=== PATIENT | female | born 2000 | race Caucasian/White ===

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

== ENCOUNTER 2018-10-20 23:34 | Emergency (ER) | payer OTHER, SELFPAY ==
[2018-10-20 23:36] VITALS: BP 106/69; PULSE 96; RESP 16; TEMP 36.3; O2SAT 96
--- NOTE | 2018-10-20 23:55 | ED.VISSUMM ---
- ER Visit Summary Date of Service: 10/20/18 Chief Complaint: Back pain History of Present Illness: The patient is a 18 F who presents with back pain that began yesterday. Patient states she was reaching for something and felt something pull in her low back. Patient states this improved last night. Patient states that tonight she was doing the same thing and felt pain in her low back. Patient states tonight the pain has been constant. Patient describes the pain as sharp, stabbing, and throbbing. Patient states the pain is worse with standing and with extension. Patient states pain improves with flexion. Patient states the pain radiates to both lower extremities but is worse on the right. Patient denies any bowel or bladder changes. Patient denies any saddle anesthesia. Patient states she took a dose of baclofen tonight which did not help. Physical Examination: Vital signs are stable. Patient is afebrile. Patient is in no acute distress. Musculoskeletal exam reveals tenderness and mild spasm of the right lumbar paraspinal muscles. There is no bony crepitance or step-off. Range of motion was limited in extension of the lumbar spine secondary to pain. Strength is 5/5 bilateral and lower extremities. There are no sensory deficits noted. Emergency Department Course and Treatment: Patient was given injections of Toradol and morphine here. Patient was instructed to use ice to the area. Patient was instructed to follow-up with her primary care physician in 5 to 7 days. Patient and family understood and were agreeable with the plan. All questions were answered. Disposition: Discharge home Impression: Acute lumbosacral strain This note was generated with The [employer] dictation software. It may contain incorrect words, spelling, and punctuation that were not noted in review of the chart prior to signing ED Disposition - Plan for ED Patient: Disposition: Home or Assisted Living Diagnosis: Acute lumbosacral myofascial strain Instructions: Back Sprain/Strain Referrals: Nasreen Perez MD [Primary Care Provider] - 5-7 Days
[2018-10-21] MEDS: Ketorolac 60 MG/2 ML Vial IM (00:18)
[2018-10-21] MEDS: Morphine 2 MG/ML Syringe IM (00:18)
[2018-10-21 00:48] VITALS: BP 102/60; PULSE 78; RESP 18; O2SAT 98
== END 2018-10-21 00:48 | disposition home or self-care (01) ==
LOC: ED 10-21 00:13
PROVIDERS: Emergency Provider Emergency Medicine; Family Provider Family Medicine; PCP Family Medicine
DX: S39.012A Strain of muscle, fascia and tendon of lower back, initial encounter (principal); X58.XXXA Exposure to other specified factors, initial encounter; Y93.89 Activity, other specified
CPT/HCPCS: 96372; 99282

== ENCOUNTER 2020-12-14 19:00 | Emergency (ER) | payer OTHER, SELFPAY ==
[2020-12-14 19:01] VITALS: BP 117/86; PULSE 88; RESP 17; TEMP 36.9; O2SAT 100; BMI 21.1
[2020-12-14 20:25] LABS: Bacteria 0 SEEN /hpf (None Seen); Mucous, Urine 0 SEEN /hpf (<or=2+); Red Blood Cells-Urine 0 SEEN /hpf (0-5); Squamous Epithelial Cells - UA 0 SEEN /hpf (5-10); White Blood Cells 0 SEEN /hpf (0-5)
[2020-12-14 20:27] LABS: Absolute Lymphocyte Count 2.78 X10^3/uL (0.83-4.51); Absolute Neutrophil Count 3.8 X10^3/uL (2.0-7.7); Basophil# 0.03 X10^3/uL; Basophil% 0.4 % (0-1); Eosinophil# 0.01 X10^3/uL; Eosinophils% 0.1 % (0-5); Hematocrit 40.8 % (37-47); Hemoglobin 13.4 g/dL (12.0-15.0); Lymphocyte # 2.78 X10^3/ul (0.83-4.51); Lymphocyte % 39.3 % (19-41); Mean Corp Hgb Conc 32.8 g/dL (32-36); Mean Corpuscular Hgb 27.3 pg (27.0-32.0); Mean Corpuscular Volume 83.1 fL (81-99); Monocyte# 0.43 X10^3/uL; Monocyte% 6.1 % (0-10); NRBC Flagged by Analyzer 0 % (0-5); Neutrophil # 3.82 X10^3/uL (2.7-7.7); Platelet Count 368 K/mm3 (150-450); RBC Distribution Width CV 12.8 % (11.6-14.6); RBC Distribution Width SD 38.6 fl (35.1-43.9); Red Blood Count 4.91 M/mm3 (4.2-5.4); White Blood Count 7.1 K/mm3 (4.4-11.0)
[2020-12-14 20:28] LABS: Color, Urine Yellow (Yellow); Glucose, Dipstick Normal (Normal); Ketone-Dipstick 15 mg/dl (Negative); Leukocyte Esterase-Dipstick Negative /ul (Negative); Nitrite-Dipstick Negative (Negative); Occult Blood-Urine Negative /ul (Negative); Protein-Dipstick Negative (Negative); Urine Bilirubin Dipstick Negative (Negative); Urine Clarity Sl. Cloudy (Clear); Urine Urobilinogen Normal (Normal)
[2020-12-14 20:40] LABS: Anion Gap 8 (5-15); BUN 6 mg/dL (7-18); BUN/Creat Ratio 8.3 RATIO (10-20); Calcium,Total 9.9 mg/dL (8.5-10.1); Chloride 101 mmol/L (98-107); Creatinine, Serum 0.72 mg/dL (0.55-1.02); EST Glomerular Filtration Rate 107 mL/min (>60); Est Glom Filt Rate - Afr Amer 129 mL/min (>60); Estimated Creatinine Clearance 118.48 ml/min; Glucose 83 mg/dL (74-106); Potassium 3.4 mmol/L (3.5-5.1); Sodium Level 137 mmol/L (136-145)
[2020-12-14 20:41] LABS: Internal QC Validated? YES +Cl - CLEAR BKGD; Pregnancy, Serum, hCG Quali. NEGATIVE Negative
--- NOTE | 2020-12-14 20:58 | CT_ITS ---
STUDY: CT ABDOMEN AND PELVIS WITH CONTRAST REASON FOR EXAM: Female, 20 years old. RLQ abd pain RADIATION DOSAGE (If Supplied By Facility): CTDIvol = ( 10.49 ) mGy, DLP = ( 359.14 ) mGycm TECHNIQUE: Transaxial images were obtained from the dome of the diaphragm to the symphysis pubis without oral contrast. IV 100mL Isovue-300 was administered. Sagittal and coronal images were reconstructed. Individualized dose optimization techniques were used for this CT. COMPARISON: None. FINDINGS: The visualized lung bases are unremarkable. The visualized portions of the heart are within normal limits. Liver is upper normal in size. There is tiny hypoattenuated density in the right lobe which is too small to classify most likely cyst. Bile ducts are nondilated. Normal gallbladder and extrahepatic biliary system. Normal spleen. Normal pancreas. Normal bilateral adrenal glands. Normal right kidney. Normal left kidney. Normal visualized stomach. Mild nonspecific ileus with diffuse fecal retention in colon.. Normal appendix is not clearly visualized however there are no secondary signs for acute appendicitis. Normal abdominal aorta. Normal inferior vena cava. Normal retroperitoneum. Normal urinary bladder. There is a small amount of fluid in the cul-de-sac to the right of midline which may be on the basis of recent ovulation. Normal abdominal wall. Normal osseous structures. CT/Abdomen/Pelvis W IV Cont ONLY IMPRESSION: Nonspecific ileus with diffuse fecal retention in colon. No definitive evidence for acute appendicitis. Small amount of fluid in the cul-de-sac to the right of midline which may be on the basis of recent ovulation. Electronically Signed: Usman West MD at 21:39 EDT , Service support ,
--- NOTE | 2020-12-14 20:59 | EDS_ITS ---
HPI HPI - GI History of Present Illness Chief Complaint: Abd Pain Informant: patient Abdominal Pain/Flank Pain Onset: Days Context: Gradual Onset Timing: Continuous Quality: Aching Location: RLQ Current Severity: Mild Maximum Severity: Mild Worsened by: Nothing; Not Worsened By Car ride Nausea/Vomiting/Emesis GI Symptom: Positive for Nausea; Negative for Vomiting Onset: Days Quality: Negative for Nonbilious Severity: Mild Diarrhea/Melena/Hematochezia GI Symptom: Negative for Diarrhea, Melena and Hematochezia Associated Symptoms Associated Symptoms: Negative for Dysuria, Frequency, Hematuria and Urgency Narrative Narrative: 20-year-old female history of prior cervical spine surgery. No prior abdominal surgeries. States for last 4 to 5 days she has had right lower quadrant abdominal pain. Associated nausea no vomiting. No diarrhea or fever. No vaginal bleeding. Nothing particular makes it better or worse. No trauma. Prior similar symptoms: No Recent Illness/Hospitalization: No PFSH PFSH Medical History no medical history no medical history Home Medications NK 12/14/20 [History Last Taken Unknown] Allergy/AdvReac Type Severity Reaction Status Date / Time metoclopramide [From Reglan] AdvReac Other Verified 12/14/20 19:01 Surgical History no surgical history Social History Smoking Status: Never smoker ROS ROS ED ROS Narrative Right lower quadrant abdominal pain. Nausea. Review of Systems ROS Unobtainable: Denies due to encephalopathy Constitutional Constitutional ED: Denies chills or fever(s) ENT ENT ED: Denies ear pain Cardiovascular Cardiovascular: Denies chest pain or palpitations Respiratory/Chest Respiratory/Chest: Denies cough or dyspnea Gastrointestinal Gastrointestinal: Reports abdominal pain and nausea; Denies constipation, diarrhea or vomiting Genitourinary Genitourinary ED: Denies dysuria or hematuria Musculoskeletal Musculoskeletal: Denies arthralgias or myalgias Integumentary Denies rash Neurologic Neurologic: Denies headache(s) or weakness Psychiatric Psychiatric: Denies depression Endocrine Endocrinology: Denies polyuria Hematologic/Lymphatic Hematologic/Lymphatic: Denies easy bruising Allergic/Immunologic Allergic/Immunologic ED: Denies urticaria EXAM Physical Exam Narrative Exam Narrative: 20-year-old female no acute distress. Exam normal except for very mild tenderness right lower quadrant only. Rest of the abdomen is completely benign. No hernia or mass. No rebound, guarding rigidity. No hernia. Const Vital Signs: 12/14/20 19:01 Temperature 98.4 F Temperature Source Temporal Pulse Rate 88 Respiratory Rate 17 Blood Pressure 117/86 H Blood Pressure Mean 96 Pulse Ox 100 Oxygen Delivery Method Room Air Positive well nourished and well developed; Negative for obese, cachectic, contractures or unkempt General Appearance ED: well developed and NAD; Negative for unkempt, cachectic or contractures Nutritional Appearance: Negative for cachectic or obese HEENT Reports moist mucous membranes normocephalic and atraumatic; Negative for trauma or tenderness Eyes PERRL and EOMs intact bilaterally Neck no lymphadenopathy, supple and no JVD Resp normal respiratory effort and clear to auscultation bilaterally Auscultation: Negative for rales, rhonchi, wheezes or diminished lung sounds Cardio regular rate, regular rhythm, S1 normal heart sound, S2 normal heart sound and no murmurs GI non-tender, non-distended and no masses Inspection: Negative for abdominal distention Auscultation: normoactive bowel sounds; Negative for hyperactive bowel sounds or hypoactive bowel sounds Palpation: soft and tender; Negative for guarding, rigid or rebound tenderness present Back/Spine no CVA tenderness General Back: Negative for CVA tenderness Extremity full ROM General Extremety ED: Negative for edema or tenderness General Extremity: Negative for edema Neuro moves all extremities Sensorium / Orientation: alert, oriented to person, oriented to place and oriented to time; Negative for orientation impaired, confused or lethargic Psych mental status grossly normal Appearance: Negative for unkempt Skin Lesions: no lesions Rashes: no rashes MDM MDM MDM Narrative Medical decision making narrative: Young female 4 to 5-day history of right lower quadrant abdominal pain. Rule out appendicitis even though clinically I doubt it is an appendicitis if it should be going on 4 to 5 days. Exam is otherwise benign. This could also be an ovarian cyst. Clinically I do not think it is a UTI. Repeat exam patient is doing well. This may be secondary to amount of stool in the right side of the colon. There is also a small amount of free fluid which could be secondary to prior ruptured small ovarian cyst. Patient exam is benign and she is afebrile. I do not think this is appendicitis. CAT scan showed no signs that she will be discharged home with Tylenol Motrin for pain. Fluids and fiber to help with constipation. Lab Data Attestation: I reviewed the patient's lab results. Lab results narrative: CBC normal white count of 7. Hemoglobin 13. Electrolytes unremarkable potassium 3.4. Gap of 8. Normal BUN and creatinine. Serum test negative. Urinalysis normal no signs of infection. I went over all test results with the patient and significant other. Labs: Laboratory Results - last 24 hr 12/14/20 12/14/20 12/14/20 20:01 20:01 20:01 WBC 7.1 RBC 4.91 Hgb 13.4 Hct 40.8 MCV 83.1 MCH 27.3 MCHC 32.8 RDW Std Deviation 38.6 RDW Coeff of Isabella 12.8 Plt Count 368 MPV 10.0 Immature Gran % (Auto) 0.100 Neut % (Auto) 54.0 Lymph % (Auto) 39.3 [place] % (Auto) 6.1 Eos % (Auto) 0.1 Baso % (Auto) 0.4 Absolute Neuts (auto) 3.8 Absolute Lymphs (auto) 2.78 Nucleated RBC % 0 Sodium 137 Potassium 3.4 L Chloride 101 Carbon Dioxide 28.0 Anion Gap 8 BUN 6 L Creatinine 0.72 Estim Creat Clear Calc 118.48 Est GFR (MDRD) Af Amer 129 Est GFR (MDRD) Non-Af 107 BUN/Creatinine Ratio 8.3 L Glucose 83 Calcium 9.9 Serum , Qual NEGATIVE Urine Color Urine Clarity Urine pH Ur Specific [place] Urine Protein Urine Glucose (UA) Urine Ketones Urine Occult Blood Urine Nitrite Urine Bilirubin Urine Urobilinogen Ur Leukocyte Esterase Urine RBC Urine WBC Ur Squamous Epith Cells Urine Bacteria Urine Mucus 12/14/20 20:05 WBC RBC Hgb Hct MCV MCH MCHC RDW Std Deviation RDW Coeff of Isabella Plt Count MPV Immature Gran % (Auto) Neut % (Auto) Lymph % (Auto) [place] % (Auto) Eos % (Auto) Baso % (Auto) Absolute Neuts (auto) Absolute Lymphs (auto) Nucleated RBC % Sodium Potassium Chloride Carbon Dioxide Anion Gap BUN Creatinine Estim Creat Clear Calc Est GFR (MDRD) Af Amer Est GFR (MDRD) Non-Af BUN/Creatinine Ratio Glucose Calcium Serum , Qual Urine Color Yellow Urine Clarity Sl. Cloudy Urine pH 7.0 Ur Specific [place] 1.010 Urine Protein Negative Urine Glucose (UA) Normal Urine Ketones 15 H Urine Occult Blood Negative Urine Nitrite Negative Urine Bilirubin Negative Urine Urobilinogen Normal Ur Leukocyte Esterase Negative Urine RBC 0 SEEN Urine WBC 0 SEEN Ur Squamous Epith Cells 0 SEEN Urine Bacteria 0 SEEN Urine Mucus 0 SEEN Radiography Diagnostic Testing: Radiology Impression Abdomen/Pelvis CT 12/14/20 20:58 IMPRESSION: Nonspecific ileus with diffuse fecal retention in colon. No definitive evidence for acute appendicitis. Small amount of fluid in the cul-de-sac to the right of midline which may be on the basis of recent ovulation. Electronically Signed: Usman West MD at 21:39 EDT , Service support , Discharge Plan Triage Chief Complaint: Abd Pain ED Provider: Wiliam Gee Dx/Rx/DC Orders Clinical Impression: Abdominal pain Instructions: Abdominal Pain Prescriptions: No Action NK RF: 0 Primary Care Provider: Nasreen Perez Referrals: Nasreen Perez MD [Primary Care Provider] - 3-5 Days if not improving Activity Restrictions/Additional Instructions: Tylenol and Motrin for pain as needed. Plenty of fluids and fruits and vegetables and fiber to help you have bowel movements. Follow-up with your doctor as needed. There is no signs of this being appendix. It is either secondary to large stool in the right side of your colon. Your small right-sided ovarian cyst that ruptured. Will treat Disposition Disposition: Home, Self Care
[2020-12-14] MEDS: Ondansetron 4 MG/2 ML Vial IV (21:30)
== END 2020-12-14 22:04 | disposition home or self-care (01) ==
PROVIDERS: Emergency Provider Emergency Medicine; PCP Family Medicine
DX: R10.31 Right lower quadrant pain (principal); R11.0 Nausea
CPT/HCPCS: 74177; 80048; 81001; 84703; 85025; 96374; 99283; Q9967; A4216; J2405

== ENCOUNTER 2021-01-28 08:34 | Day surgery (SDC) | payer OTHER, SELFPAY ==
--- NOTE | 2021-01-27 12:53 | PCM.HP.BLA ---
History and Physical Date of Admission: 01/28/21 HPI: The patient is a 21 year old female presenting for pre-operative visit. She is scheduled for Hysteroscopy D&C, for AUB and endometrial fluid, endometrial thickening on US on 01/28/21. Procedure discussed along with risks, benefits and complications. Other alternatives discussed for management. Consent form signed? Yes. ? ? PAST MEDICAL HISTORY PAST MEDICAL HISTORY Diagnosis Date ? Asthma ? ? Knee osteochondritis dessicans 09/2009 ? Right knee, left side, Saw Dr. Thacker ? Menarche 09-15-2013 ? First Menstral ? Migraines ? ? ACH ? PMH - PAST MEDICAL HISTORY OF 11/06/08 ? normal color vision ? ? PAST SURGICAL HISTORY PAST SURGICAL HISTORY Procedure Laterality Date ? BACK SURGERY HX ? 08/21/2019 ? UPPER ENDOSCOPIC ULTRASOUND ? CURRENT MEDICATIONS Current Outpatient Medications Medication Sig Dispense Refill ? ondansetron (ZOFRAN) 4 mg tablet Take 1 tablet by mouth every 8 hours as needed for nausea/vomiting. 20 tablet 0 ? clindamycin-benzoyl peroxide 1-5 % glwp ? MELATONIN ORAL Take 2 mg by mouth once daily. ? ? ? MAGNESIUM GLYCINATE ORAL Take 200 mg by mouth once daily. ? medroxyPROGESTERone (PROVERA) 10 mg tablet Take 1 tablet by mouth once daily. 10 tablet 0 ? Drospirenone-Ethinyl Estradiol (LOREE 28) 3-0.02 mg per tablet take 1 tablet by mouth once daily (Patient not taking: Reported on 01/18/2021 ) 84 tablet 3 ? spironolactone (ALDACTONE) 100 mg tablet Take 1 tablet by mouth once daily. (Patient not taking: Reported on 12/22/2020 ) ? ? ? baclofen (LIORESAL) 10 mg tablet Take 10 mg by mouth as needed. (Patient not taking: Reported on 12/22/2020 ) ? ? ? mupirocin (BACTROBAN) 2 % ointment Multi-use Generic Tube- Apply to nostrils twice per day, starting 5 days prior to surgery (Patient not taking: Reported on 09/30/2019 ) 15 g 0 ? No current facility-administered medications for this visit. ? ? ALLERGIES: Gluten, Mold, Adhesive Tape (Rosins), and Reglan [Metoclopramide Hcl] ? PERSONAL HISTORY: SOCIAL HISTORY Social History ? Tobacco Use ? Smoking status: Never Smoker ? Smokeless tobacco: Never Used Vaping Use ? Vaping Use: Never used Substance Use Topics ? Alcohol use: No ? Drug use: No ? FAMILY HISTORY: FAMILY HISTORY FAMILY HISTORY Problem Relation Age of Onset ? other (JRA) Father ? ? Hypertension Paternal Grandmother ? ? Cataract Paternal Grandmother ? ? Hypertension Paternal Grandfather ? ? Prostate Cancer Paternal Grandfather ? ? other (Other) Paternal Grandfather ? ? Cataract Maternal Grandmother ? ? Macular Degen Maternal Aunt ? ? Macular Degen Maternal Uncle ? ? other (bicuspid aortic valve) Brother ? ? Stroke Other ? ? maternal great g-ma ? ? REVIEW OF SYMPTOMS: GENERAL: denies fevers or chills ENDOCRINOLOGY: has not been on steroids Cardiology : denies palpitations or chest pain Respiratory: denies SOB or cough Hematology: denies history of prolonged bleeding or easy bruising or VTE Allergy: Denies history of personal or family history of allergy to anesthesia ? PHYSICAL EXAMINATION: ? VITALS: Blood pressure 112/66, weight 137 lb (62.1 kg), last menstrual period 12/27/2020. ? GENERAL: The patient is well nourished, well hydrated in no acute distress. , The patient is oriented to time, place, and person. NECK: Supple. No lynphadenopathy, normal thyroid, no thyromegaly. LUNGS: Clear to auscultation bilaterally. no wheezes, rhonchi or rales HEART: Regular rate and rhythm, Normal heart sounds and No murmurs or gallops ? IMPRESSION: AUB, endometrial fluid and thickening ? PLAN: The risks/benefits/alternatives and personal involved for the planned hysteroscopy D&C with possible polypectomy were reviewed with the patient. Her questions were answered to her satisfaction and she desires to proceed. Consent was signed. I reviewed with her postop instructions and expectations. ? ? I have reviewed and updated past medical and surgical history, medications and allergies This H&P was completed on 01/18/2021 in my office Assessment & Plan Assessment/Plan (1) Abnormal uterine bleeding (AUB):
[2021-01-28 09:07] VITALS: BP 118/75; PULSE 84; RESP 18; TEMP 36.9; O2SAT 100; BMI 21.4
[2021-01-28] MEDS: Ketorolac 30 MG/ML Syringe IV (09:20)
[2021-01-28] MEDS: Acetaminophen 500 MG Tablet 1000 MG PO (09:20)
[2021-01-28] MEDS: Lactated Ringers 1,000 ML 15 ML IV (09:25)
[2021-01-28 09:36] LABS: Hematocrit 39.7 % (37-47); Hemoglobin 13.1 g/dL (12.0-15.0); Mean Corpuscular Hgb 27.3 pg (27.0-32.0); Mean Corpuscular Volume 82.9 fL (81-99); Mean Platelet Vol. 9.6 fl (6.2-12.0); Platelet Count 358 K/mm3 (150-450); RBC Distribution Width CV 13.1 % (11.6-14.6); RBC Distribution Width SD 39.8 fl (35.1-43.9); Red Blood Count 4.79 M/mm3 (4.2-5.4); White Blood Count 4.8 K/mm3 (4.4-11.0)
--- NOTE | 2021-01-28 10:00 | EMB_PTH ---
PATIENT: GLADYS BARBA LOC: [facility] [place] U#:[id number] AGE/SX: 21/F ROOM: RE01/28/[address]: Dr. Nadine Vega MD : 2000 BED: DIS: 01/28/2021 SPEC #: [id number] RECD: 01/28/21 11:38 STATUS: LUZ TAMEZ #: [id number] PRASHANT: 01/28/21 10:[address]: Nadine Vega DEPT: SURGICAL PATHOLOGY RECD BY: Morena Bueno ENTERED: 01/28/21 11:47 SP TYPE: ENDOM BX/C LORY DR: Dr. Nasreen Perez MD Tissues: Endometrium, NOS Procedures: Surgery Specimen Level IV HEADER OPERATION: Hysteroscopy, D & C Symphion PRE-OP DIAGNOSIS: Abnormal uterine bleeding TISSUE SUBMITTED: Endometrial curettings MICROSCOPIC DIAGNOSIS Endometrium, curettings: Proliferative endometrium with focal glandular and stromal breakdown. Chronic endometritis. Rare fragments of benign endocervix. AM:sung 01/29/2021 MICROSCOPIC DESCRIPTION Slides are reviewed. GROSS DESCRIPTION Received in fixative is one container labeled with the patient's name and designated endometrial curettings. The specimen consists of multiple irregular fragments of dean-pink soft tissue mixed with mucoid tissue that in aggregate measure 3 x 2.5 x 0.3 cm. The specimen is totally submitted in one cassette. / SJ:sung 01/28/21 TC:3 CPT: 51490
[2021-01-28 10:20] LABS: Internal QC Validated? YES +Cl - CLEAR BKGD; Pregnancy, Urine Negative Negative
[2021-01-28] MEDS: Lubricating Jelly 60 GM Tube 30 GM (10:37)
[2021-01-28] MEDS: Lidocaine 1% /Epi 1:100 (20ml) 20 ML Vial (10:37)
--- NOTE | 2021-01-28 10:47 | PCM.OPRPT ---
Problems Associated Problem List Diagnoses (1) Abnormal uterine bleeding (AUB): Report of Operation Date of Procedure: 01/28/21 Pre-Operative Diagnosis: abnormal uterine bleeding Post-Operative Diagnosis: same Surgery/Procedure Performed:: Hysteroscopy D&C Description of Surgical Findings:: normal cervix, vagina, endometrial cavity Surgeon: Nadine Vega platform material handling supervisor: None Type of Anesthesia: MAC/Supplemental/Local Anesthesiologist: Tez Fine Special Medications: none Specimen's removed: Endometrial curettings Drains: none Estimated Blood Loss (mL): 10 Fluids Replaced: 200 Description of Procedure: The patient was taken to the OR where she was prepped and draped in dorsal lithotomy position. The weighted speculum was placed in the vagina and the anterior lip of the cervix was grasped with a single-tooth tenaculum. A paracervical block was administered with 1% lidocaine with 1-100,000 epinephrine solution. The cervix was dilated serially with Hegar dilators. The Symphion hysteroscope was placed into the uterine cavity and the above findings were noted. Bilateral tubal ostia were identified. The resection device was readied and inserted and a visual D&C was done of the uterine cavity. The instruments were removed from the vagina. The specimen was handed off and sent to pathology. All sponge and needle counts were correct. Vaginal sweep was performed by me. The patient was awakened and taken to the recovery room in stable condition. Calculated hysteroscopic fluid deficit is approximately 300 cc of normal saline Findings: Endometrial cavity: Normal, no fibroids or polyps noted, thin, normal-appearing endometrium without focal abnormality Cervix: Normal Vagina: Normal Grafts/Implants Used: none Procedure Start Time: 10:37 Procedure Stop Time: 10:45 Complications none
--- NOTE | 2021-01-28 10:50 | PCM.DC ---
Discharge Instructions Diet Discharge Diet: No restrictions Activity May resume sexual activity in: 2 weeks Lifting Restrictions: none Dressing / Incision Call your doctor if your incision/area has: Sudden Increased Bleeding and Foul Smelling Discharge Call your doctor if you observe: Fever of 101 or Higher and Using more than 1 pad per hour (for 2 hrs in a row) Follow Up Care Please Follow Up With: Nadine Vega MD When: as needed. Call [phone] to make an appointment or with any concerns. Test Results: Test results from this visit will be discussed in further detail at your follow-up appointment, if applicable. Discharge Plan Admission Primary Reason for Your Visit: D&C for abnormal uterine bleeding Attending Provider: Nadine Vega Primary Care Provider: Nasreen Perez Discharge Orders/Prescriptions Prescriptions: Continued magnesium glycinate 100 mg tablet 100 mg tablet 100 mg PO QDAY RF: 0 melatonin 5 mg capsule 5 mg PO QHS RF: 0 ondansetron HCl [Zofran] 4 mg Tablet 4 mg PO Q6H PRN (Reason: Nausea) RF: 0 Discontinued medroxyprogesterone 10 mg Tablet 10 mg PO DAILY RF: 0 Referrals / Follow Up: Nasreen Perez MD [Primary Care Provider] - Disposition Disposition (needs filled in before D/C Order can be placed): Home, Self Care
[2021-01-28 10:55] VITALS: BP 108/60; BP 118/75; PULSE 94; RESP 18; TEMP 36.1; O2SAT 94
[2021-01-28 11:02] VITALS: BP 118/75; BP 97/61; PULSE 74; RESP 18; O2SAT 96
[2021-01-28 11:10] VITALS: BP 111/54; BP 118/75; PULSE 69; RESP 18; O2SAT 99
[2021-01-28 11:15] VITALS: BP 118/75; BP 124/82; PULSE 82; RESP 18; TEMP 36.6; O2SAT 100
[2021-01-28 12:30] VITALS: BP 111/68; BP 118/75; PULSE 73; RESP 16; O2SAT 99
== END 2021-01-28 12:30 | disposition home or self-care (01) ==
LOC: SDC 08:35 → AC 08:36
PROVIDERS: PCP Family Medicine; Referring Provider Obstetrics & Gynecology; Visit Provider Obstetrics & Gynecology
PROC: 0UB98ZZ Excision of Uterus, Via Natural or Artificial Opening Endoscopic (ICD-10-PCS; CPT 58558; principal; 2021-01-28 09:50)
DX: N93.9 Abnormal uterine and vaginal bleeding, unspecified (principal); N71.1 Chronic inflammatory disease of uterus; Z20.822 Contact with and (suspected) exposure to COVID-19
CPT/HCPCS: 58558; 81025; 85027; 87426; 88305; J7120; J2405

== ENCOUNTER 2021-04-15 10:03 | Outpatient (CLI) | payer OTHER, SELFPAY ==
--- NOTE | 2021-04-15 10:13 | ECHOD_ITS ---
Reason For Study: PALPITATIONS Procedure This was a 2D Doppler, Color Flow transthoracic echocardiogram. Exam performed in department. Left Ventricle Normal LV size. Left ventricular systolic function is normal. The estimated ejection fraction is 55 %. Normal diastology for age. No regional wall motion abnormalities noted. Right Ventricle Normal RV size. Normal systolic function. Atria Normal left atrium. Normal right atrium. Mitral Valve Equivocal mitral valve prolapse. Tricuspid Valve Normal tricuspid valve. Mild tricuspid valve insufficiency. Pulmonary artery systolic pressure is 19 mmHg. Aortic Valve Normal aortic valve. Trisinus/trileaflet aortic valve. Pulmonic Valve Normal pulmonic valve. Great Vessels Normal aortic root. The pulmonary artery is normal size. Normal inferior vena cava. Pericardium/Pleural No pericardial effusion. MMode/2D Measurements & Calculations LVIDd: 4.6 cm IVSd: 0.55 cm Ao root diam: 3.0 cm LVIDs: 3.0 cm LVPWd: 0.67 cm RVDd: 2.7 cm FS: 35.6 % LAV(MOD-sp4): 31.3 ml LA A4 area: 14.4 cm2 LA dimension(2D): 2.6 cm RA A4 area: 11.5 cm2 Time Measurements MV dec time: 0.13 sec Doppler Measurements & Calculations MV E max hector: 75.1 cm/sec Lat Peak E' Hector: 17.4 cm/sec Med Peak E' Hector: 12.5 cm/sec MV A max hector: 48.0 cm/sec E/E' lat: 4.3 E/E' med: 6.0 MV E/A: 1.6 Ao V2 max: 117.6 cm/sec LV V1 max: 92.0 cm/sec PA V2 max: 99.5 cm/sec Ao max P.5 mmHg LV V1 max P.4 mmHg TR max hector: 197.4 cm/sec TR max P.6 mmHg ECHO/Echo Complete Interpretation Summary Normal LV size. Left ventricular systolic function is normal. The estimated ejection fraction is 55 %. Normal diastology for age. Equivocal mitral valve prolapse. Trisinus/trileaflet aortic valve. Normal aortic valve. Ordering Physician: Jeanie Knutson Referring Physician: Nasreen Perez Performed By: Karen Elder RDCS, RVT
== END 2021-04-15 23:59 | disposition short-term general hospital (02) ==
PROVIDERS: PCP Family Medicine; Referring Provider Nurse Practitioner Family; Visit Provider Nurse Practitioner Family
DX: R00.2 Palpitations (principal)
CPT/HCPCS: 93306

== ENCOUNTER → 2021-07-16 | Outpatient (CLI) | payer OTHER, SELFPAY ==
--- NOTE | 2021-07-16 11:11 | RAD_ITS ---
EXAM: XR CHEST, 2 VIEWS CLINICAL INDICATION: ACUTE BRONCHITIS TECHNIQUE: Frontal and lateral views of the chest. This report was created using Deep[employer] report generation technology. COMPARISON: 08/16/2016 FINDINGS: LUNGS AND PLEURAL SPACES: Unremarkable. No consolidation or edema. No pneumothorax. No effusion. HEART: Unremarkable. Cardiac silhouette not enlarged. MEDIASTINUM: Central airways and mediastinal contour are unremarkable. BONES/JOINTS: Unremarkable. SOFT TISSUES: Unremarkable. RAD/Chest PA and Lateral IMPRESSION: No radiographic evidence of acute cardiopulmonary disease. Electronically Signed: Rafael Nava MD at 16:59 EDT Reading Location ID and State: [facility] / [place] , Service support ,
== END | disposition home or self-care (01) ==
LOC: MTRAD 11:10
PROVIDERS: PCP Family Medicine; Referring Provider Family Medicine; Visit Provider Family Medicine
DX: J20.9 Acute bronchitis, unspecified (principal)
CPT/HCPCS: 71046

== ENCOUNTER 2021-10-06 11:24 | Outpatient (CLI) | payer OTHER, SELFPAY | END 2021-10-06 23:59 | disposition home or self-care (01) | PROVIDERS: PCP Family Medicine; Referring Provider Internal Medicine Gastroenterology; Visit Provider Internal Medicine Gastroenterology | DX: D3A.00 Benign carcinoid tumor of unspecified site (principal) | CPT/HCPCS: 36415 ==

== ENCOUNTER 2021-12-22 16:30 | Outpatient (RCR) | payer OTHER, SELFPAY ==
--- NOTE | 2021-06-16 19:15 | HP.PTEVAL ---
Patient's Visit Information GLADYS BARBA is a 21 year old F referred to Physical Therapy by RUY AWAD with a diagnosis of GONCALVES, EDS. Date of Evaluation: 06/16/21 Physical Therapist: BETSY Ortega - Visit Plan Frequency: 2x /Week Duration: 2 Months Plan: 2X/ week for 8 weeks for AT for general progressive light strengthening, core stability, LE strengthening, postural exercises, progressive endurance exercises per patient tolerance. +++Going up and down the stairs is a lot of exhertion for the patient and sometimes her sx are delayed so monitor accordingly. - Subjective Pt has weird boughts of illness throughout her life. In Dec she had stomach issues and then HR stuff and then exercise intolerance. Before that she was rock climbing, yoga, etc and then stop and could not do that. 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 Pt wants to do swim therapy here. They are hoping she can exercise in the water and not get dizzy and feel like pass out. Pt takes in what is happening but does not respond and feels extremely fatigued. Tilt table came back borderline. She has a lot of symptoms of GONCALVES. Waiting on genetic testing because EDS and GONCALVES go together. She is seeing rhumatology, functional medicine, neuro optomotrist and neouromuscular Dr. She has a consult with OT in July. They are doing land based therapy now in supine exercises. She works. 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 She feels the episodes when they come on and she feels foggy and HR starts to elevate. - Pain neck pain Pain Intensity (Out of 10): 4 LBP Pain Intensity (Out of 10): 5 Pain Intensity Range: 5 - Objective Gait: Walks with normal gait pattern with no veering. Stairs: up and down recip with no hand rail. CATSIB: 90 (a little dizzy)... Pt tended to lose her balance to the L especially with EC but did occur with EO. (After the stairs and CATSIB she saw black spots)... LE MMT: B hip flex 4/5, B knee ext and knee flex 4/5, B hip abd 4/5. FGA: 20 - Balance/Special Test Scores Functional Gait Assessment Score: 20 % Disability: 33.3400 CATSIB Score (Max score 120 seconds): 90 Lower Extremity Functional Score: 45 - Goals Goal 1:: Be able to complete I exercise program without having symptoms Goal Time Frame: 6-8 Weeks Goal 2:: Increase CATSIB by 5 points to decrease fall risk (score was 90) Goal Time Frame: 6-8 Weeks Goal 3:: Be able to go up and down the stairs without feeling wiped out Goal Time Frame: 6-8 Weeks Goal 4:: Increase FGA by 3 points (score was 20) Goal Time Frame: 6-8 Weeks - Rehabilitation Potential Rehabilitation Potential: Good - Anticipated Interventions Patient/Client Instruction: Educate patient on: Condition, Plan of Care For the Purpose of:: To decrease pain, To improve nutrient delivery to tissue, To increase oxygenation perfusion, To improve muscle performance and motor function, To improve ability to perform ADL's, To increase tolerance to activity/condition/position, To improve performance and independence with ADL's, To decrease level of supervision to perform tasks, To improve ability of physical actions for home/community/work/leisure, To improve gait and locomotor functions, To improve health of tissue, To improve endurance, To improve balance Therapeutic Exercise to Include: Strength training, Endurance training, Balance training, Postural training, Gait and locomotor training, Neuromotor development, In an aquatic setting, Dynamic Lumbar Stabilization, Scapular Strength/Stabilization For the Purpose of:: To decrease pain, To increase ROM, To improve nutrient delivery to tissue, To improve muscle performance and motor function, To improve ability to perform ADL's, To increase tolerance to activity/condition/position, To improve performance and independence with ADL's, To improve health of tissue, To increase flexibility/ROM, To improve endurance, To improve balance Thank you for the opportunity to evaluate your patient. For Medicare and Medicare HMO plans, please review the plan of care and approve it. It will need to be FAXED BACK to us at [phone] for Medicare purposes. For Medicare only, by signing this I certify the plan of care. Please let me know if there are questions or concerns regarding this plan of care. Physician Signature: Date:
--- NOTE | 2021-07-12 12:16 | HP.OTEVAL_ITS ---
Patient's Visit Information GLADYS BARBA is a 21 year old F, referred to Occupational Therapy by RUY AWAD, with a diagnosis of Hypermobility arthralgia. Date of Evaluation: 07/07/21 Occupational Therapist: Mecca Little, OTR/Jerry, CHT - Subjective This 21 year old female was seen for OT eval with dx of Hypermobility ar thralgia. she arrives today due to pain and weakness in UE. 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 pt states even in collage this did not have the issues- pt also underwent neck sx due to herniated disc in her cervical spine over a year ago. states she felt in Mar-2021 she became weaker on her left side and would like to know what she can do to return to a PLOF. pt states she has had issues with a lot of different. August of 2019 spine sx. neck c4-c5. prior to neck sx she did have sharp shooting pain. will see genetic hector. neromusculare. electrophisiology. functional medicie Dr. vazquez. [facility] Cardiology d/c pt to electrophysiology. 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 - ROM Elbow: right +15/155 left +10/150 Forearm: right/Left WNL ROM Comments: pt demo with hyper extension at left elbow this can cause issues with her ulnar nerve- but she denies tingling/numbness just feels odd - Strength Shoulder: right peak force 21.3# left 13.8# Elbow: right peak force 17# left 14.2# Wrist: right ext peak force 5.4# left 5.1# Tool Checker: right 90# left 70# Lateral Pinch: right 12# left 8# Tripod Pinch: right 12# left 12# Tip-to-Tip Pinch: right 4# left 4# - Sensation Sensation Comments: denies - Goals Goal:: pt will demo a increase in Bilateral UE peak force by 5# or greater to increase pts ind. with ADLs and IADLs by d/c. pt will demo increase in left business intelligence engineer strength to 90# or greater to increase pts ind. with ADls and IADLs by d.c. pt will demo a increase in left lateral pinch by 4# to increase pts ind. with ADls and IADls by d.c Goal:: pt will demo understanding of body mechanics to avoid positions of hyper extension of elbows to decrease pain and increase use with ADls and IADls by d/c Goal:: pt will report no pain greater than 1/10 with use of bilateral UE with ADLs and IADls Goal:: Pt will demo understanding of joint protection and ergonomics when performing BADLs and IADLs by d/c. Pt will demo understanding of adaptive Equipment use to decrease stress on joints to allow pt to perform BADSL and IADLS at JACQUE level. - Rehabilitation General Assessment: pt demo with a weakness of left UE and hyper extension of elbow-( questioning if she is putting pressure on her ulnar nerve with this position). pt is limited with work, ADls and IADLs at this time due to symptoms of weakness and hypermobility. pt would benefit from skilled OT services. 1-2x week for 4 weeks to return pt to [facility]. Rehabilitation Potential: Good - Anticipated Interventions A/AAROM/PROM, Strengthening, Orthoses, Joint Protection/Energy Conservation, Ergonomic Education, Education re assistive Equipment, Education re Diagnosis, Home Program - Visit Plan Frequency: 1-2x /Week Duration: 4 Weeks TEXT: Thank you for the opportunity to evaluate your patient. For Medicare and Medicare HMO plans, please review the plan of care and approve it. It will need to be FAXED BACK to us at [phone] for Medicare purposes. Please let me know if there are questions or concerns regarding this plan of care. Physician Signature: Da te:
--- NOTE | 2021-07-14 16:57 | HP.PTREVAL ---
RUY AWAD, It has been my pleasure to treat GLADYS BARBA over the last 8 visits for RIMMA GONCALVES. Please see the progress note below for an update on the physical therapy plan of care! Subjective: Pt has only had a couple bad days since consistent with swim. She has more energy after work and can make it until bedtime and has not had as many HR issues and has not been as dizzy. She is overall feel much better. She sees the Dr in August. Objective/Function: CATSAIB 105. FGA 24. Stairs: up and down recip with one rail with some SOB but not like she used to have and the feeling off she had last time Plan Plan: 2X/ week for 4 weeks for AT for 60 min for general progressive light strengthening, core stability, LE strengthening, postural exercises, progressive endurance exercises per patient tolerance. +++Going up and down the stairs is a lot of exhertion for the patient and sometimes her sx are delayed so monitor accordingly. Balance/Gait/Functional tests - Balance/Special Test Scores Functional Gait Assessment Score: 24 % Disability: 20.0000 CATSIB Score (Max score 120 seconds): 105 Lower Extremity Functional Score: 57 Goals Goal 1:: Be able to complete I exercise program without having symptoms Goal Time Frame: 6-8 Weeks Goal Progress: Progressing Goal 2:: Increase CATSIB by 5 points to decrease fall risk (score was 90) Goal Time Frame: 6-8 Weeks Goal 3:: Be able to go up and down the stairs without feeling wiped out Goal Time Frame: 6-8 Weeks Goal Progress: Progressing Goal 4:: Increase FGA by 3 points (score was 20) Goal Time Frame: 6-8 Weeks Anticipated Interventions Patient/Client Instruction: Educate patient on: Condition, Plan of Care For the Purpose of:: To decrease pain, To improve nutrient delivery to tissue, To increase oxygenation perfusion, To improve muscle performance and motor function, To improve ability to perform ADL's, To increase tolerance to activity/condition/position, To improve performance and independence with ADL's, To decrease level of supervision to perform tasks, To improve ability of physical actions for home/community/work/leisure, To improve gait and locomotor functions, To improve health of tissue, To improve endurance, To improve balance Therapeutic Exercise to Include: Strength training, Endurance training, Balance training, Postural training, Gait and locomotor training, Neuromotor development, In an aquatic setting, Dynamic Lumbar Stabilization, Scapular Strength/Stabilization For the Purpose of:: To decrease pain, To increase ROM, To improve nutrient delivery to tissue, To improve muscle performance and motor function, To improve ability to perform ADL's, To increase tolerance to activity/condition/position, To improve performance and independence with ADL's, To improve health of tissue, To increase flexibility/ROM, To improve endurance, To improve balance Please do not hesitate to contact me at [phone] by phone or if you have questions or concerns regarding this new plan of care! Sincerely, Pat Mann, MPT
--- NOTE | 2021-08-24 15:52 | HP.OTDCSUM_ITS ---
It has been my pleasure to treat GLADYS BARBA under orders from RUY AWAD, for the diagnosis of Hypermobility arthralgia for a total of 10 visit(s). Please see the following information for a summary of their discharge status. % Improvement: 70 Objective/Function: pt demo with full ROM of bilateral UE- still demo with hyper ext of bilateral elbow pt has been ed. on limiting this posture -. right lateral pinch 12# left 10#. right tripod pinch 14# left 10#. right 75# left 60# Patient Goals: Regain Strength, Decrease Pain, Improve Fine Motor Skills, Use Hand/Wrist/Arm Normally Again Goal:: pt will demo a increase in Bilateral UE peak force by 5# or greater to increase pts ind. with ADLs and IADLs by d/c. pt will demo increase in left pocket cutter strength to 90# or greater to increase pts ind. with ADls and IADLs by d.c. pt will demo a increase in left lateral pinch by 4# to increase pts ind. with ADls and IADls by d.c Goal:: pt will demo understanding of body mechanics to avoid positions of hyper extension of elbows to decrease pain and increase use with ADls and IADls by d/c Goal:: pt will report no pain greater than 1/10 with use of bilateral UE with ADLs and IADls Goal:: Pt will demo understanding of joint protection and ergonomics when performing BADLs and IADLs by d/c. Pt will demo understanding of adaptive Equipment use to decrease stress on joints to allow pt to perform BADSL and IADLS at JACQUE level. Plan: plan for hand strengthening, to prevent hyperextension of PIP joints for cutting food, rock climbing Discharge Comments: pt was seen for 10- OT visits meeting OT goals- therapy ed. pt on joint protection- ad. eq. and isometric exercise- pt demo understanding to cont.with her HEP and agree to D/C If there are questions or concerns regarding this patient's occupational therapy, please fell free to call me at [phone]. Thank you for the referral of this patient. Sincerely, Mecca Little, OTR/L, CHT
--- NOTE | 2021-10-18 09:33 | HP.PTREVAL_ITS ---
RUY AWAD, It has been my pleasure to treat GLADYS BARBA over the last 25 visits for GONCALVESRIMMA AFJARDO. Please see the progress note below for an update on the physical therapy plan of care! Subjective: Pt feels that AT is helping her a lot. She thinks that she can do all the regular exercises on her own but she can not do the cardio on her own and she needs an hour cause she gets dizzy and sees spots and needs to rest between the cardio. She still can not do much on land other than walking but her daily life is getting much easier. Objective/Function: CATSIB 112/120. FGA 25. Ambulation with horizontal head turns increased pt dizziness. Plan Plan: *f/u with supervising PT next. Would recommend continued I program for strength and continued AT for cardiac rehab. 2X/ week for 4 weeks for AT for 60 min for general progressive light strengthening, core stability, LE strengthe ari, postural exercises, progressive endurance exercises per patient tolerance. +++Going up and down the stairs is a lot of exhertion for the patient and sometimes her sx are delayed so monitor accordingly. Balance/Gait/Functional tests - Balance/Special Test Scores Functional Gait Assessment Score: 25 % Disability: 16.6700 CATSIB Score (Max score 120 seconds): 112 Lower Extremity Functional Score: 59 Goals Goal 1:: Be able to complete I exercise program without having symptoms Goal Time Frame: 6-8 Weeks Goal Progress: Progressing Goal 2:: Increase CATSIB by 5 points to decrease fall risk (score was 112 at re- eval) Goal Time Frame: 6-8 Weeks Goal Progress: met first goal now increa Goal 3:: Be able to go up and down the stairs without feeling wiped out Goal Time Frame: 6-8 Weeks Goal Progress: Goal Met Goal 4:: Increase FGA by 3 points (score was 20 at eval and [id number] 25) Goal Time Frame: 6-8 Weeks Goal Progress: Goal Met Goal 5:: Be able to complete 5 min of cardio sets in the water with no symptoms (no dizzy and no spots). Goal Time Frame: 8-12 Weeks Anticipated Interventions Patient/Client Instruction: Educate patient on: Condition, Plan of Care For the Purpose of:: To decrease pain, To improve nutrient delivery to tissue, To increase oxygenation perfusion, To improve muscle performance and motor function, To improve ability to perform ADL's, To increase tolerance to activity/condition/position, To improve performance and independence with ADL's, To decrease level of supervision to perform tasks, To improve ability of physical actions for home/community/work/leisure, To improve gait and locomotor functions, To improve health of tissue, To improve endurance, To improve balance Therapeutic Exercise to Include: Strength training, Endurance training, Balance training, Postural training, Gait and locomotor training, Neuromotor development, In an aquatic setting, Dynamic Lumbar Stabilization, Scapular Strength/Stabilization For the Purpose of:: To decrease pain, To increase ROM, To improve nutrient delivery to tissue, To improve muscle performance and motor function, To improve ability to perform ADL's, To increase tolerance to activity/condition/position, To improve performance and independence with ADL's, To improve health of tissue, To increase flexibility/ROM, To improve endurance, To improve balance Please do not hesitate to contact me at [phone] by phone or if you have questions or concerns regarding this new plan of care! Sincerely, Pat Mann, MPT
== END 2021-12-22 19:00 | disposition home or self-care (01) ==
LOC: PT 16:30
PROVIDERS: PCP Family Medicine
DX: M25.50 Pain in unspecified joint (principal)
CPT/HCPCS: 97110; 97113; 97162; 97166; 97530

== ENCOUNTER 2022-01-03 09:07 | Day surgery (SDC) | payer OTHER, SELFPAY ==
--- NOTE | 2022-01-03 | GASB_PTH ---
PATIENT: GLADYS BARBA LOC: EN U#:[id number] AGE/SX: 21/F ROOM: RE01/03/[address]: Dr. Alvarado Alfonso DO : 2000 BED: DIS: 01/03/2022 SPEC #: [id number] RECD: 01/03/22 13:33 STATUS: LUZ REQ #: [id number] PRASHANT: 01/03/22 00:[address]: Alvarado Alfonso DEPT: SURGICAL PATHOLOGY RECD BY: Willis Reis ENTERED: 01/04/22 09:04 SP TYPE: Gastric Bx OTHR DR: Dr. Nasreen Perez MD Tissues: A - Duodenum, NOS B - Pylorus C - Ileum, NOS D - COLON BIOPSY Procedures: Special Stain Group II Surgery Specimen Level IV Alcian Blue/PAS (control) HEADER OPERATION: Colonoscopy, E[place] [place] biopsy PRE-OP DIAGNOSIS: Abdominal pain TISSUE SUBMITTED: A ? Duodenum biopsy, B ? Pylorus biopsy, C ? Terminal ileum biopsy, D ? Random colonic biopsy MICROSCOPIC DIAGNOSIS A. Duodenum, biopsy: No pathologic change. B. Pylorus, biopsy: Chronic gastritis. Focal intestinal metaplasia. No evidence of dysplasia. See comment. C. Terminal ileum, biopsy: No pathologic change. D. Colon, random biopsy: Mild melanosis coli. AM:sung 01/05/2022 COMMENT B. The results of immunohistochemistry for Helicobacter pylori will be reported separately ([id number]). Immunohistochemistry ([id number]) for P53 and Ki-67 will be performed and results will be reported separately. Alcian blue/PAS stain with matched control supports the above diagnosis. MICROSCOPIC DESCRIPTION Slides are reviewed. GROSS DESCRIPTION A - Received in fixative is one container labeled with the patient's name and designated duodenum biopsy. The specimen consists of two irregular fragments of light dean soft tissue that in aggregate measure 0.6 x 0.5 x 0.1 cm. The specimen is totally submitted in one cassette. B - Received in fixative is one container labeled with the patient's name and designated pylorus biopsy. The specimen consists of two irregular fragments of light dean soft tissue that in aggregate measure 0.7 x 0.2 x 0.1 cm. The specimen is totally submitted in one cassette. C - Received in fixative is one container labeled with the patient's name and designated terminal ileum biopsy. The specimen consists of multiple irregular fragments of light dean soft tissue that in aggregate measure 0.6 x 0.3 x 0.1 cm. The specimen is totally submitted in one cassette. D - Received in fixative is one container labeled with the patient's name and designated random colon biopsy. The specimen consists of multiple irregular fragments of light dean soft tissue that in aggregate measure 1 x 0.8 x 0.1 cm. The specimen is totally submitted in one cassette. / AM:sung 01/04/2022 TC:3 CPT: 07606 x4, 69886
[2022-01-03 09:30] VITALS: BP 118/69; PULSE 81; RESP 18; TEMP 36.8; O2SAT 96; BMI 22.8
[2022-01-03] MEDS: Lactated Ringers 1,000 ML 15 ML IV (09:30)
[2022-01-03 10:01] LABS: Internal QC Validated? YES +Cl - CLEAR BKGD; Pregnancy, Serum, hCG Quali. NEGATIVE Negative
--- NOTE | 2022-01-03 10:15 | IMM_PTH ---
PATIENT: GLADYS BARBA LOC: EN U#:[id number] AGE/SX: 21/F ROOM: RE01/03/[address]: Dr. Alvarado Alfonso DO : 2000 BED: DIS: 01/03/2022 SPEC #: [id number] RECD: 01/04/22 09:56 STATUS: LUZ REQ #: [id number] PRASHANT: 01/03/22 10:[address]: Alvarado Alfonso DEPT: IMMUNOHISTOCHEMISTRY RECD BY: Sharon Hairston ENTERED: 01/04/22 09:57 SP TYPE: IMMUNO OTHR DR: Dr. Nasreen Perez MD Tissues: B - Pyloric antrum Procedures: H Pylori (initial) KI-67 (add) P53 (add) PHYSICIAN & INSTITUTION [place] [id number] SPECIMEN INFORMATION: Tissue Source: B ? Pylorus biopsy Clinical Info: Abdominal pain Specimen Number: [id number] CPT code: 09831, 51642 x2 METHODOLOGY: Deparaffinized sections of prefer/formalin-fixed tissue or PAP/DQ stained slides are incubated with monoclonal/polyclonal antibodies/oligonucleotide probes. Localization is made via biotin free immunoperoxidase method. Appropriate controls are performed and reacted as expected. Results on target cell population are indicated in the following table: RESULTS: ANTIBODY / CLONE RESULT Block B H Pylori (polyclonal) negative P53 (DO-7) negative Ki-67 (30-9) negative These tests were developed and their performance characteristics determined by [facility]. They may not have been cleared or approved by the U.S. Food and Drug Administration. The FDA has determined that such clearance or approval is not necessary. The above immunohistochemical/dualISH markers are ordered and reviewed by the Pathologist. INTERPRETATION: B. Pylorus, biopsy: Negative for Helicobacter pylori organisms. No evidence of dysplasia. AM:sung 01/06/2022
[2022-01-03 11:00] VITALS: BP 108/72; BP 118/69; PULSE 89; RESP 16; TEMP 36.6; O2SAT 98
--- NOTE | 2022-01-03 11:00 | OP.EGD_ITS ---
Patient Name: Francine Sarah Procedure Date: 01/03/2022 10:29 AM Date of : 2000 Age: 21 Procedure: Upper GI endoscopy Indications: Lower abdominal pain Providers: Alvarado Alfonso DO Medicines: Monitored Anesthesia Care Patient Profile: This is a 21 year old female. Refer to note in patient chart for documentation of history and physical. Patient has symptoms of chronic abdominal cramping, chronic abdominal distention, chronic right lower quadrant abdominal pain and chronic left upper quadrant abdominal pain. Complications: No immediate complications. Procedure: Pre-Anesthesia Assessment: - Prior to the procedure, a History and Physical was performed, and patient medications and allergies were reviewed. The patient is competent. The risks and benefits of the procedure and the sedation options and risks were discussed with the patient. All questions were answered and informed consent was obtained. Patient identification and proposed procedure were verified by the physician in the pre-procedure area. Mental Status Examination: alert and oriented. Airway Examination: normal oropharyngeal airway and neck mobility. Respiratory Examination: clear to auscultation. CV Examination: normal. Prophylactic Antibiotics: The patient does not require prophylactic antibiotics. Prior Anticoagulants: The patient has taken no previous anticoagulant or antiplatelet agents. ASA Grade Assessment: II - A patient with mild systemic disease. After reviewing the risks and benefits, the patient was deemed in satisfactory condition to undergo the procedure. The anesthesia plan was to use monitored anesthesia care (MAC). Immediately prior to administration of medications, the patient was re-assessed for adequacy to receive sedatives. The heart rate, respiratory rate, oxygen saturations, blood pressure, adequacy of pulmonary ventilation, and response to care were monitored throughout the procedure. The physical status of the patient was re-assessed after the procedure. After obtaining informed consent, the endoscope was passed under direct vision. Throughout the procedure, the patient's blood pressure, pulse, and oxygen saturations were monitored continuously. The pediatric colonoscope was introduced through the mouth, and advanced to the second part of duodenum. The upper GI endoscopy was accomplished without difficulty. The patient tolerated the procedure well. Scope In: 10:35:47 AM Scope Out: 10:40:23 AM Total Procedure Duration Time 0 hours 4 minutes 36 seconds Findings: The examined esophagus was normal. The entire examined stomach was normal. Mildly erythematous mucosa without active bleeding and with no stigmata of bleeding was found in the first portion of the duodenum. Biopsies were taken with a cold forceps for histology. Verification of patient identification for the specimen was done. Estimated blood loss was minimal. Patchy mildly erythematous mucosa without bleeding was found at the pylorus. Impression: - Normal esophagus. - Normal stomach. - Erythematous duodenopathy. Biopsied. Recommendation: - Discharge patient to home. - Resume previous diet. - Continue present medications. - Continue present medications. Procedure Code(s): --- Professional --- 20658, Esophagogastroduodenoscopy, flexible, transoral; with biopsy, single or multiple CPT copyright 2017 [employer]. All rights reserved. The codes documented in this report are preliminary and upon ladle operator review may be revised to meet current compliance requirements. Alvarado Alfonso DO 01/03/2022 11:00:07 AM This report has been signed electronically. Number of Addenda: 0 Note Initiated On: 01/03/2022 10:29 AM
--- NOTE | 2022-01-03 11:01 | OP.CCLET_ITS ---
01/03/2022 Nasreen Perez [address] [place] [address] Re : Upper GI endoscopy procedure for Francine Sarah Dear Dr. Perez This procedure was performed on Monday, January 03, 2022. My impressions and recommendations are as follows: Impressions : - Normal esophagus. - Normal stomach. - Erythematous duodenopathy. Biopsied. Recommendations : - Discharge patient to home. - Resume previous diet. - Continue present medications. - Continue present medications. My findings are described in the full procedure note, which is enclosed. If I can be of further assistance, please feel free to contact me at . Sincerely, Alvarado Alfonso, 01/03/2022 11:00:07 AM This report has been signed electronically.
[2022-01-03 11:05] VITALS: BP 118/69; BP 98/63; PULSE 83; RESP 16; O2SAT 99
--- NOTE | 2022-01-03 11:06 | OP.COLON_ITS ---
Patient Name: Francine Sarah Procedure Date: 01/03/2022 10:40 AM Date of : 2000 Age: 21 Procedure: Colonoscopy Indications: Abdominal pain in the left lower quadrant, Abdominal pain in the left upper quadrant, Abdominal pain in the right lower quadrant, Clinically significant diarrhea of unexplained origin Providers: Alvarado Alfonso DO Medicines: Monitored Anesthesia Care Patient Profile: This is a 21 year old female. Refer to note in patient chart for documentation of history and physical. Patient has symptoms of chronic abdominal cramping, chronic abdominal distention, chronic right lower quadrant abdominal pain and chronic left upper quadrant abdominal pain. Last Colonoscopy: 5 years ago. Complications: No immediate complications. Procedure: Pre-Anesthesia Assessment: - Prior to the procedure, a History and Physical was performed, and patient medications and allergies were reviewed. The patient is competent. The risks and benefits of the procedure and the sedation options and risks were discussed with the patient. All questions were answered and informed consent was obtained. Patient identification and proposed procedure were verified by the physician in the pre-procedure area. Mental Status Examination: alert and oriented. Airway Examination: normal oropharyngeal airway and neck mobility. Respiratory Examination: clear to auscultation. CV Examination: normal. Prophylactic Antibiotics: The patient does not require prophylactic antibiotics. Prior Anticoagulants: The patient has taken no previous anticoagulant or antiplatelet agents. ASA Grade Assessment: II - A patient with mild systemic disease. After reviewing the risks and benefits, the patient was deemed in satisfactory condition to undergo the procedure. The anesthesia plan was to use monitored anesthesia care (MAC). Immediately prior to administration of medications, the patient was re-assessed for adequacy to receive sedatives. The heart rate, respiratory rate, oxygen saturations, blood pressure, adequacy of pulmonary ventilation, and response to care were monitored throughout the procedure. The physical status of the patient was re-assessed after the procedure. After I obtained informed consent, the scope was passed under direct vision. Throughout the procedure, the patient's blood pressure, pulse, and oxygen saturations were monitored continuously. The colonoscope was introduced through the anus and advanced to the terminal ileum. The colonoscopy was performed without difficulty. The patient tolerated the procedure well. The quality of the bowel preparation was good. Scope In: 10:42:29 AM Scope Withdrawal Time 0 hours 7 minutes 53 seconds Scope Out: 10:54:15 AM Total Procedure Duration Time 0 hours 11 minutes 46 seconds Findings: The perianal and digital rectal examinations were normal. The colon (entire examined portion) appeared normal. Biopsies for histology were taken with a cold forceps from the entire colon for evaluation of microscopic colitis. Verification of patient identification for the specimen was done by the physician. Estimated blood loss was minimal. The terminal ileum appeared normal. Biopsies were taken with a cold forceps for histology. Verification of patient identification for the specimen was done. Estimated blood loss was minimal. Impression: - The entire examined colon is normal. Biopsied. - The examined portion of the ileum was normal. Biopsied. Recommendation: - Discharge patient to home. - Resume previous diet. - Continue present medications. - Await pathology results. - No repeat colonoscopy due to age. Procedure Code(s): --- Professional --- 52565, Colonoscopy, flexible; with biopsy, single or multiple CPT copyright 2017 [employer]. All rights reserved. The codes documented in this report are preliminary and upon certified coder review may be revised to meet current compliance requirements. Alvarado Alfonso DO 01/03/2022 11:05:47 AM This report has been signed electronically. Number of Addenda: 0 Note Initiated On: 01/03/2022 10:40 AM
--- NOTE | 2022-01-03 11:07 | OP.CCLET_ITS ---
01/03/2022 Nasreen Perez [address] [place] [address] Re : Colonoscopy procedure for Francine Sarah Dear Dr. Perez This procedure was performed on Monday, January 03, 2022. My impressions and recommendations are as follows: Impressions : - The entire examined colon is normal. Biopsied. - The examined portion of the ileum was normal. Biopsied. Recommendations : - Discharge patient to home. - Resume previous diet. - Continue present medications. - Await pathology results. - No repeat colonoscopy due to age. My findings are described in the full procedure note, which is enclosed. If I can be of further assistance, please feel free to contact me at . Sincerely, Alvarado Alfonso, 01/03/2022 11:05:47 AM This report has been signed electronically.
[2022-01-03 11:10] VITALS: BP 108/65; BP 118/69; PULSE 76; RESP 16; O2SAT 99
[2022-01-03 11:15] VITALS: BP 115/78; BP 118/69; PULSE 74; RESP 16; TEMP 36.7; O2SAT 100
[2022-01-03 11:36] VITALS: BP 118/69
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
== END 2022-01-03 12:08 | disposition home or self-care (01) ==
LOC: EN 09:09 → AC 09:09
PROVIDERS: Anesthesiology; PCP Family Medicine; Referring Provider Family Medicine; Visit Provider Internal Medicine Gastroenterology
PROC: 0DJD8ZZ Inspection of Lower Intestinal Tract, Via Natural or Artificial Opening Endoscopic (ICD-10-PCS; CPT 45378; principal; 2022-01-03 10:10)
DX: K63.89 Other specified diseases of intestine (principal); K29.50 Unspecified chronic gastritis without bleeding; K31.89 Other diseases of stomach and duodenum
CPT/HCPCS: 45380; 43239; 84703; 88305; 88313; 88341; 88342; J7120; J2405

== ENCOUNTER 2022-01-31 15:30 | Outpatient (RCR) | payer OTHER, SELFPAY ==
--- NOTE | 2022-01-31 15:58 | HP.PTDCSUM ---
It has been my pleasure to treat GLADYS BARBA referred by RUY AWAD, with the diagnosis of for a total of 37 visit(s). Discharge Date: 01/31/22 Please see the following information for a summary of their discharge status. Subjective: Pt feels good to try to progress the running and TM. She got iron infusions and she felt that did a huge difference. She can not absorb iron because she has pre cancerous issues on the part where she absorbs iron. She found a lot of studies with low iron and pots. She walk/ran a 5K and only paid 2 days for it. She wants to continue with walking and get out of the water for awhile. % Improvement: 90 Objective/Function: Opted to reduce routine d/t exacerbated symptoms after last AT visit. All of appt spent at ~50% WBing, however, resting between sets with only ~10% WBing. HR taken about every 3-6 sets of x1 min bouts of tasks. Ed. on building endurance as able. Highest HR reported at ~122 BPM, which is within healthy ranges. In general, making progress with less HR elevations into symptoms. No c/o's symptoms with today's tasks other than being SOB. Goal 1:: I HEP Goal Progress: Goal Met Goal 2:: I transition to land Goal Progress: Goal Met Goal 3:: Pt can exercise cardio on land more than 5 min prior to getting sx. Goal Progress: Goal Met Goal 4:: Be able to go up and down stairs recip with no rails.. Goal Progress: Goal Met Plan: DC PT to HEP Discharge Comments: DC PT to I gym routine If there are questions or concerns regarding this patient's physical therapy, please feel free to call me at [phone]. Thank you for the referral of this patient. Sincerely, Pat Mann, MPT Balance/Gait/Functional tests - Balance/Special Test Scores Lower Extremity Functional Score: 76
== END 2022-01-31 19:00 | disposition home or self-care (01) ==
LOC: PT 15:30
PROVIDERS: PCP Family Medicine
DX: M25.50 Pain in unspecified joint (principal)
CPT/HCPCS: 97113; 97530

== ENCOUNTER 2022-02-02 11:48 | Outpatient (CLI) | payer OTHER, SELFPAY ==
[2022-02-07 17:07] LABS: Beef <0.10 kU/L (Class 0); Corn <0.10 kU/L (Class 0); Egg, Whole <0.10 kU/L (Class 0); Milk (Cow) <0.10 kU/L (Class 0); Peanut <0.10 kU/L (Class 0); Pork <0.10 kU/L (Class 0); Soybean <0.10 kU/L (Class 0); Wheat <0.10 kU/L (Class 0)
[2022-02-08 15:08] LABS: Chocolate <0.10 kU/L (Class 0)
== END 2022-02-02 23:59 | disposition home or self-care (01) ==
LOC: LAB 11:50
PROVIDERS: PCP Family Medicine; Visit Provider Internal Medicine Gastroenterology
DX: K91.1 Postgastric surgery syndromes (principal)
CPT/HCPCS: 36415; 86003; 86005

== ENCOUNTER → 2023-07-22 | Outpatient (CLI) | payer OTHER, SELFPAY ==
[2023-07-22 11:25] LABS: Cholesterol 183 mg/dL (200); High Density Lipoprotein 60 mg/dL; Triglycerides 55 mg/dL; Very Low Density Lipoprotein 11 mg/dL (5-40)
== END | disposition home or self-care (01) ==
PROVIDERS: PCP Internal Medicine; Referring Provider Internal Medicine; Visit Provider Internal Medicine
DX: Z13.220 Encounter for screening for lipoid disorders (principal)
CPT/HCPCS: 36415; 80061

== ENCOUNTER 2024-03-04 09:00 | Outpatient (RCR) | payer OTHER, SELFPAY ==
--- NOTE | 2024-01-29 15:55 | HP.PTEVAL ---
Patient's Visit Information Visit Information Visit Information: GLADYS BARBA is a 24 year old F referred to Physical Therapy by Dr. Sarah Ponce DO with a diagnosis of BPV. Date of Evaluation: 01/29/24 Physical Therapist: Jim Mcdaniels, BELLET, OCS, CSCS Visit Plan Frequency: 1-2x /Week Duration: 4-6 Weeks Plan: 1-2x/week for 4-6 weeks as needed for: IE treated with L ted adn HEP of VOR 30 sec seated H progressing to 60 seconds as able adn 6x/day , also acrtivity modifcaiton to minimize symptoms with head movement, visual environment and focus. Treat with monitor positional L for further treatment or BD, progression of VOR(4/10 30 sec H today) and monitor balance Subjective Subjective: Had pneumonia a month ago. Got ear pressure and dizzyness. Put on antibiotic which helps but dizzyness persists. Not infected in ears. Doctor thinks it is positional. I have POTS also. In the last week gets spinning if she turns too fast or changes head position. Bending can cause it, has not had it in bed. Sleeping is not an issue. 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 Basic ADLs all I but has to stop if gets dizzy. Gets dizzy 10 x /day. Anything superphysical is avoiding, Hesitant to go on walks due to temperature changes. Balance is not an issue. Objective Objective: Walks into PT I, chair transfer I. steps reciprocal without rail balance is good but dizzyness with head turns L>R Good cervical and UE AROM without pain. Sensation UE WNL to gross light touch. B HD are - but asymmetrical L sided dizzyness. - roll test. Treated with L ted today and not immediately improved HD. Oculomotor: no nystagmus with head shake or gaze. - skew eye deviation - ocular tilt - head thrust(but dizzy R) Pursuit is normal Saccades create light dizzyness. VOR H 30 sec gives 4/10 dizzyness for 45 seconds and dizzyness within 3 seconds and is worst thing today. Balance/Special Test Scores Functional Gait Assessment Score: 27 % Disability: 10.0000 Dizziness Score: 26 Goals Goal 1:: Move head side to side without dizzyness Goal Time Frame: 4-6 Weeks Goal 2:: 3030 FGA Goal Time Frame: 4-6 Weeks Goal 3:: Pt feel dizzyness 99% improved and I management. Goal Time Frame: 4-6 Weeks Goal 4:: DHI score 4 or better Goal Time Frame: 4-6 Weeks Rehabilitation Potential Physical Therapy Diagnosis: dizzyness with head movements. Rehabilitation Potential: Good Anticipated Interventions Patient/Client Instruction: Educate patient on: Condition and Plan of Care For the Purpose of:: To increase tolerance to activity/condition/position, To improve gait and locomotor functions and To improve safety with gait Comment: adaptation adn positional ex For the Purpose of:: To increase tolerance to activity/condition/position Text: Thank you for the opportunity to evaluate your patient. For Medicare and Medicare HMO plans, please review the plan of care and approve it. It will need to be FAXED BACK to us at [phone] for Medicare purposes. For Medicare only, by signing this I certify the plan of care. Please let me know if there are questions or concerns regarding this plan of care. Physician Signature: Date:
--- NOTE | 2024-03-04 09:13 | HP.PTDCSUM ---
Discharge Summary D/C summary: It has been my pleasure to treat GLADYS BARBA referred by Dr. Sarah Ponce DO, with the diagnosis of BPV for a total of 5 visit(s). Discharge Date: 03/04/24 Please see the following information for a summary of their discharge status. Subjective Subjective: No real dizzyness in the last 2 weeks, maybe one time at school. Activities ar epretty normal including school parties. Walking without difficulty. Balance feels normal. eye doctor visit went well Overall Improvement % Improvement: 100 Objective Objective/Function: Walking VOR, vor x 2 and head movements, bend and recover, 360 turns all without LOB or dizzyness today Goals Goal 1:: Move head side to side without dizzyness Goal Progress: Goal Met Goal 2:: FGA Goal Progress: Goal Met Goal 3:: Pt feel dizzyness 99% improved and I management. Goal Progress: Goal Met Goal 4:: DHI score 4 or better Goal Progress: 6, muvh improved. Plan Plan: d/c D/C Information d/c sentence: If there are questions or concerns regarding this patient's physical therapy, please feel free to call me at [phone]. Thank you for the referral of this patient. Sincerely, Jim Mcdaniels, DPT, OCS, CSCS Balance/Gait/Functional tests Balance/Special Test Scores Functional Gait Assessment Score: 30 % Disability: 0 Dizziness Score: 6 Improvement % Improvement: 100
== END 2024-03-04 19:00 | disposition home or self-care (01) ==
LOC: PT 09:00
PROVIDERS: PCP Internal Medicine; Referring Provider Internal Medicine; Visit Provider Internal Medicine
DX: H81.10 Benign paroxysmal vertigo, unspecified ear (principal)
CPT/HCPCS: 97530

== ENCOUNTER → 2024-04-29 | Outpatient (CLI) | payer OTHER, SELFPAY ==
[2024-05-03 17:08] LABS: Albumin 3.9 g/dL (2.9-4.4); Alpha-1-Globulins 0.3 g/dL (0.0-0.4); Alpha-2-Globulins 0.9 g/dL (0.4-1.0); Anti-Parietal Cell AB, QN 41.4 Units (0.0-20.0); Gamma Globulin 1.4 g/dL (0.4-1.8); Gastrin, Serum 17 pg/mL (0-115); Immunoglobulin A 184 mg/dL (87-352); Immunoglobulin E 34 IU/mL (6-495); Immunoglobulin G 1438 mg/dL (586-1602); Immunoglobulin M 168 mg/dL (26-217); PROEL- TOTAL PROTEIN 7.5 g/dL (6.0-8.5)
[2024-05-04 17:07] LABS: Alternaria alternata <0.10 kU/L (Class 0); Beef <0.10 kU/L (Class 0); Bermuda Grass <0.10 kU/L (Class 0); Bluegrass, Kentucky <0.10 kU/L (Class 0); Cat Hair/Dander, Standard <0.10 kU/L (Class 0); Chocolate <0.10 kU/L (Class 0); Codfish 0.11 kU/L (Class 0/I); Corn <0.10 kU/L (Class 0); D farinae Mite <0.10 kU/L (Class 0); D pteronyssinus <0.10 kU/L (Class 0); Dog Epithelia <0.10 kU/L (Class 0); Egg, Whole <0.10 kU/L (Class 0); Elm, American White <0.10 kU/L (Class 0); Milk (Cow) <0.10 kU/L (Class 0); Mouse Urine <0.10 kU/L (Class 0); Mussels <0.10 kU/L (Class 0); Oak, White <0.10 kU/L (Class 0); Peanut <0.10 kU/L (Class 0); Plantain, English <0.10 kU/L (Class 0); Pork <0.10 kU/L (Class 0); Ragweed, Short/Common <0.10 kU/L (Class 0); Salmon <0.10 kU/L (Class 0); Shrimp 0.16 kU/L (Class 0/I); Soybean <0.10 kU/L (Class 0); Tuna <0.10 kU/L (Class 0); Wheat <0.10 kU/L (Class 0)
== END | disposition home or self-care (01) ==
PROVIDERS: PCP Internal Medicine; Referring Provider Internal Medicine Gastroenterology; Visit Provider Internal Medicine Gastroenterology
DX: K31.A0 Gastric intestinal metaplasia, unspecified (principal); K91.1 Postgastric surgery syndromes
CPT/HCPCS: 36415; 82784; 82785; 82941; 83516; 84165; 86003; 86005; 86334; 86340

== ENCOUNTER → 2024-05-24 | Outpatient (CLI) | payer OTHER, SELFPAY ==
[2024-05-24 16:06] LABS: Absolute Lymphocyte Count 2.12 X10^3/uL (0.83-4.51); Absolute Neutrophil Count 3.3 X10^3/uL (2.0-7.7); Basophil# 0.04 X10^3/uL; Basophil% 0.7 % (0-1); Eosinophil# 0.11 X10^3/uL; Eosinophils% 1.8 % (0-5); Hematocrit 38.9 % (37-47); Hemoglobin 13.2 g/dL (12.0-15.0); Lymphocyte # 2.12 X10^3/ul (0.83-4.51); Lymphocyte % 35.5 % (19-41); Mean Corp Hgb Conc 33.9 g/dL (32-36); Mean Corpuscular Hgb 28.8 pg (27.0-32.0); Mean Corpuscular Volume 84.7 fL (81-99); Mean Platelet Vol. 9.4 fl (6.2-12.0); Monocyte# 0.41 X10^3/uL; Monocyte% 6.9 % (0-10); NRBC Flagged by Analyzer 0 % (0-5); Neutrophil # 3.28 X10^3/uL (2.7-7.7); Neutrophil % 54.8 % (47-70); Platelet Count 357 K/mm3 (150-450); RBC Distribution Width CV 13.5 % (11.6-14.6); RBC Distribution Width SD 41.6 fl (35.1-43.9); RET-HE 34.3 pg (30-35); Red Blood Count 4.59 M/mm3 (4.2-5.4); Reticulocyte Count 1.15 % (0.5-1.5)
[2024-05-24 16:23] LABS: QC Malaria Lot#/Exp Date RECORD LOT#/EXP DATE
[2024-05-24 17:16] LABS: Erythrocyte Sedimentation Rate 1 mm/hr (0-30)
[2024-05-24 18:57] LABS: ALB/GLOB Ratio 1.6 RATIO (0.9-2.4); AST(SGOT) 19 U/L (<=31); Alanine Aminotransfer ALT/SGPT 18 U/L (<=34); Albumin, Serum 4.5 g/dL (3.5-5.0); Alkaline Phosphatase 62 U/L (35-104); Anion Gap 12 (5-15); BUN 6 mg/dL (4-19); BUN/Creat Ratio 9.6 RATIO (10-20); Calcium,Total 9.3 mg/dL (7.6-11.0); Carbon Dioxide 24.3 mmol/L (21.0-32.0); Chloride 102 mmol/L (98-108); Creatinine, Serum 0.61 mg/dL (0.70-1.20); EST Glomerular Filtration Rate 127 (>60); Globulin 2.8 g/dL (2.2-4.2); Glucose 78 mg/dL (70-99); Potassium 3.6 mmol/L (3.3-5.1); Protein, Total 7.3 g/dL (5.9-8.4); Sodium Level 138 mmol/L (133-145); Total Bilirubin 0.23 mg/dL (0.00-1.30)
[2024-05-24 20:30] LABS: CRP < 3.00 mg/L (0.0-3.0); LDH 151 U/L (84-246)
[2024-05-28 16:09] LABS: Albumin 3.9 g/dL (2.9-4.4); Alpha-1-Globulins 0.2 g/dL (0.0-0.4); Alpha-2-Globulins 0.7 g/dL (0.4-1.0); Gamma Globulin 1.2 g/dL (0.4-1.8); HEPATITIS B SURFACE AG Negative (Negative); Hep C Antibodies Non Reactive (Non Reactive); Hepatitis A IgM Antibody Negative (Negative); Hepatitis B Core AB IgM Negative (Negative); Immunoglobulin A 155 mg/dL (87-352); Immunoglobulin G 1281 mg/dL (586-1602); Immunoglobulin M 149 mg/dL (26-217); PROEL- TOTAL PROTEIN 6.9 g/dL (6.0-8.5)
[2024-05-29 12:08] LABS: H. PYLORI STOOL AG Negative (Negative)
[2024-05-29 12:54] LABS: Malaria QC Review REV
[2024-05-29 12:57] LABS: Malaria Blood Parasite Interp Screen **POSITIVE** (Negative)
== END | disposition home or self-care (01) ==
PROVIDERS: PCP Internal Medicine; Referring Provider Internal Medicine Gastroenterology; Visit Provider Internal Medicine Gastroenterology
DX: K58.9 Irritable bowel syndrome, unspecified (principal); R10.9 Unspecified abdominal pain
CPT/HCPCS: 36415; 80053; 80074; 82784; 83615; 84165; 85025; 85045; 85652; 86140; 86334; 87177; 87207; 87209; 87329; 87338; 87506

== ENCOUNTER 2024-06-05 15:35 | Outpatient (CLI) | payer OTHER, SELFPAY ==
[2024-06-05 16:40] LABS: Absolute Lymphocyte Count 1.54 X10^3/uL (0.83-4.51); Absolute Neutrophil Count 3.5 X10^3/uL (2.0-7.7); Basophil# 0.04 X10^3/uL; Basophil% 0.7 % (0-1); Eosinophil# 0.11 X10^3/uL; Eosinophils% 1.9 % (0-5); Hemoglobin 13.8 g/dL (12.0-15.0); Lymphocyte # 1.54 X10^3/ul (0.83-4.51); Lymphocyte % 26.7 % (19-41); Mean Corp Hgb Conc 33.7 g/dL (32-36); Mean Corpuscular Hgb 28.2 pg (27.0-32.0); Mean Corpuscular Volume 83.7 fL (81-99); Mean Platelet Vol. 9.4 fl (6.2-12.0); Monocyte# 0.48 X10^3/uL; Monocyte% 8.3 % (0-10); NRBC Flagged by Analyzer 0 % (0-5); Neutrophil # 3.54 X10^3/uL (2.7-7.7); Neutrophil % 61.4 % (47-70); Platelet Count 347 K/mm3 (150-450); RBC Distribution Width CV 13.2 % (11.6-14.6); White Blood Count 5.8 K/mm3 (4.4-11.0)
[2024-06-06 14:13] LABS: QC Malaria Lot#/Exp Date RECORD LOT#/EXP DATE
== END 2024-06-05 23:59 | disposition home or self-care (01) ==
LOC: LAB 15:36
PROVIDERS: PCP Internal Medicine; Referring Provider Internal Medicine Infectious Disease; Visit Provider Internal Medicine Infectious Disease
DX: B54 Unspecified malaria (principal)
CPT/HCPCS: 36415; 85025; 87207

== ENCOUNTER → 2024-06-25 | Outpatient (CLI) | payer OTHER, SELFPAY | END | disposition home or self-care (01) | LOC: LAB 08:54 | PROVIDERS: PCP Internal Medicine; Referring Provider Internal Medicine Infectious Disease; Visit Provider Internal Medicine Infectious Disease | DX: B54 Unspecified malaria (principal) | CPT/HCPCS: 36415 ==

== ENCOUNTER 2024-07-05 15:30 | Outpatient (RCR) | payer OTHER, SELFPAY ==
--- NOTE | 2024-10-16 11:11 | HP.PTEVAL_ITS ---
Patient's Visit Information Visit Information Visit Information: GLADYS BARBA is a 24 year old F referred to Physical Therapy by NORA LUNDBERG with a diagnosis of Cubital tunnel release with elbow stiffness. Date of Evaluation: 06/20/24 Physical Therapist: Fuad Fish DPT Visit Plan Frequency: 1x/Week Duration: 4 Weeks Plan: passive L elbow ROM, progress to end range self stretching. May add in joint mobs of elbow if needed. Subjective Subjective: Pt. is here today for her initial evaluation with diagnosis of post op cubital tunnel release with subsequent elbow stiffness. Pt. was in a splint after surgery and is now having some difficulty with increased elbow flexion. Pt. reports having increased pain limiting her with increasing her ROM. Pt. has not una using her L arm for much due to the stiffness. She is able to complete daily activities though. Pt. reports no pain at rest. No N/T, but does have pain with attempting to for end ranges of elbow motion. Pt. is sleeping well. She is hopeful to imrpove her ROM to allow for increased ability to complete all activities. Pain L elbow: Pain Intensity (Out of 10): 1 Pain Intensity Range: 0 and 2 Objective Objective: POSTURE: Pt. has L elbow in slight flex posture in all positions. The rest of posture is normal. PALPATION: pt. has slight tenderness at medial elbow with palpation. NEURO: normal. ROM: L elbow: 0-10-98deg. Pt. has tightness and pain limited end ranges of motion. MMT: shoulder and wrist 5/5. Did not test elbow, but able to move against gravity well. Balance/Special Test Scores Quick DASH Score: 25.0000 Goals Goal 1:: LTG: Pt. to be I with HEP. Goal Time Frame: 2-4 Weeks Goal 2:: STG: Pt. to have full L elbow extension. Goal Time Frame: 2 Weeks Goal 3:: STG: Pt. to have increased L elbow flexion to full without increase in L elbow pain. Goal Time Frame: 2-4 Weeks Goal 4:: LTG: Pt. to complete all activities at home without increase in L elbow pain. Rehabilitation Potential Physical Therapy Diagnosis: Pt. has signs and symptoms consistent with Cubital tunnel release with elbow stiffness. Pt. has marked hypombility and would benefit from PT to address the above limitations. Rehabilitation Potential: Excellent Anticipated Interventions Patient/Client Instruction: Educate patient on: Condition, Plan of Care, Risk Factors and Benefits of Fitness Program For the Purpose of:: To facilitate caregiver knowledge, To improve self management, To prevent re-injury and To improve ability to perform tasks related to life management Therapeutic Exercise to Include: Flexibilty training, Passive ROM and Active ROM For the Purpose of:: To decrease pain and To increase ROM Manual Therapy Techniques to Include: Mobilization and Passive ROM For the Purpose of:: To decrease pain and To increase ROM Text: Thank you for the opportunity to evaluate your patient. For Medicare and Medicare HMO plans, please review the plan of care and approve it. It will need to be FAXED BACK to us at [phone] for Medicare purposes. For Medicare only, by signing this I certify the plan of care. Please let me know if there are questions or concerns regarding this plan of care. Physician Signature: Da te:
--- NOTE | 2024-10-16 11:17 | HP.PT.NRP ---
Patient Information Patient Information: GLADYS BARBA was seen in my office for initial evaluation on 06/20/24. The following Plan of Care was established for this patient: POC Established Initial Frequency: 1x/Week Initial Duration: 4 Weeks Anticipated Interventions Patient/Client Instruction: Educate patient on: Condition, Plan of Care, Risk Factors and Benefits of Fitness Program For the Purpose of:: To facilitate caregiver knowledge, To improve self management, To prevent re-injury and To improve ability to perform tasks related to life management Therapeutic Exercise to Include: Flexibilty training, Passive ROM and Active ROM For the Purpose of:: To decrease pain and To increase ROM Manual Therapy Techniques to Include: Mobilization and Passive ROM For the Purpose of:: To decrease pain and To increase ROM Last Seen Last Seen: This patient was last seen in our office 07/05/24. Pertinent comments regarding their Physical therapy will appear below: Pt. has seen in Pt for her L elbow hypomobility. Pt. was doing much better at her last visit. She was going to continue HEP on her own and call back if needed. Pt. has not been seen in several months and will be DC from PT at this point in time. At this point I will be discontinuing this patient from physical therapy. I would be happy to see this patient again in the future if found appropriate by the physician. Thank you! Fuad Fish, BELLET Balance/Gait/Functional tests Balance/Special Test Scores Quick DASH Score: 25.0000
== END 2024-07-05 19:00 | disposition home or self-care (01) ==
LOC: PT 15:30
PROVIDERS: PCP Internal Medicine
DX: Z98.890 Other specified postprocedural states (principal)
CPT/HCPCS: 97140; 97161

== ENCOUNTER 2024-11-16 20:47 | Emergency (ER) | payer OTHER, SELFPAY ==
[2024-11-16 20:48] VITALS: BP 116/75; PULSE 93; RESP 16; TEMP 36; O2SAT 99; BMI 23.4
--- OUTSIDE RECORDS SUMMARY | 2024-11-16 21:56 | XMS RPT_ITS | CCD ---
Author Organization [facility] Care Team Providers Care Ampoule Sealer Name Role Phone Javan CIRCUIT COURT CLERK, Elaine N Unavailable Unavailab le Javan CIRCUIT COURT CLERK, Elaine N Unavailable Unavailab le Javan CIRCUIT COURT CLERK, Elaine N Unavailable Unavailab le Javan CIRCUIT COURT CLERK, Elaine N Unavailable Unavailab le GILBERTO MARQUES Unavailable Unavailable REFERRED, SELF Unavailable Unavailable DUY, VONDA A Unavailable Unavailable GILBERTO MARQUES Unavailable Unavailable REFERRED, SELF Unavailable Unavailable DUY, VONDA A Unavailable Unavailable ROD LIEBERMAN Unavailable Unavailable REFERRED, SELF Unavailable Unavailable DUY, VONDA A Unavailable Unavailable WYNESKI, SAV Unavailable Unavailable DUY, VONDA A Unavailable Unavailable DUY, VONDA A Unavailable Unavailable WYNESKI, SAV Unavailable Unavailable WYNESKI, SAV Unavailable Unavailable DUY, VONDA A Unavailable Unavailable DUY, VONDA A Unavailable Unavailable RICKEY SAMPSON Unavailable Unavailable WYNESKI, SAV Unavailable Unavailable DUY, VONDA A Unavailable Unavailable JONATHAN ESQUEDA Unavailable Unavailable WYNESKI, SAV Unavailable Unavailable WYNESKI, SAV Unavailable Unavailable DUY, VONDA A Unavailable Unavailable WYNESKI, SAV Unavailable Unavailable WYNESKI, SAV Unavailable Unavailable DUY, VONDA A Unavailable Unavailable REFERRED, SELF Unavailable Unavailable DUY, VONDA A Unavailable Unavailable DUY, VONDA A Unavailable Unavailable Cogar CIRCUIT COURT CLERK, Catalina N Unavailable Dr. Nasreen Perez S Primary Care Provider [phone] Dr. Himanshu Urban Attending Provider Dr. Nasreen Perez S Primary Care Provider Dr. Nasreen Perez S Referring Provider Friend, Dr. Childers Attending Provider ROYCE PAGAN, DR BARRAZA Primary Care Physician [phone] JANICE POOL Referring Unavailable NASREEN PEREZ Primary Care Unavailable MICHAEL, SARAH TURPIN Primary Care Unavailab le KWIECIEN, RAGHU Admitting Unavailable KWIECIEN, RAGHU Attending Unavailable MICHAEL, SARAH TURPIN Primary Care Unavailab le Michael DO, Dr. Smith Primary Care Provider Michael DO, Dr. Smith Attending Provider [phone] Michael DO, Dr. Smith Referring Provider Friend DO, Dr. Childers Attending Provider Friend DO, Dr. Childers Referring Provider Meche PAGAN, Dr. Buchanan Attending Provider Dr. Dewayne Mcgregor MD Referring Provider [phone] AGUSTIN LUNDBERG Attending Provider AGUSTIN LUNDBERG Referring Provider RAGHU DONG Attending Unavailable MICHAEL, SARAH TURPIN Primary Care Unavailab le KWIECIENRAGHU Attending Unavailable MICHAELSARAH Primary Care Unavailab le KWIECIENRAGHU Attending Unavailable MICHAEL, SARAH TURPIN Primary Care Unavailab le MICHAEL, SARAH TURPIN Primary Care Unavailab le CHEUVRONTANNIE Attending Unavailabl e SELF Referring Unavailable KWIECIENRAGHU Attending Unavailable SELF Referring Unavailable MICHAEL, SARAH TURPIN Primary Care Unavailab le AGUSTIN LUNDBERG Attending Unavailable SELF Referring Unavailable MICHAEL, SARAH TURPIN Primary Care Unavailab le MICHAEL, SARAH TURPIN Primary Care Unavailab le HAKOARMANI Pablo Referring Unavailable MICHAELSARAH Primary Care Unavailab le SEMPLEBUCK Referring Unavailable MICHAEL, SARAH TURPIN Primary Care Unavailab le SEMPLEBUCK Attending Unavailable MICHAEL, ASRAH TURPIN Primary Care Unavailab le HAKOARMANI Pablo E Attending Unavailable MICHAEL, SARAH TURPIN Primary [facility] Unavailab ARMANI Norwood Attending Unavailable MICHAEL, SARAH TURPIN Primary Care Unavailab ARMANI [place] Referring Unavailable MICHAEL, SARAH TURPIN Primary Care Unavailab ARMANI [place] Referring Unavailable MICHAEL, SARAH TURPIN Primary Care Unavailab le KAVON, YENI Attending Unavailable MICHAEL, SARAH TURPIN Primary Care Unavailab ARMANI [place] Referring Unavailable MICHAEL, SARAH TURPIN Primary Care Unavailab le SELF Referring Unavailable AGUSTIN LUNDBERG Attending Unavailable MICHAEL, SARAH TURPIN Primary Care Unavailab le CHEUVRONTANNIE Referring Unavailabl e ANNIE LEMA Attending Unavailabl e MICHAEL, SARAH TURPIN Primary [facility] Unavailab ARMANI [place]wood Referring Unavailable ARMANI TRIMBLE Attending Unavailable MICHAEL, SARAH TURPIN Primary Care Unavailab ARMANI [place] Referring Unavailable MICHAEL, SARAH TURPIN Primary Care Unavailab RAGHU Bee Attending Unavailable MICHAEL, SARAH TURPIN Primary Care Unavailab ARMANI [place]wood Referring Unavailable MICHAEL, SARAH TURPIN Primary Care Unavailab ARMANI [place]wood Referring Unavailable MICHAEL, SARAH TURPIN Primary Care Unavailab ARMANI [place] Referring Unavailable ARMANI TRIMBLE Attending Unavailable MICHAEL, SARAH TURPIN Primary Care Unavailab ARMANI [place]wood Referring Unavailable MICHAEL, SARAH TURPIN Primary [facility] Unavailab le JAMIA LAND Referring Unavailable MICHAEL, SARAH TURPIN Primary Care Unavailab le LOYDA, BUCK Referring Unavailable MICHAEL, SARAH TURPIN Primary Care Unavailab le MICHAEL, SARAH TURPIN Primary Care Unavailab LEORA Hanna Referring Unavailable MICHAEL, SARAH TURPIN Primary Care Unavailab le ANDRAPALLIYAL, TOÑITO Attending Unavailabl e SARAH RODRIGUEZ Primary [facility] Unavailab RAGHU Bee Referring Unavailable MICHAEL, SARAH TURPIN Primary Care Unavailab ARMANI [place]wood Referring Unavailable Michael , Dr. Smith Primary Care Provider [phone] Dr. Sarah Rodriguez DO Referring Provider AGUSTIN LUNDBERG Attending Provider [phone] AGUSTIN LUNDBERG Referring Provider Michael GARCIA, Dr. Smith Primary Care Provider Meche PAGAN, Dr. Buchanan Attending Provider Dr. Dewayne Mcgregor MD Referring Provider Dr. Sarah Rodriguez DO Referring Provider Friend DO, Dr. Childers Attending Provider Michael, Sarah Referring Unavailable Friend, Alvarado Attending Unavailable Michael, Sarah Primary Care Unavailable Michael, Sarah Referring Unavailable Michael, Sarah Primary Care Unavailable Friend, Alvarado Attending Unavailable Michael, Sarah Primary Care Unavailable Dewayne Mcgregor Attending Unavailable Dewayne Mcgregor Referring Unavailable Michael, Sarah Primary Care Unavailable Friend, Alvarado Attending Unavailable Friend, Alvarado Referring Unavailable Michael, Sarah Primary Care Unavailable Friend, Alvarado Attending Unavailable Friend, Alvarado Referring Unavailable Friend, Alvarado Attending Unavailable Michael, Sarah Primary Care Unavailable Michael, Sarah Referring Unavailable Michael, Sarah Primary Care Unavailable Michael, Sarah Attending Unavailable Michael, Sarah Primary Care Unavailable Dewayne Mcgregor Attending Unavailable Dewayne Mcgregor Referring Unavailable JOHANA MURPHY Attending Unavailable JOHANA MURPHY Referring Unavailable Michael, Sarah Primary Care Unavailable Allergies Allergy Classification Reported Allergen(s) Allergy Type Date of Onset Reaction(s) Facility (1 source) Adhesive Tape; Translations: [TAPE ALLERGY] Propensity to adverse reactions (disorder) 4 [facility] Repository (12 sources) metoclopramide; Translations: [METOCLOPRAMIDE] Drug Allergy 4 [facility], Other [facility] Repository Comment on above: I HAVE A PANIC DESIREE CK (10 sources) Adhesive agent; Translations: [adhesive] Allergy to substance 1 [facility] (15 sources) Metoclopramide; Translations: [METOCLOPRAMIDE HCL] Drug Allergy 5 Other [facility] Repository (14 sources) Wheat gluten extract; Translations: [GLUTEN] Drug Allergy 8 [facility] Repository (2 sources) DOXYCYLCLINE Allergy to substance 2 [facility] Work Phone: (5 sources) Adhesive Tape; Translations: [ADHESIVE TAPE (ROSINS)] Propensity to adverse reactions (disorder) 6 [facility] Repository (11 sources) Doxycycline; Translations: [DOXYCYCLINE] Drug Allergy 1 Other [facility] Repository Comment on above: Full body yeast infe ction (5 sources) Mold Extract; Translations: [MOLD] Drug Allergy 9 [facility] Repository (2 sources) Cod liver oil; Translations: [COD LIVER OIL] Propensity to adverse reactions to drug (disorder) 5 [facility] Repository (2 sources) Shrimp product; Translations: [SHRIMP] Propensity to adverse reactions to drug (disorder) 5 [facility] Repository (1 source) Gluten Drug allergy (disorder) 5 [facility] Repository Medications Current Medications Medication Drug Class(es) Dates Sig (Normalized) Sig (Original) baclofen 10 mg oral tablet (1 source) gamma-Aminobutyric Acid-ergic Agonist Start: 04-09-2019 take 1 tablet by mouth three times daily for muscle spasms baclofen 10 mg oral tablet take 1 tablet by mouth three times a day if needed for muscle spasm Start Date: 04/09/19 Status: Ordered ibuprofen 400 mg oral tablet (1 source) Nonsteroidal Anti-inflammatory Drug Start: 04-09-2019 take 1 dose by mouth every six hours Motrin Dose : 400 mg =, Oral, q6hr Start Date: 04/09/19 Status: Ordered LORazepam 1 mg oral tablet (1 source) Benzodiazepine Start: 10-21-2021 End: 10-24-2021 Ativan 1 mg oral tablet Dose : 1 mg = 1 tab(s), Oral, TID, PRN as needed for anxiety, X 3 day(s), # 9 tab(s), 0 Refill(s), 10/24/21 1:22:00 EDT, Unresponsive, 59.6 Start Date: 10/21/21 Stop Date: 10/24/21 Status: Ordered magnesium glycinate 100 mg oral tablet (9 sources) Start: 04-24-2017 take 1 tablet by mouth once daily Magnesium Glycinate 100 mg tablet Active 100 mg PO daily April 24, 2017 1:00am spironolactone 100 mg oral tablet (1 source) Aldosterone Antagonist Start: 04-09-2019 take 1 tablet by mouth once daily in the evening spironolactone 100 mg oral tablet take 1 tablet by mouth every evening Start Date: 04/09/19 Status: Ordered Completed/Discontinued Medications Medication Drug Class(es) Dates Sig (Normalized) Sig (Original) Drospirenone-Ethin yl Estradiol (13 sources) Progestin, Estrogen Start: 12-30-2021 End: 04-29-2024 take 3 tablets by mouth once daily Drospirenone-Ethiny l Estradiol (Vestura (28)) 3-0.02 mg tablet Discontinued 1 {tbl} PO DAILY December 30, 2021 12:00am April 29, 2024 4:46pm Start: 12-30-2021 Drospirenone-E thinyl Estradiol (Vestura (28)) 3-0.02 mg tablet Active 1 TABLET PO DAILY December 30, 2021 12:00am Start: 04-09-2019 take 1 tablet by ariel th once daily drospirenone-ethinyl estradiol 3 mg-0.02 mg oral tablet take 1 tablet by mouth daily Start Date: 04/09/19 Status: Ordered Start: 08-15-2016 DROSPIRENONE-E THINYL ESTRADIOL TABS as directed DROSPIRENONE-ETHINYL ESTRADIOL TABS [id number] Elaine Edouard LPN magnesium (5 sources) Start: 08-15-2016 MAGNESIUM CAPS as directed MAGNESIUM OXIDE CAPS [id number] Elaine Edouard LPN medroxyPROGESTERone acetate 10 mg oral tablet (9 sources) Progestin Start: 01-22-2021 End: 01-28-2021 take 1 tablet by mouth once daily Medroxyprogesterone 10 mg Tablet Discontinued 10 mg PO DAILY January 22, 2021 1:00am January 28, 2021 11:51am melatonin 5 mg oral capsule (14 sources) Start: 04-24-2017 End: 04-29-2024 take 1 capsule by mouth at bedtime Melatonin 5 mg capsule Discontinued 5 mg PO AT BEDTIME 0 April 24, 2017 1:00am April 29, 2024 4:46pm Start: 08-15-2016 MELATONIN TABS as directed MELATONIN TABS [id number] Elaine Edouard LPN Mitocore (7 sources) Start: 12-30-2021 End: 04-29-2024 Mitocore Discontinued 1 {tbl } SL/PO DAILY December 30, 2021 12:00am April 29, 2024 4:46pm Start: 12-30-2021 take 1 tablet by mouth once da maryann Mitocore Active 1 TABLET SL/PO DAILY December 30, 2021 12:00am ondansetron 4 mg oral tablet (20 sources) Serotonin-3 Receptor Antagonist Start: 01-22-2021 End: 08-28-2023 take 1 tablet by mouth every six hours as needed for nausea Ondansetron Hcl 4 mg tablet Discontinued 4 mg PO EVERY 6 HOURS as needed for Nausea 60 3 October 22, 2021 4:58pm August 28, 2023 9:43am predniSONE 20 mg oral tablet (9 sources) Start: 05-06-2017 End: 05-13-2017 take 1 tablet by mouth once daily at mealtime Prednisone 20 mg tablet Discontinued 20 mg PO .COMPLEX 10 7 0 May 06, 2017 1:00am May 12, 2017 1:00am May 13, 2017 1:07am 20 mg PO 2 pills daily x 3 days, then 1 pill daily x 4 days; administer with food or milk PROBIOTIC PRODUCT (4 sources) Start: 08-15-2016 PROBIOTIC CAPS as directed PROBIOTIC PRODUCT [id number] Elaine Edouard LPN PROBIOTIC PRODUCT (1 source) Start: 08-15-2016 PROBIOTIC CAPS as directed PROBIOTIC PRODUCT [id number] Elaine Edouard LPN Problems Active Problems Problem Classification Problem Date Documented Da te Episodic/Chronic Anxiety disorders (1 source) Anxiety disorder, unspecified; Translations: [Anxiety] Onset: 1 Chronic Asthma (2 sources) Mild intermittent asthma, uncomplicated; Translations: [Intermittent asthma without complication, unspecified asthma severity] Onset: 2 Chronic Coma; stupor; and brain damage (1 source) Coma; Translations: [Unspecified coma] Onset: 2 Episodic Conditions associated with dizziness or vertigo (5 sources) Dizziness; Translations: [Dizziness and giddiness] Onset: 7 08-15-2016 Episodic Deficiency and other anemia (1 source) Anemia, unspecified; Translations: [Anemia, unspecified type] Onset: 5 Episodic Esophageal disorders (2 sources) Gastroesophageal reflux disease; Translations: [Gastro-esophageal reflux disease without esophagitis] 08-27-2024 Chronic Esophageal disorders (1 source) Esophageal disorders; Translations: [Gastroesophageal reflux disease with esophagitis without hemorrhage] Onset: 3 Gastritis and duodenitis (3 sources) Chronic atrophic gastritis without bleeding; Translations: [Atrophic gastritis] Onset: 5 08-27-2024 Chronic Immunizations and screening for infectious disease (5 sources) Patient encounter status; Translations: [Encounter for screening for COVID-19] 01-18-2022 Episodic Intracranial injury (1 source) Concussion without loss of consciousness, initial encounter; Translations: [Concussion without loss of consciousness, initial encounter] Onset: 4 Episodic Joint disorders and dislocations; trauma-related (1 source) Chondromalacia patellae, right knee; Translations: [Chondromalacia of right patella] Onset: 2 Chronic Nausea and vomiting (1 source) Nausea; Translations: [Nausea] Onset: 4 Episodic Nutritional deficiencies (1 source) Vitamin D deficiency, unspecified; Translations: [Vitamin D deficiency] Onset: 5 Chronic Other and unspecified benign neoplasm (3 sources) Carcinoid tumor; Translations: [Benign carcinoid tumor of unspecified site] Episodic Other and unspecified benign neoplasm (5 sources) Benign carcinoid tumor of unspecified site; Translations: [Carcinoid tumor] 10-05-2021 Episodic Other bone disease and musculoskeletal deformities (1 source) Osteochondritis dissecans of unspecified site; Translations: [OCD (osteochondritis dissecans)] Onset: 3 Chronic Other disorders of stomach and duodenum (10 sources) Intestinal metaplasia of gastric mucosa; Translations: [Intestinal metaplasia of stomach] 01-19-2022 Episodic Other gastrointestinal disorders (1 source) Irritable bowel syndrome without diarrhea; Translations: [Irritable bowel syndrome, unspecified] Onset: 5 Chronic Other injuries and conditions due to external causes (1 source) Unspecified injury of head, initial encounter; Translations: [Injury of head, initial encounter] Onset: 4 Episodic Other nervous system disorders (3 sources) Lesion of ulnar nerve, left upper limb; Translations: [Cubital tunnel syndrome, left] Onset: 4 Chronic Other nervous system disorders (1 source) Lesion of ulnar nerve, bilateral upper limbs; Translations: [Cubital tunnel syndrome of both upper extremities] Onset: 4 Chronic Residual codes; unclassified (3 sources) Obstructive sleep apnea (adult) (pediatric); Translations: [MIKAL on CPAP] Onset: 4 Chronic Residual codes; unclassified (2 sources) Other specified postprocedural states; Translations: [Post-operative state] Onset: 5 Episodic Sprains and strains (18 sources) Lower back injury; Translations: [Strain of muscle, fascia and tendon of lower back, initial encounter] 10-21-2018 Episodic Unclassified (1 source) POTS (postural orthostatic tachycardia syndrome); Translations: [POTS (postural orthostatic tachycardia syndrome)] Onset: 2 Unclassified (1 source) Acute cough; Translations: [Acute cough] Onset: 4 Unclassified (1 source) Gastric intestinal metaplasia, unspecified; Translations: [Gastric intestinal metaplasia, unspecified] Onset: 5 Past or Other Problems Problem Classification Problem Date Documented Da te Episodic/Chronic Abdominal pain (20 sources) Abdominal pain; Translations: [Unspecified abdominal pain] Onset: 04-29-2024 Episodic Cardiac dysrhythmias (5 sources) Palpitations; Translations: [Palpitations] Onset: 08-15-2016 08-15-2016 Episodic Complications of surgical procedures or medical care (11 sources) Postgastric surgery syndrome; Translations: [Postgastric surgery syndromes] Onset: 04-29-2024 01-19-2022 Episodic Deficiency and other anemia (1 source) Iron deficiency anemia, unspecified; Translations: [Iron deficiency anemia, unspecified iron deficiency anemia type] Onset: 11-20-2023 Episodic Epilepsy; convulsions (1 source) Unspecified convulsions; Translations: [Seizure-like activity (HCC)] Onset: 01-23-2022 Episodic Neoplasms of unspecified nature or uncertain behavior (1 source) Other mast cell neoplasms of uncertain behavior; Translations: [Mast cell disease] Onset: 10-19-2021 Episodic Nonspecific chest pain (5 sources) Chest pain; Translations: [Chest pain, unspecified] Onset: 08-15-2016 08-15-2016 Episodic Nutritional deficiencies (1 source) Iron deficiency; Translations: [Iron deficiency] Onset: 11-22-2021 Episodic Other connective tissue disease (1 source) Pain in left hand; Translations: [Pain in left hand] Onset: 01-10-2024 Episodic Other infections; including parasitic (1 source) Unspecified malaria; Translations: [Unspecified malaria] Onset: 06-27-2024 Episodic Other nervous system disorders (1 source) Anesthesia of skin; Translations: [Numbness of left hand] Onset: 01-10-2024 Episodic Other nervous system disorders (1 source) Unspecified disturbances of skin sensation; Translations: [Disturbance of skin sensation] Onset: 05-24-2021 Episodic Residual codes; unclassified (1 source) Other specified health status; Translations: [Strict vegetarian diet] Onset: 11-22-2021 Episodic Residual codes; unclassified (1 source) Pain, unspecified; Translations: [Pain] Onset: 12-19-2023 Episodic Spondylosis; intervertebral disc disorders; other back problems (1 source) Spinal stenosis, cervical region; Translations: [Neural foraminal stenosis of cervical spine] Onset: 10-07-2019 Episodic Results Test Name Value Interpretation Reference Range Facility Inital Evaluation (1) - PTon 10-16-2024 Inital Evaluation (1) - PT [facility] Physical Therapy [facility] [place] [address] / REHABILITATION SERVICES INITIAL EVALUATION MR#: [id number] Acct: [id number] Name: GLADYS SARAH Rep #: [id number] : 2000 24 From: Fuad Fish DPT Referring DrEdmund: AGUSTIN LUNDBERG Status: REG R CR Insurance: [facility] SELF PAY INSURANCE Patient's Visit Information Visit Information Visit Information: GLADYS SARAH is a 24 year old F referred to Physical Therapy by AGUSTIN LUNDBERG with a diagnosis of Cubital tunnel release with elbow stiffness. Date of Evaluation: 06/20/24 Physical Therapist: Fuad Fish DPT Visit Plan Frequency: 1x/Week Duration: 4 Weeks Plan: passive L elbow ROM, progress to end range self stretching. May add in joint mobs of elbow if needed. Subjective Subjective: Pt. is here today for her initial evaluation with diagnosis of post op cubital tunnel release with subsequent elbow stiffness. Pt. was in a splint after surgery and is now having some difficulty with increased elbow flexion. Pt. reports having increased pain limiting her with increasing her ROM. Pt. has not una using her L arm for much due to the stiffness. She is able to complete daily activities though. Pt. reports no pain at rest. No N/T, but does have pain with attempting to for end ranges of elbow motion. Pt. is sleeping well. She is hopeful to imrpove her ROM to allow for increased ability to complete all activities. Pain L elbow: Pain Intensity (Out of 10): 1 Pain Intensity Range: 0 and 2 Objective Objective: POSTURE: Pt. has L elbow in slight flex posture in all positions. The rest of posture is normal. PALPATION: pt. has slight tenderness at medial elbow with palpation. NEURO: normal. ROM: L elbow: 0-10-98deg. Pt. has tightness and pain limited end ranges of motion. MMT: shoulder and wrist 5/5. Did not test elbow, but able to move against gravity well. Balance/Special Test Scores Quick DASH Score: 25.0000 Goals Goal 1:: LTG: Pt. to be I with HEP. Goal Time Frame: 2-4 Weeks Goal 2:: STG: Pt. to have full L elbow extension. Goal Time Frame: 2 Weeks Goal 3:: STG: Pt. to have increased L elbow flexion to full without increase in L elbow pain. Goal Time Frame: 2-4 Weeks Goal 4:: LTG: Pt. to complete all activities at home without increase in L elbow pain. Rehabilitation Potential Physical Therapy Diagnosis: Pt. has signs and symptoms consistent with Cubital tunnel release with elbow stiffness. Pt. has marked hypombility and would benefit from PT to address the above limitations. Rehabilitation Potential: Excellent Anticipated Interventions Patient/Client Instruction: Educate patient on: Condition, Plan of Care, Risk Factors and Benefits of Fitness Program For the Purpose of:: To facilitate caregiver knowledge, To improve self management, To prevent re- injury and To improve ability to perform tasks related to life management Therapeutic Exercise to Include: Flexibilty training, Passive ROM and Active ROM For the Purpose of:: To decrease pain and To increase ROM Manual Therapy Techniques to Include: Mobilization and Passive ROM For the Purpose of:: To decrease pain and To increase ROM Text: Thank you for the opportunity to evaluate your patient. For Medicare and Medicare HMO plans, please review the plan of care and approve it. It will need to be FAXED BACK to us at [phone] for Medicare purposes. For Medicare only, by signing this I certify the plan of care. Please let me know if there are questions or concerns regarding this plan of care. Physician Signature: Date: 10/16/24 1112 CC: AGUSTIN LUNDBERG; Dr. Sarah Rodriguez DO CLS Signed Normal [facility] Gastroenterology Visit Repor ton 08-27-2024 Gastroenterology Visit Report [facility]enter[facility] [address] [place] [address] OFFICE VISIT Date of Service: 08/27/24 MR#: [id number] Acct: [id number] Name: KEARAGLADYS BERNAL Rep #: [id number] : 2000 Provider: Alvarado Alfonso DO Age/Sex: 24/F [place] [facility] [place] [facility] Status: Signed Intake Vital Signs 01/18/22 14:55 Height 5 ft 8 in Intake Visit Reasons: 4 M FU Allergies adhesive Allergy (Verified 04/29/24 15:46) Rash doxycycline Allergy (Verified 04/29/24 15:46) Other gluten Adverse Reaction (Verified 04/29/24 15:46) Other metoclopramide (From Reglan) Adverse Reaction (Verified 04/29/24 15:46) Other metoclopramide HCl (From Reglan) Adverse Reaction (Verified 04/29/24 15:46) [facility] History (Updated 08/27/24 @ 18:[address] Childers Friend, DO) Robyn-Danlos disease Mast cell disease POTS (postural orthostatic tachycardia syndrome) Carcinoid tumor Abnormal uterine bleeding (AUB) Injury of back Injury of head and neck Dietary restriction Non-smoker History of echocardiogram Asthma Surgical History Hx of dilation and curettage History of back surgery Hx of colonoscopy History of esophagogastroduodenoscopy (EGD) Hx of excision of lamina of cervical vertebra for decompression of spinal cord Social History Smoking Status: Never smoker alcohol intake: never HPI HPI Details: GLADYS SARAH, is a 24 F who presents to the office today for follow up. established with this clinic 7.09.01. Since she has been having multiple gastroenterology issues. RLQ that is always present without aggravating or alleviating factors; BM does not affect. BM are irregular and will have no BM for four days with urgent sometimes watery but mostly loose diarrhea with infrequent blood 5-6 days. Postprandially she will have LUQ pain and generalized abdominal spasming. Periodically she will also have increased belching, hiccupping and regurgitation sensation occurring several times a week. She has begun eating small frequent meals r/t early satiety and emesis. She has had similar issues in high school. During this episode she eliminated gluten and this was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 [facility] Comment on above: Order Comment: Speci men Type: BLOOD SPECIMEN [facility] Address: [address] [place] [address] Performed By: #### 5 0190-8, 9, 2283-8, 2275-4 #### [facility] CLIA [id number] [address] [place] [address] [place] Erythrocyte distribution width (RBC) [Ratio] 13.3 % Normal 11.5-15.0 [facility] Comment on above: Order Comment: Speci men Type: BLOOD SPECIMEN [facility] Address: [address] [place] [address] Performed By: #### 5 0190-8, 2131-9, 4-8, 6-4 #### [facility] CLIA [id number] [address] [place] [address] [place] Hematocrit (Bld) [Volume fraction] 41.2 % Normal 36.0-46.0 [facility] Comment on above: Order Comment: Speci men Type: BLOOD SPECIMEN [facility] Address: [address] [place] [address] Performed By: #### 5 0190-8, 9, 4-8, 6-4 #### [facility] CLIA [id number] [address] [place] [address] [place] Hemoglobin (Bld) [Mass/Vol] 13.9 g/dL Normal 11.5-15.5 [facility] Comment on above: Order Comment: Speci men Type: BLOOD SPECIMEN [facility] Address: [address] [place] [address] Performed By: #### 5 0190-8, 2131-9, 4-8, 6-4 #### [facility] CLIA [id number] [address] [place] [address] [place] Immature granulocytes (Bld) [#/Vol] 10*3/uL Normal <0.10 [facility] Comment on above: Order Comment: Speci men Type: BLOOD SPECIMEN [facility] Address: [address] [place] [address] Performed By: #### 5 0190-8, 2131-9, 4-8, 2276-4 #### [facility] CLIA [id number] [address] [place], [place] [address] [place] Immature granulocytes/100 WBC (Bld) 0.3 % Normal [facility] Comment on above: Order Comment: Speci men Type: BLOOD SPECIMEN [facility] Address: [address] [place] [address] Performed By: #### 5 0190-8, 2131-9, 4-8, 6-4 #### [facility] CLIA [id number] [address] [place] [address] [place] Lymphocytes (Bld) [#/Vol] 2.42 10*3/uL Normal 1.00-4.00 [facility] Comment on above: Order Comment: Speci men Type: BLOOD SPECIMEN [facility] Address: [address] [place] [address] Performed By: #### 5 0190-8, 2131-9, 2283-8, 6-4 #### [facility] CLIA [id number] [address] [place] [address] [place] Lymphocytes/100 WBC (Bld) 32.1 % Normal [facility] Comment on above: Order Comment: Speci men Type: BLOOD SPECIMEN Order[facility] Address: [address] [place] [address] Performed By: #### 5 0190-8, 2131-9, 4-8, 6-4 #### [facility] CLIA [id number] [address] [place] [address] [place] MCH (RBC) [Entitic mass] 28.6 pg Normal 26.0-34.0 [facility] Comment on above: Order Comment: Speci men Type: BLOOD SPECIMEN [facility] Address: [address] [place] [address] Performed By: #### 5 0190-8, 2131-9, 4-8, 2276-4 #### [facility] CLIA [id number] [address] [place] [address] [place] MCHC (RBC) [Mass/Vol] 33.7 g/dL Normal 30.5-36.0 [facility] Comment on above: Order Comment: Speci men Type: BLOOD SPECIMEN [facility] Address: [address] [place] [address] Performed By: #### 5 0190-8, 9, 8, 2275-4 #### [facility] CLIA [id number] [address] [place] [address] [place] MCV (RBC) [Entitic vol] 84.8 fL Normal 80.0-100.0 [facility] Comment on above: Order Comment: Speci men Type: BLOOD SPECIMEN [facility] Address: [address] [place] [address] Performed By: #### 5 0190-8, 9, 2283-10, 2275-4 #### [facility] CLIA [id number] [address] [place] [address] [place] Monocytes (Bld) [#/Vol] 0.43 10*3/uL Normal <0.87 [facility] Comment on above: Order Comment: Speci men Type: BLOOD SPECIMEN [facility] Address: [address] [place] [address] Performed By: #### 5 0190-8, 9, 2283-10, 2275-4 #### [facility] CLIA [id number] [address] [place] [address] [place] Monocytes/100 WBC (Bld) 5.7 % Normal [facility] Comment on above: Order Comment: Speci men Type: BLOOD SPECIMEN [facility] Address: [address] [place] [address] Performed By: #### 5 0190-8, 9, 8, 2275-4 #### [facility] CLIA [id number] [address] [place] [address] [place] Neutrophils (Bld) [#/Vol] 4.51 10*3/uL Normal 1.45-7.50 [facility] Comment on above: Order Comment: Speci men Type: BLOOD SPECIMEN [facility] Address: [address] [place] [address] Performed By: #### 5 0190-8, 2131-9, 2283-8, 2275-4 #### [facility] CLIA [id number] [address] [place] [address] [place] Neutrophils/100 WBC (Bld) 59.8 % Normal [facility] Comment on above: Order Comment: Speci men Type: BLOOD SPECIMEN [facility] Address: [address] [place] [address] Performed By: #### 5 0190-8, 9, 8, 2275-4 #### [facility] CLIA [id number] [address] [place] [address] [place] Nucleated RBC (Bld) [#/Vol] 10*3/uL Normal <0.01 [facility] Comment on above: Order Comment: Speci men Type: BLOOD SPECIMEN [facility] Address: [address] [place] [address] Performed By: #### 5 0190-8, 9, 8, 2275-4 #### [facility] CLIA [id number] [address] [place] [address] [place] Nucleated RBC/100 WBC (Bld) [Ratio] 0.0 /100 WBC Normal [facility] Comment on above: Order Comment: Speci men Type: BLOOD SPECIMEN [facility] Address: [address] [place] [address] Performed By: #### 5 0190-8, 2131-9, 2283-8, 2275-4 #### [facility] CLIA [id number] [address] [place] [address] [place] Platelet mean volume (Bld) [Entitic vol] 9.4 fL Normal 9.0-12.7 [facility] Comment on above: Order Comment: Speci men Type: BLOOD SPECIMEN [facility] Address: [address] [place] [address] Performed By: #### 5 0190-8, 9, 8, 2275-4 #### [facility] CLIA [id number] [address] [place] [address] [place] Platelets (Bld) [#/Vol] 363 10*3/uL Normal 150-400 [facility] Comment on above: Order Comment: Speci men Type: BLOOD SPECIMEN [facility] Address: [address] [place] [address] Performed By: #### 5 0190-8, 9, 8, 2275-4 #### [facility] CLIA [id number] [address] [place] [address] [place] RBC (Bld) [#/Vol] 4.86 10*6/uL Normal 3.90-5.20 [facility] Comment on above: Order Comment: Speci men Type: BLOOD SPECIMEN [facility] Address: [address] [place] [address] Performed By: #### 5 0190-8, 9, 8, 2275-4 #### [facility] CLIA [id number] [address] [place] [address] [place] WBC (Bld) [#/Vol] 7.54 10*3/uL Normal 3.70-11.00 [facility] Comment on above: Order Comment: Speci men Type: BLOOD SPECIMEN [facility] Address: [address] [place] [address] Performed By: #### 5 0190-8, 2131-9, 2284-8, 2276-4 #### [facility] CLIA [id number] [address] [place] [address] [place] CNOVon 06-13-2024 CNOV Office Visit (HANDMN ) GLADYS SARAH ([id number]) 2000 F Date Time Provider Department 06/13/24 4:45 PM AGUSTIN LUNDBERG HANDMN During your visit today, we recorded the following information about you: Agustin Lundberg PA-C 07/24/2024 11:36 AM Signed Gladys Sarah underwent L cubital tunnel release on 05/31/24. The patient returns today for follow-up. The patient reports no major issues since surgery. She reports she is having a little pain near the triceps. The numbness/tingling in the L hand had improved. On exam of the L hand, the incision was healed without evidence of infection. (+) L thumb opposition. Able to make a full composite L fist. (-) claw deformity of L RF and SF. (-) atrophy of first dorsal interosseous muscle. ASSESSMENT: Post-operative state (primary encounter diagnosis) PLAN No lifting > 5 lbs using the operated hand for 2 more weeks. After that, there will be no restrictions, and the patient may use the operated hand as tolerated. She was given a referral to PT/OT to start working on gentle ROM. Order placed for a NMUS to evlauate the contralateral side. Follow up in 4 weeks for left elbow ROM re-evaluation. The patient is seen and examined by Agustin Lundberg PA-C and the following reflects his/her service. Scribed by Jairo Luis RN I agree with the Chief Complaint, ROS, and Past Histories independently gathered by the clinical operations support specialist and the remaining scribed note accurately describes my personal service to the patient. Agustin Lundberg PA-C This note was generated with voice recognition software and may contain errors, including spelling, grammar, syntax and misrecognition of what was dictated, that are not fully corrected. Referring Provider: SELF [200] Allergies As of Date: 06/13/2024 Noted Allergy Reaction GLUTEN 10/11/2017 8 - GI Upset MOLD 04/04/2018 14 - Other: See Comments ADHESIVE TAPE (ROSINS) 2016 2 - Rash DOXYCYCLINE 02/02/2021 5 - Intolerance Comments: Yeast infection all over her body REGLAN (METOCLOPRAMIDE HCL) 03/19/2014 14 - Other: See Comments Comments: panic attack Date Reviewed: 06/13/2024 Reviewed by: Jacinta Smith Cast Tech - Fully Assessed Primary Visit Diagnosis:Post-operative state [Z98.890] Other Visit Diagnosis:Right arm numbness [R20.0] Order(s):CONSULT TO ADMISSIONS ADVISOR [630383] Order #: [id number]: 1 FUTURE NEUROMUSCULAR ULTRASOUND/NEUROLOGY [0292718] Order #: [id number] CONSULT TO PHYSICAL THERAPY [9032] Order #: [id number]: 1 FUTURE Prescriptions as of 07/24/2024 - pantoprazole DR (PROTONIX) 20 mg tablet Take 1 tablet by mouth once daily. - CPAP/BIPAP/OTHER Type .CPAPSettings into a note to see current settings/supplies/DME information. - OTC PRODUCT once daily. sulfurzym - OTC NUTRITIONAL SUPPLEMENT once daily. mitocore - triamcinolone acetonide (NASACORT) 55 mcg nasal inhaler Use 2 Sprays in the nose once daily. - ondansetron (ZOFRAN) 4 mg tablet Take 1 tablet by mouth every 8 hours as needed for nausea/vomiting. - MAGNESIUM GLYCINATE ORAL Take 200 mg by mouth once daily. 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*01/26/2011 Asthma [J45.909] 03/17/2011 Concussion [S06.0XAA] 11/08/2012 03/19/2013 Postural dizziness with near syncope [R42, R55] 11/28/2012 Cervical strain [S16.1XXA] 11/29/2012 Primary amenorrhea [N91.0] 02/15/2013 10/21/2019 Bulging discs [DWN9037] 05/28/2013 Low back pain [M54.50] 05/30/2013 Chronic daily headache [R51.9] 04/30/2014 08/18/2015 Migraine with aura [G43.109] 04/30/2014 08/18/2015 Exertional headache [G44.84] 07/10/2014 10/21/2019 Dizziness and giddiness [R42] 07/22/2015 10/21/2019 POTS (postural orthostatic tachycardia syndrome*07/22/2015 Migraine with aura and without status migrainos*08/18/2015 Cervicalgia [M54.2] 08/18/2015 Convergence insufficiency [H51.11] 08/18/2015 Post-concussion syndrome [F07.81] 08/18/2015 10/21/2019 Neck pain [M54.2] 09/26/2016 10/21/2019 Whiplash injury to neck [S13.4XXA] 09/26/2016 10/21/2019 Neural foraminal stenosis of cervical spine [M4*10/07/2019 H/O cervical spine surgery [Z98.890] 10/07/2019 Right lower quadrant abdominal pain [R10.31] 02/15/2021 Stress [F43.9] 02/15/2021 Anxiety [F41.9] 02/15/2021 Chronic fatigue [R53.82] 02/15/2021 Arthralgia [M25.50] 02/15/2021 Rash [R21] 02/15/2021 Heavy metal exposure [Z77.018] 02/15/2021 Chemical sensitivity [Z91.09] 02/15/2021 Tachycardia [R00.0] 05/10/2021 Orthostatic intolerance [I95.1] 05/24/2021 Disturbance of skin sensation [R20.9] 05/24/2021 Chronic intermittent post-traumatic headache [G*05/24/2021 Pain in both lower extremities [M79.604, M79.60*06/07/2021 07/05/2021 Food intolerance [K90.49] 10/19/2021 Se (more content not included)... Normal [facility] Ferritin SerPl-mCncon 2024 Ferritin [Mass/Vol] 142.0 ng/mL Normal 14.7-205.1 [facility] Comment on above: Order Comment: Speci men Type: BLOOD SPECIMENOrdering Facility: [facility] Address: [address] [place] [address] Performed By: #### 5 0190-8, 2275-4, 2131-11 ####[facility] [id number] [place] [id number] [place] Iron and Iron binding capaci ty panelon 06-13-2024 Iron [Mass/Vol] 48 ug/dL Normal 41-186 [facility] Comment on above: Order Comment: Speci men Type: BLOOD SPECIMENOrdering Facility: [facility] Address: [address] [place] [address] Performed By: #### 5 0190-8, 2275-, 2131-11 ####[facility] [id number] [place] [id number] [place] Iron binding capacity [Mass/Vol] 254 ug/dL Normal 232-386 [facility] Comment on above: Order Comment: Speci men Type: BLOOD SPECIMENOrdering Facility: [facility] Address: [address] [place] [address] Performed By: #### 5 0190-8, 2275-, 2131-11 ####[facility] [id number] [place] [id number] [place] Iron/TIBC [Molar ratio] 18.9 % Normal 15.0-57.0 [facility] Comment on above: Order Comment: Speci men Type: BLOOD SPECIMENOrdering Facility: [facility] Address: [address] [place] [address] Performed By: #### 5 0190-8, 4, 2131-11 ####[facility] [id number] [address] [facility] Vit B12 SerPl-mCncon 025 Cobalamin (Vitamin B12) [Mass/Vol] 657 pg/mL Normal 232-1245 [facility] Comment on above: Order Comment: Speci men Type: BLOOD SPECIMENOrdering Facility: [facility] Address: [address] [place] [address] Performed By: #### 5 0190-8, 2275-06, 2131-11 ####[facility] [id number] [address] Absolute lymphocyte countOrd ered By: Dewayne Mcgregor on 06-05-2024 Lymphocytes Auto (Unsp spec) [#/Vol] 1.54 10*3/uL 0.83-4.51 [facility] Absolute neutrophil countOrd ered By: Dewayne Mcgregor on 06-05-2024 Neutrophils (Bld) [#/Vol] 3.5 10*3/uL 2.0-7.7 [facility] Automated lymphocyte count a s percentage of total leukocytesOrdered By: Dewayne Mcgregor on 06-05-2024 Lymphocytes/100 WBC Auto (Unsp spec) 26.7 % 19-41 [facility] Basophil percentageOrdered B y: Dewayne Mcgregor on 06-05-2024 Basophils/100 WBC (Bld) 0.7 % 0-1 [facility] Blood microscopic examinatio n by malaria smear (nominal result)Ordered By: Dewayne Mcgregor on 06-05-2024 Microscopic observation Malaria smear Nom (Bld) Negative Negative [facility] Comment on above: No Malarial organism s identified.Note: One negative result does not rule out the possibilityof parasitic infestation. If protozoal, filarial, ortrypanosomal infection is strongly suspected, test shouldbe performed at least three times with samples obtained atdifferent times in the fever cycle. CBC W/Diff, Automatedon 05-12 Absolute Lymph 1.54 X10 3/uL Normal 0.83-4.51 [facility] Comment on above: Performed By: #### L 101.0450, L100.0100 ####[facility] [address] [place], [address] Absolute Neut 3.5 X10 3/uL Normal 2.0-7.7 [facility] Comment on above: Performed By: #### L 101.0450, L100.0100 ####[facility] [address] [place], [address] Basophils/100 WBC (Bld) 0.7 % Normal 0-1 [facility] Comment on above: Performed By: #### L 101.0450, L100.0100 ####[facility] [address] [place], [address] Eosinophils/100 WBC (Bld) 1.9 % Normal 0-5 [facility] Comment on above: Performed By: #### L 101.0450, L100.0100 ####[facility] [address] [place], [address] Erythrocyte distribution width (RBC) [Ratio] 13.2 % Normal 11.6-14.6 [facility] Comment on above: Performed By: #### L 101.0450, L100.0100 ####[facility] [address] [place], [address] Hematocrit (Bld) [Volume fraction] 41.0 % Normal 37-47 [facility] Comment on above: Performed By: #### L 101.0450, L100.0100 ####[facility] [address] [place], [address] Hemoglobin (Bld) [Mass/Vol] 13.8 g/dL Normal 12.0-15.0 [facility] Comment on above: Performed By: #### L 101.0450, L100.0100 ####[facility] [address] [place], [address] IG% 1.000 High 0.0-0.9 [facility] Comment on above: Result Comment: IG% - Immature Granulocytes (promyelocytes, myelocytes and metamyelocytes) > 1% indicates that a LEFT SHIFT is Present. Performed By: #### L 101.0450, L100.0100 ####[facility] [address] [place], [address] Lymphocytes/100 WBC (Bld) 26.7 % Normal 19-41 [facility] Comment on above: Performed By: #### L 101.0450, L100.0100 ####[facility] [address] [place], [address] MCH (RBC) [Entitic mass] 28.2 pg Normal 27.0-32.0 [facility] Comment on above: Performed By: #### L 101.0450, L100.0100 ####[facility] [address] [place], [address] MCHC (RBC) [Mass/Vol] 33.7 g/dL Normal 32-36 [facility] Comment on above: Performed By: #### L 101.0450, L100.0100 ####[facility] [address] [place], [address] MCV (RBC) [Entitic vol] 83.7 fL Normal 81-99 [facility] Comment on above: Performed By: #### L 101.0450, L100.0100 ####[facility] [address] [place], [address] Monocytes/100 WBC (Bld) 8.3 % Normal 0-10 [facility] Comment on above: Performed By: #### L 101.0450, L100.0100 ####[facility] [address] [place], [address] Neutrophils/100 WBC (Bld) 61.4 % Normal 47-70 [facility] Comment on above: Performed By: #### L 101.0450, L100.0100 ####[facility] [address] [place], [address] Nucleated RBC (Bld) [#/Vol] 0 10*3/uL Normal 0-5 [facility] Comment on above: Performed By: #### L 101.0450, L100.0100 ####[facility] [address] [place], [address] Platelet mean volume (Bld) [Entitic vol] 9.4 fL Normal 6.2-12.0 [facility] Comment on above: Performed By: #### L 101.0450, L100.0100 ####[facility] [address] [place], [address] Platelets (Bld) [#/Vol] 347 10*3/uL Normal 150-450 [facility] Comment on above: Performed By: #### L 101.0450, L100.0100 ####[facility] [address] [place], [address] RBC (Bld) [#/Vol] 4.90 10*6/uL Normal 4.2-5.4 [facility] Comment on above: Performed By: #### L 101.0450, L100.0100 ####[facility] [address] [place], [address] RDW SD 40.0 fl Normal 35.1-43.9 [facility] Comment on above: Performed By: #### L 101.0450, L100.0100 ####[facility] [address] [place], [address] WBC (Bld) [#/Vol] 5.8 10*3/uL Normal 4.4-11.0 [facility] Comment on above: Performed By: #### L 101.0450, L100.0100 ####[facility] [address] [place], [address] CNOVon 06-05-2024 CNOV Office Visit (PLAFVW ) GLADYS SARAH ([id number]) 2000 F Date Time Provider Department 06/05/24 1:30 PM AGUSTIN LUNDEBRG PLAFVW During your visit today, we recorded the following information about you: Agustin Lundberg PA-C 06/05/2024 2:37 PM Signed Jessicamarino Esther Sarah underwent L cubital tunnel release on 05/31/24. The patient returns today for follow-up. The patient reports no major issues since surgery. She had concern for infection as she was told her new medication for malaria infection would affect her bactrim effectiveness. The numbness/tingling in the L hand had improved. On exam of the L hand, the incision was healed without evidence of infection. (+) L thumb opposition. Able to make a full composite L fist. (-) claw deformity of L RF and SF. (-) atrophy of first dorsal interosseous muscle. ASSESSMENT: Post-operative state (primary encounter diagnosis) PLAN: Soft dressing replaced. No infections noted. No lifting > 5 lbs using the operated hand for 2 more weeks. After that, there will be no restrictions, and the patient may use the operated hand as tolerated. Return to clinic in 1 week fro previously scheduled suture removal assessment. 15 Minutes total visit spent face to face with patient. Greater than 50% of the time was spent for counseling and coordination of care, discussing treatment options and recommendations. Agustin Lundberg PA-C June 05, 2024 2:04 PM This note was generated with voice recognition software and may contain errors, including spelling, grammar, syntax and misrecognition of what was dictated, that are not fully corrected. Referring Provider: SELF [[id number]] Allergies As of Date: 06/05/2024 Noted Allergy Reaction GLUTEN 10/11/2017 8 - GI Upset MOLD 04/04/2018 14 - Other: See Comments ADHESIVE TAPE (ROSINS) 2016 2 - Rash DOXYCYCLINE 02/02/2021 5 - Intolerance Comments: Yeast infection all over her body REGLAN (METOCLOPRAMIDE HCL) 03/19/2014 14 - Other: See Comments Comments: panic attack Date Reviewed: 06/05/2024 Reviewed by: Johana Borrego MA - Fully Assessed Reason for Visit: Post Op [174] Primary Visit Diagnosis:Post-operative state [Z98.890] Prescriptions as of 06/05/2024 - oxyCODONE-acetaminophen (PERCOCET) 5-325 mg tablet Take 1 tablet by mouth every 4 hours as needed for pain for up to 7 days. - sulfamethoxazole-trimethopr im (BACTRIM DS) 800-160 mg per tablet Take 1 tablet by mouth two times a day for 7 days. - pantoprazole DR (PROTONIX) 20 mg tablet Take 1 tablet by mouth once daily. - CPAP/BIPAP/OTHER Type .CPAPSettings into a note to see current settings/supplies/DME information. - OTC PRODUCT once daily. sulfurzym - OTC NUTRITIONAL SUPPLEMENT once daily. mitocore - triamcinolone acetonide (NASACORT) 55 mcg nasal inhaler Use 2 Sprays in the nose once daily. - ondansetron (ZOFRAN) 4 mg tablet Take 1 tablet by mouth every 8 hours as needed for nausea/vomiting. - MAGNESIUM GLYCINATE ORAL Take 200 mg by mouth once daily. 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*01/26/2011 Asthma [J45.909] 03/17/2011 Concussion [S06.0XAA] 11/08/2012 03/19/2013 Postural dizziness with near syncope [R42, R55] 11/28/2012 Cervical strain [S16.1XXA] 11/29/2012 Primary amenorrhea [N91.0] 02/15/2013 10/21/2019 Bulging discs [AXA5904] 05/28/2013 Low back pain [M54.50] 05/30/2013 Chronic daily headache [R51.9] 04/30/2014 08/18/2015 Migraine with aura [G43.109] 04/30/2014 08/18/2015 Exertional headache [G44.84] 07/10/2014 10/21/2019 Dizziness and giddiness [R42] 07/22/2015 10/21/2019 POTS (postural orthostatic tachycardia syndrome*07/22/2015 Migraine with aura and without status migrainos*08/18/2015 Cervicalgia [M54.2] 08/18/2015 Convergence insufficiency [H51.11] 08/18/2015 Post-concussion syndrome [F07.81] 08/18/2015 10/21/2019 Neck pain [M54.2] 09/26/2016 10/21/2019 Whiplash injury to neck [S13.4XXA] 09/26/2016 10/21/2019 Neural foraminal stenosis of cervical spine [M4*10/07/2019 H/O cervical spine surgery [Z98.890] 10/07/2019 Right lower quadrant abdominal pain [R10.31] 02/15/2021 Stress [F43.9] 02/15/2021 Anxiety [F41.9] 02/15/2021 Chronic fatigue [R53.82] 02/15/2021 Arthralgia [M25.50] 02/15/2021 Rash [R21] 02/15/2021 Heavy metal exposure [Z77.018] 02/15/2021 Chemical sensitivity [Z91.09] 02/15/2021 Tachycardia [R00.0] 05/10/2021 Orthostatic intolerance [I95.1] 05/24/2021 Disturbance of skin sensation [R20.9] 05/24/2021 Chronic intermittent post-traumatic headache [G*05/24/2021 Pain in both lower extremities [M79.604, M79.60*06/07/2021 07/05/2021 Food intolerance [K90.49] 10/19/2021 Seasonal allergies [J30.2] 10/19/2021 Mast cell disease [D47.09] 10/19/2021 Elevated serum tryptas (more content not included)... Normal [facility] Eosinophil percentageOrdered By: Dewayne Mcgregor on 06-05-2024 Eosinophils/100 WBC (Bld) 1.9 % 0-5 [facility] Erythrocyte distribution wid th ratioOrdered By: Dewayne Mcgregor on 06-05-2024 Erythrocyte distribution width (RBC) [Ratio] 13.2 % 11.6-14.6 [facility] Erythrocyte distribution wid th standard deviationOrdered By: Dewayne Mcgregor on 06-05-2024 Erythrocyte distribution width (RBC) [Entitic vol] 40.0 fL 35.1-43.9 [facility] Erythrocyte distribution width (RBC) [Ratio] 40.0 fl 35.1-43.9 [facility] Hematocrit Auto (Bld) [Volum e fraction]Ordered By: Dewayne Mcgregor on 06-05-2024 Hematocrit (Bld) [Volume fraction] 41.0 % 37-47 [facility] Hemoglobin measurementOrdere d By: Dewayne Mcgregor on 06-05-2024 Hemoglobin (Bld) [Mass/Vol] 13.8 g/dL 12.0-15.0 [facility] Immature granulocytes/100 WB C Auto (Bld)Ordered By: Dewayne Mcgregor on 06-05-2024 Immature granulocytes/100 WBC (Bld) 1.000 % High 0.0-0.9 [facility] Comment on above: IG% - Immature Granu locytes (promyelocytes, myelocytes and metamyelocytes) > 1% indicates that a LEFT SHIFT is Present. Lymphocytes Auto (Unsp spec) [#/Vol]Ordered By: Dewayne Mcgregor on 06-05-2024 Lymphocytes (Bld) [#/Vol] 1.54 10*3/uL 0.83-4.51 [facility] Lymphocytes/100 WBC Auto (Un sp spec)Ordered By: Dewayne Mcgregor on 06-05-2024 Lymphocytes/100 WBC (Bld) 26.7 % 19-41 [facility] MCV (mean corpuscular volume ) determinationOrdered By: Dewayne Mcgregor on 06-05-2024 MCV (RBC) [Entitic vol] 83.7 fL 81-99 [facility] Mean corpuscular hemoglobin (MCH) determinationOrdered By: Dewayne Mcgregor on 06-05-2024 MCH (RBC) [Entitic mass] 28.2 pg 27.0-32.0 [facility] Mean corpuscular hemoglobin concentration (MCHC) determinationOrdered By: Dewayne Mcgregor on 06-05-2024 MCHC (RBC) [Mass/Vol] 33.7 g/dL 32-36 [facility] Mean platelet volume determi nationOrdered By: Dewayne Mcgregor on 06-05-2024 Platelet mean volume (Bld) [Entitic vol] 9.4 fL 6.2-12.0 [facility] Microscopic observation [place] oralia smear Nom (Bld)Ordered By: Dewayne Mcgregor on 06-05-2024 Malaria Smear Interpretation Negative Negative [facility] Comment on above: No Malarial organism s identified.Note: One negative result does not rule out the possibilityof parasitic infestation. If protozoal, filarial, ortrypanosomal infection is strongly suspected, test shouldbe performed at least three times with samples obtained atdifferent times in the fever cycle. Monocyte percentageOrdered B y: Dewayne Mcgregor on 06-05-2024 Monocytes/100 WBC (Bld) 8.3 % 0-10 [facility] Neutrophil percentageOrdered By: Dewayne Mcgregor on 06-05-2024 Neutrophils/100 WBC (Bld) 61.4 % 47-70 [facility] Nucleated red blood cell per centageOrdered By: Dewayne Mcgregor on 06-05-2024 Nucleated RBC/100 WBC (Bld) [Ratio] 0 % 0-5 [facility] Platelet countOrdered By: Radha Mcgregor on 06-05-2024 Platelets (Bld) [#/Vol] 347 10*3/uL 150-450 [facility] RBC Auto (Bld) [#/Vol]Ordere d By: Dewayne Mcgregor on 06-05-2024 RBC (Bld) [#/Vol] 4.90 10*6/uL 4.2-5.4 [facility] White blood cell (WBC) count Ordered By: Dewayne Mcgregor on 06-05-2024 WBC (Bld) [#/Vol] 5.8 10*3/uL 4.4-11.0 [facility] ANES POSTPROC EVALon 025 ANES POSTPROC EVAL HNO ID: [id number] Author: ANAY BACK MD Service: Anesthesiology Author Type: Anesthesiologist Type: Anesthesia Postprocedure Evaluation Filed: 05/31/2024 13:08 Note Text: POST ANESTHESIA EVALUATION NOTE : 2000 Procedure Summary Date: 05/31/24 Room / Location: [place] [address] / OR Anesthesia Start: 915 Anesthesia Stop: 1049 Procedures: NEUROPLASTY ULNAR NERVE AT ELBOW (Left: Hand) LENGTHENING FLEXOR OR EXTENSOR TENDON, FOREARM AND/OR WRIST, SINGLE (Left: Wrist) TRANSPOSITION NERVE ULNAR (Left: Wrist) Diagnosis: Cubital tunnel syndrome, left (Cubital tunnel syndrome, left [G56.22]) Surgeons: Raghu Dong MD Responsible Provider: Anay Back MD Anesthesia Type: MAC ASA Status: 3 Anesthesia Type: MAC Last Vitals Vitals Value Taken Time BP 109/64 05/31/24 1215 Temp 36.8 ?C (98.2 ?F) 05/31/24 1215 HR SpO2 93 05/31/24 1119 Resp 16 05/31/24 1215 SpO2 100 % 05/31/24 1215 Vitals shown include unfiled device data. Post Anesthesia Patient Status Patient Evaluation: PACU. PACU/ICU Patient Condition: stable. Anticipated Disposition: phase 2 then home. Neurological Status: aware and responsive. Pulmonary Status: breathing comfortably on room air Airway Control: returned to baseline unsupported. Cardiovascular Status: stable. Pain Management: clinically adequate - multimodal analgesia pain management approach Postoperative Hydration: acceptable. Intraoperative Events: no significant anesthesia events Post Operative Nausea/Vomiting Status: no significant post operative nausea or vomiting Recommendation: continue current plan of care. Anesthesia Observations No Documentation SIGNATURE: Anay Back MD PATIENT NAME: Gladys Sarah DATE: May 31, 2024 TIME: 1:08 PM CSN: [id number] [facility] ANES PRE-OPon 05-31-2024 ANES PRE-OP HNO ID: [id number] Author: ANAY BACK MD Service: Anesthesiology Author Type: Anesthesiologist Type: Anesthesia Preprocedure Evaluation Filed: 05/31/2024 09:46 Note Text: ANESTHESIOLOGY DAY OF SURGERY NOTE : 2000 Procedure Information Anesthesia Start Date/Time: 05/31/24 0916 Procedures: NEUROPLASTY ULNAR NERVE AT ELBOW (Left: Hand) LENGTHENING FLEXOR OR EXTENSOR TENDON, FOREARM AND/OR WRIST, SINGLE (Left: Wrist) TRANSPOSITION NERVE ULNAR (Left: Wrist) Location: OR / [facility] Surgeons: Raghu Dong MD Estimated body mass index is 22.92 kg/m? as calculated from the following: Height as of 05/14/24: 167.6 cm (5' 6). Weight as of 05/14/24: 64.4 kg (142 lb). Most recent hematocrit and potassium results: Hematocrit 37.7 05/03/2024 Potassium 3.6 05/03/2024 Relevant Problems ANESTHESIA (+) MIKAL (obstructive sleep apnea) CARDIO (+) Flushing (+) Migraine with aura and without status migrainosus, not intractable GI (+) Gastroesophageal reflux disease with esophagitis without hemorrhage NEURO-PSYCH (+) Chronic intermittent post-traumatic headache (+) Migraine with aura and without status migrainosus, not intractable PULMONARY (+) Asthma (+) Intermittent asthma without complication (+) MIKAL (obstructive sleep apnea) Other (+) Mast cell disease I - PHYSICAL EVALUATION AIRWAY Patient intubated: No. Tracheostomy tube not present Mallampati: I. TM distance: >3 FB. Neck ROM: full. Mouth opening: adequate. Short neck: no. Thick neck: no DENTAL Normal dental observations. Dental findings: teeth intact. Additional exam findings: yes. CARDIOVASCULAR Normal cardiovascular observations. Rhythm: regular Rate: normal PULMONARY Normal pulmonary observations. Breath sounds clear to auscultation. II - ANESTHESIA PLAN ASA Score: 3 Anesthetic Plan: MAC and regional The patient is not a current smoker. NPO Status: adequate Anesthetic plan additional comments: Supraclav. block. Beta Jj Monitoring Plan Monitoring plan: Standard ASA. Post Procedure Analgesic Plan Postoperative analgesic plan: multimodal analgesia and peripheral nerve block. Informed Consent Anesthetic risks, benefits, alternatives, personnel and consent discussed: yes. Patient / Responsible Alliance Party agrees to proceed: yes Patient / Surrogate agrees to blood products: Yes Significant changes in the patient condition since the History and Physical, not otherwise documented in primary service progress note: no. Potential Anesthesia issues that may suggest increased risk of complications or contraindication to planned procedure: none. Vitals Value Taken Time BP 112/75 05/31/24 0909 Pulse 93 05/31/24 0909 Resp 16 05/31/24 09 Temp 36.9 ?C (98.4 ?F) 05/31/24 0744 SpO2 98 % 05/31/24 0909 Facility-Administered Medications as of 05/31/2024 Medication Dose Route Frequency lidocaine (PF) 10 mg/mL (1 %) 1-2 mg injection (XYLOCAINE) 0.1-0.2 mL INTRADERMAL PRN lactated ringers iv infusion 5-30 mL/hr INTRAVENOUS CONTINUOUS NaCl 0.9% iv flush bag 20 mL INTRAVENOUS PRN [COMPLETED] ceFAZolin iv piggyback 2 g in D5W (iso-osmotic) 100 mL (ANCEF) 2 g INTRAVENOUS Pre-Op Once [COMPLETED] ondansetron 4 mg tab(s) (ZOFRAN) 4 mg ORAL NOW Or [COMPLETED] ondansetron (PF) 4 mg injection (ZOFRAN) 4 mg INTRAVENOUS NOW scopolamine (delivers 1 mg over 3 days) 1 Patch (TRANSDERM-SCOP) 1 Patch TRANSDERMAL Pre-Op Once And scopolamine - VERIFY patch OTHER q 8 H And [START ON 06/01/2024] scopolamine - REMOVE PATCH OTHER ONCE [COMPLETED] acetaminophen 1,000 mg tab(s) (TYLENOL) 1,000 mg ORAL Pre-Op Once NaCl 0.9% irrigation bottle X (OR/PROCEDURE) PRN Outpatient Medications as of 05/31/2024 Medication Sig CPAP/BIPAP/OTHER Type .CPAPSettings into a note to see current settings/supplies/DME information. triamcinolone acetonide (NASACORT) 55 mcg nasal inhaler Use 2 Sprays in the nose once daily. ondansetron (ZOFRAN) 4 mg tablet Take 1 tablet by mouth every 8 hours as needed for nausea/vomiting. MAGNESIUM GLYCINATE ORAL Take 200 mg by mouth once daily. oxyCODONE-acetaminophen (PERCOCET) 5-325 mg tablet Take 1 tablet by mouth every 4 hours as needed for pain for up to 7 days. sulfamethoxazole-trimethopr im (BACTRIM DS) 800-160 mg per tablet Take 1 tablet by mouth two times a day for 7 days. OTC PRODUCT once daily. sulfurzym OTC NUTRITIONAL SUPPLEMENT once daily. mitocore I have interviewed and examined the patient. I have reviewed the medical record and/or the pre-anesthesia evaluation, pertinent labs, and test results. This contains updated information obtained within 48 hours of Surgery/Procedure. SIGNATURE: Anay Back MD PATIENT NAME: Gladys Sarah DATE: May 31, 2024 TIME: 9:45 AM CSN: [id number] [facility] BRIEF OP NOTon 05-31-2024 BRIEF OP NOT HNO ID: [id number] Author: RAGHU DONG MD Service: Plastic Surgery Author Type: Physician Type: Brief Op Note Filed: 05/31/2024 10:51 Note Text: BRIEF OPERATIVE / PROCEDURE NOTE LOG ID: [id number] SURGERY/PROCEDURE DATE: 05/31/2024 INCISION/PROCEDURE START TIME: 9:36 AM INCISION CLOSE/PROCEDURE END TIME: 10:35 AM SURGEON(S)/PROCEDURALIST(S) AND LENS CUTTER(S): Surgeons and Role: * Raghu Dong MD - Primary Physician Mining Consultant: Agustin Lundberg PA-C SURGERY/PROCEDURE(S): left cubital tunnel release. ANESTHESIA: Block Regional - Extremity Upper FINDINGS: as expected ESTIMATED BLOOD LOSS: 10 mls SPECIMENS: None COMPLICATIONS: None CLOSURE TECHNIQUE: Primary PRE-OP/PRE-PROCEDURE DIAGNOSIS: Cubital tunnel syndrome on the left POST-OP/POST-PROCEDURE DIAGNOSIS: Same as Preop SIGNATURE: Raghu Dong MD PATIENT NAME: Gladys Sarah DATE: May 31, 2024 TIME: 10:50 AM [facility] HCG Preg Ur Qlon 05-31-2024 HCG ( test) Ql (U) Negative Normal Negative [facility] Comment on above: Order Comment: Speci men Type: URINE SPECIMEN Ordering Facility: [facility] Address: [address] [place] [address] Result Comment: This test is intended to aid in the early detection of . Very dilute urine samples, as indicated by a low specific gravity, may not contain sales representative cash registers levels of hCG. This test detects intact hCG only. This test does not reliably detect hCG degradation products, including free-beta subunit and beta-core fragment. Therefore, this test may show reduced reactivity in urine after 8 weeks gestation. A number of conditions other than , including trophoblastic disease and certain non-trophoblastic neoplasms cause elevated levels of hCG. As with any assay employing mouse antibodies, the possibility exists for interference by human anti-mouse antibodies (HAMA) in the specimen. The test provides a presumptive diagnosis for . Performed By: #### 2 106-3 #### [facility] [id number] [address] [place] [address] OF [facility] OPERATIVE NOon 05-31-2024 OPERATIVE NO HNO ID: [id number] Author: RAGHU DONG MD Service: Plastic Surgery Author Type: Physician Type: Operative Report Filed: 06/03/2024 22:25 Note Text: OPERATIVE/PROCEDURE REPORT LOG ID: [id number] SURGERY/PROCEDURE DATE: 05/31/2024 INCISION/PROCEDURE START TIME: 9:36 AM INCISION CLOSE/PROCEDURE END TIME: 10:35 AM SURGEON(S)/PROCEDURALIST(S) AND LENS CUTTER(S): Surgeons and Role: * Raghu Dong MD - Primary Physician Mining Consultant: Agustin Lundberg PA-C SURGERY/PROCEDURE(S): 1) Left cubital tunnel release ANESTHESIA: Block Regional - Extremity Upper INDICATIONS: This is a 24 year old female who presents with symptomatic left cubital tunnel who failed prior conservative treatment and is indicated for the procedure. RISKS, BENEFITS, ALTERNATIVES: The patient was counseled extensively regarding the options for treatment including operative and non-operative forms of treatment and after thorough counseling has elected to proceed with surgical treatment. The patient was counseled that with surgical treatment there is the possibility that their condition might not improve or may even worsen. Specific surgical risks discussed include bleeding, the need for possible blood product transfusion, infection, post-operative pain, damage to nerves and blood vessels, wound dehiscence and wound healing problems, incomplete relief of pain, post-operative instability (dislocation), the need for physical therapy, inability to return to desired level of function, post-operative limp, generalized dissatisfaction with the surgical procedure, complex regional pain syndrome, as well as medical complications such as DVT, PE, cardiopulmonary complications, and complications related to anesthesia. If hardware needs to be placed, additional risks include implant failure and nonunion/malunion. The patient expressed understanding of all the issues described above and has elected to proceed with the aforementioned procedure. INTRAOPERATIVE FINDINGS: Swollen ulnar nerve. Very distal triceps myotendinous junction with muscle compressing the nerve. SURGERY/PROCEDURE DETAILS: A time-out was performed to confirm patient identify and procedure. After adequate anesthesia was achieved, the entire extremity on the side of the operation were prepped and draped in the standard sterile fashion. A sterile tourniquet was then applied to the upper arm. An Esmarch was used to exsanguinated the hand and forearm, and the tourniquet was inflated to 250 mm Hg. We then turned our attention to the cubital tunnel region. We palpated and marked out the medial epicondyle and the olecranon, and marked the expected course of the ulnar nerve around the elbow. We made a longitudinal incision over the course of the ulnar nerve at the elbow. Incision was made using a scalpel, followed by blunt dissection under loupe magnification. One branch of the medial antebrachial cutaneous nerve (MABC) was identified and retracted out of the way. The cubital tunnel was entered, and the ulnar nerve was visualized. From this location, we dissected proximally into the upper arm for 8 cm, ensuring that all fascial constriction around the ulnar nerve in the distal upper arm region were released. We noted a very distal myotendinous junction of the triceps muscle with some portion of the muscle within the cubital tunnel. After this, we turned our attention to the proximal forearm region. The superficial fascia over the flexor pronator mass was divided longitudinally under direct vision. After that, the muscle fibers were split longitudinally to expose the ulnar nerve as it dived deeper into the forearm, and the deep fascial layer covering the ulnar nerve was divided under direct vision. After this, we then ranged the elbow several times from full extension into full flexion, and the ulnar nerve did not show evidence of subluxation. We therefore did not perform an anterior transposition. The tourniquet released. Hemostasis was achieved using bipolar cautery.The incision was closed in a layered fashion using 3-0 and 4-0 Monocryl. A soft dressing was applied to keep the elbow in extension for the next 2 weeks. All counts were correct at the conclusion of the case. The patient tolerated the procedure well without any immediate complication. The patient was transported to recovery room in good condition. TOURNIQUET TIME: About 40 min POSTOPERATIVE PLAN: 1) Follow up in 2 weeks. PRE-OP/PRE-PROCEDURE DIAGNOSIS: 1) Left cubital tunnel syndrome POST-OP/POST-PROCEDURE DIAGNOSIS: Same as Preop COUNTS: Instrument, sponge, and needle counts were correct at the end of the procedure ESTIMATED BLOOD LOSS: 0 ml SPECIMENS: * No specimens in log * IMPLANTABLE DEVICES: * No implants in log * DRAINS: None COMPLICATIONS: None PARTICIPATION IN SURGERY/PROCEDURE: I/primary surgeon/proceduralist performed the procedure with assista (more content not included)... [facility] [id number] 05-30-2024 M7400.3302 ___ TESTING PERFORMED AT [facility]. ORIGINAL REPORT ON FILE IN LAB CONTAINS ADDITIONAL TEST SITE INFORMATION. ___ Giardia Lamblia EIA NEGATIVE [facility] Comment on above: Performed By: #### M 600.5000, M7400.3302, M100.637, L101.0450, L3100.1950 #### [facility] [address] [place], [address] Ova and Parasites 8686on OP OVA AND PARASITES EX AM, ROUTINE These results were obtained using wet preparation(s) and trichrome stained smear. This test does not include testing for Crytosporidium parvum, Cyclospora, or Microsporidia. One negative specimen does not rule out the possibility of a parasitic infection. ___ TESTING PERFORMED AT [facility]. ORIGINAL REPORT ON FILE IN LAB CONTAINS ADDITIONAL TEST SITE INFORMATION. ___ Ova/Parasite Exam NO OVA, CYSTS, OR PARASITES FOUND. Normal [facility] Comment on above: Performed By: #### M 600.5000, M7400.3302, M100.637, L101.0450, L3100.1950 #### [facility] [address] [place], [place], [id number] H. PYLORI STOOL AGon 025 H PYLORI STL AG Negative Normal Negative [facility] Comment on above: Result Comment: Perf ormed at: [address] [id number] Poultry Farmer: Seth Dubon PhD, Phone: [phone] Performed By: #### M 600.5000, M7400.3302, M100.637, L101.0450, L3100.1950 #### [facility] [address] [place], [place], [id number] Malaria,Blood Parasiteson Interpretation Positive Abnormal Negative [facility] Comment on above: Performed By: #### M 600.5000, M7400.3302, M100.637, L101.0450, L3100.1950 #### [facility] [address] [place], [place], [id number] Hepatitis Panel Acuteon 05-11 COMMENT Comment Normal . [facility] Comment on above: Result Comment: Not infected with HCV unless early or acute infection is suspected (which may be delayed in an immunocompromised individual), or other evidence exists to indicate HCV infection. Performed at: [address] [id number] Poultry Farmer: Seth Dubon PhD, Phone: [phone] Performed By: #### L 500.4050, L3000.0375, L3100.3425, L101.9900, L501.6710, L504.2610, L100.9950, L100.0100 ####[facility] [address] [place], [place], [id number] HEP B CORE,IgM Negative Normal Negative [facility] Comment on above: Performed By: #### L 500.4050, L3000.0375, L3100.3425, L101.9900, L501.6710, L504.2610, L100.9950, L100.0100 ####[facility] [address] [place], [place], [id number] HEP B SURF AG Negative Normal Negative [facility] Comment on above: Performed By: #### L 500.4050, L3000.0375, L3100.3425, L101.9900, L501.6710, L504.2610, L100.9950, L100.0100 ####[facility] [address] [place], [place], [id number] HEP C VIRUS AB Non-Reactive Normal Non Reactive [facility] Comment on above: Performed By: #### L 500.4050, L3000.0375, L3100.3425, L101.9900, L501.6710, L504.2610, L100.9950, L100.0100 ####[facility] [address] [place], [address] HEPATITIS A-IgM Negative Normal Negative [facility] Comment on above: Result Comment: A ne gative anti-HAV IgM result suggests no recent or current HAV infection. Performed By: #### L 500.4050, L3000.0375, L3100.3425, L101.9900, L501.6710, L504.2610, L100.9950, L100.0100 ####[facility] [address] [place], [address] NEISHA + Protein Elect, Serumon 05-28-2024 Albumin [Mass/Vol] 3.9 g/dL Normal 2.9-4.4 [facility] Comment on above: Order Comment: N Performed By: #### L 500.4050, L3000.0375, L3100.3425, L101.9900, L501.6710, L504.2610, L100.9950, L100.0100 ####[facility] [address] [place], [address] Albumin/Globulin [Mass ratio] 1.4 {ratio} Normal 0.7-1.7 [facility] Comment on above: Order Comment: N Performed By: #### L 500.4050, L3000.0375, L3100.3425, L101.9900, L501.6710, L504.2610, L100.9950, L100.0100 ####[facility] [address] [place], [address] RMXOB-1-HRFN 0.2 g/dL Normal 0.0-0.4 [facility] Comment on above: Order Comment: N Performed By: #### L 500.4050, L3000.0375, L3100.3425, L101.9900, L501.6710, L504.2610, L100.9950, L100.0100 ####[facility] [address] [place], [address] UKYNW-3-SKLU 0.7 g/dL Normal 0.4-1.0 [facility] Comment on above: Order Comment: N Performed By: #### L 500.4050, L3000.0375, L3100.3425, L101.9900, L501.6710, L504.2610, L100.9950, L100.0100 ####[facility] [address] [place], [address] BETA GLOBULIN 0.9 g/dL Normal 0.7-1.3 [facility] Comment on above: Order Comment: N Performed By: #### L 500.4050, L3000.0375, L3100.3425, L101.9900, L501.6710, L504.2610, L100.9950, L100.0100 ####[facility] [address] [place], [address] GAMMA GLOBULIN 1.2 g/dL Normal 0.4-1.8 [facility] Comment on above: Order Comment: N Performed By: #### L 500.4050, L3000.0375, L3100.3425, L101.9900, L501.6710, L504.2610, L100.9950, L100.0100 ####[facility] [address] [place], [place], [phone] Globulin (S) [Mass/Vol] 3.0 g/dL Normal 2.2-3.9 [facility] Comment on above: Order Comment: N Performed By: #### L 500.4050, L3000.0375, L3100.3425, L101.9900, L501.6710, L504.2610, L100.9950, L100.0100 ####[facility] [address] [place], [address] NEISHA RESULT,S Comment Normal . [facility] Comment on above: Order Comment: N Result Comment: No m onoclonality detected. Performed By: #### L 500.4050, L3000.0375, L3100.3425, L101.9900, L501.6710, L504.2610, L100.9950, L100.0100 ####[facility] [address] [place], [address] IMMUNOGLOB A QN 155 mg/dL Normal 87-352 [facility] Comment on above: Order Comment: N Performed By: #### L 500.4050, L3000.0375, L3100.3425, L101.9900, L501.6710, L504.2610, L100.9950, L100.0100 ####[facility] [address] [place], [address] IMMUNOGLOB G QN 1281 mg/dL Normal 586-1602 [facility] Comment on above: Order Comment: N Performed By: #### L 500.4050, L3000.0375, L3100.3425, L101.9900, L501.6710, L504.2610, L100.9950, L100.0100 ####[facility] [address] [place], [address] IMMUNOGLOB M QN 149 mg/dL Normal 26-217 [facility] Comment on above: Order Comment: N Performed By: #### L 500.4050, L3000.0375, L3100.3425, L101.9900, L501.6710, L504.2610, L100.9950, L100.0100 ####[facility] [address] [place], [address] M-Panchito Not Observed Normal Not Observed [facility] Comment on above: Order Comment: N Performed By: #### L 500.4050, L3000.0375, L3100.3425, L101.9900, L501.6710, L504.2610, L100.9950, L100.0100 ####[facility] [address] [place], [address] NOTE: Comment Normal . [facility] Comment on above: Order Comment: N Result Comment: Prot ein electrophoresis scan will follow via computer, mail, or fish agent delivery. Performed By: #### L 500.4050, L3000.0375, L3100.3425, L101.9900, L501.6710, L504.2610, L100.9950, L100.0100 ####[facility] [address] [place], [address] Protein [Mass/Vol] 6.9 g/dL Normal 6.0-8.5 [facility] Comment on above: Order Comment: N Performed By: #### L 500.4050, L3000.0375, L3100.3425, L101.9900, L501.6710, L504.2610, L100.9950, L100.0100 ####[facility] [address] [place], [address] ENTERIC PATHOGEN PANEL STOOL on 05-25-2024 EP PANEL Normal Reference Ran ge = Not Detected Nucleic acid amplification test method Not detected for Campylobacter group, Salmonella species, Shigella species, Vibrio Group, Yersinia enterocolitica, EHEC (Shiga Toxin 1, Shiga Toxin 2), Norovirus Gl/Gll, and Rotavirus A. Other common stool pathogens are not detected on this panel include: Aeromonas/Plesiomonas or parasites. Order testing for these organisms separately if suspected. This is an amplified DNA test which makes it both specific and sensitive. CAMPYLOBACTER Not Detected Norovirus Not Detected Rotavirus Not Detected Salmonella Not Detected Shiga Toxin Not Detected Shigella sp. Not Detected VIBRIO Not Detected Yersinia Not Detected Normal [facility] Comment on above: Performed By: #### M 600.5000, M7400.3302, M100.637, L101.0450, L3100.1950 #### [facility] [address] [place], [address] Absolute lymphocyte countOrd ered By: Alvarado Alfonso on 05-24-2024 Lymphocytes Auto (Unsp spec) [#/Vol] 2.12 10*3/uL 0.83-4.51 [facility] Absolute neutrophil countOrd ered By: Alvarado Alfonso on 05-24-2024 Neutrophils (Bld) [#/Vol] 3.3 10*3/uL 2.0-7.7 [facility] Addendum DocumentOrdered By: Alvarado Alfonso on 05-24-2024 Serum Immunofixation Comments Comment . [facility] Comment on above: Protein electrophore sis scan will follow via computer,mail, or fish agent delivery. Albumin Elph [Mass/Vol]Order ed By: Alvarado Alfonso on 05-24-2024 Albumin [Mass/Vol] 3.9 g/dL 2.9-4.4 [facility] Alpha 1 globulin Elph [Mass/ Vol]Ordered By: Alvarado Alfonso on 05-24-2024 Enpen-4-Djmqvlqxo (NEISHA) 0.2 g/dL 0.0-0.4 [facility] Yznrd-8-Sscrbksxk (NEISHA) 0.7 g/dL 0.4-1.0 [facility] Anion gap in Serum or Plasma Ordered By: Alvarado Alfonso on 05-24-2024 Anion gap [Moles/Vol] 12 mmol/L 5-15 [facility] Automated lymphocyte count a s percentage of total leukocytesOrdered By: Alvarado Alfonso on 05-24-2024 Lymphocytes/100 WBC Auto (Unsp spec) 35.5 % 19-41 [facility] BUN/creatinine ratioOrdered By: Alvarado Alfonso on 05-24-2024 Urea nitrogen/Creatinine [Mass ratio] 9.6 mg/mg Low 10-20 [facility] Basophil percentageOrdered B y: Alvarado Alfonso on 05-24-2024 Basophils/100 WBC (Bld) 0.7 % 0-1 [facility] Beta globulin Elph [Mass/Vol ]Ordered By: Alvarado Alfonso on 05-24-2024 Beta-Globulins (NEISHA) 0.9 g/dL 0.7-1.3 [facility] Bilirubin, totalOrdered By: Alvarado Alfonso on 05-24-2024 Bilirubin [Mass/Vol] 0.23 mg/dL 0.00-1.30 [facility] Blood microscopic examinatio n by malaria smear (nominal result)Ordered By: Alvarado Alfonso on 05-24-2024 Microscopic observation Malaria smear Nom (Bld) Positive High Negative [facility] CBC W/Diff, Automatedon 05-11 Absolute Lymph 2.12 X10 3/uL Normal 0.83-4.51 [facility] Comment on above: Performed By: #### L 500.4050, L3000.0375, L3100.3425, L101.9900, L501.6710, L504.2610, L100.9950, L100.0100 ####[facility] [address] [place], [address] Absolute Neut 3.3 X10 3/uL Normal 2.0-7.7 [facility] Comment on above: Performed By: #### L 500.4050, L3000.0375, L3100.3425, L101.9900, L501.6710, L504.2610, L100.9950, L100.0100 ####[facility] [address] [place], [address] Basophils/100 WBC (Bld) 0.7 % Normal 0-1 [facility] Comment on above: Performed By: #### L 500.4050, L3000.0375, L3100.3425, L101.9900, L501.6710, L504.2610, L100.9950, L100.0100 ####[facility] [address] [place], [address] Eosinophils/100 WBC (Bld) 1.8 % Normal 0-5 [facility] Comment on above: Performed By: #### L 500.4050, L3000.0375, L3100.3425, L101.9900, L501.6710, L504.2610, L100.9950, L100.0100 ####[facility] [address] [place], [address] Erythrocyte distribution width (RBC) [Ratio] 13.5 % Normal 11.6-14.6 [facility] Comment on above: Performed By: #### L 500.4050, L3000.0375, L3100.3425, L101.9900, L501.6710, L504.2610, L100.9950, L100.0100 ####[facility] [address] [place], [address] Hematocrit (Bld) [Volume fraction] 38.9 % Normal 37-47 [facility] Comment on above: Performed By: #### L 500.4050, L3000.0375, L3100.3425, L101.9900, L501.6710, L504.2610, L100.9950, L100.0100 ####[facility] [address] [place], [address] Hemoglobin (Bld) [Mass/Vol] 13.2 g/dL Normal 12.0-15.0 [facility] Comment on above: Performed By: #### L 500.4050, L3000.0375, L3100.3425, L101.9900, L501.6710, L504.2610, L100.9950, L100.0100 ####[facility] [address] [place], [address] IG% 0.300 Normal 0.0-0.9 [facility] Comment on above: Result Comment: IG% - Immature Granulocytes (promyelocytes, myelocytes and metamyelocytes) > 1% indicates that a LEFT SHIFT is Present. Performed By: #### L 500.4050, L3000.0375, L3100.3425, L101.9900, L501.6710, L504.2610, L100.9950, L100.0100 ####[facility] [address] [place], [address] Lymphocytes/100 WBC (Bld) 35.5 % Normal 19-41 [facility] Comment on above: Performed By: #### L 500.4050, L3000.0375, L3100.3425, L101.9900, L501.6710, L504.2610, L100.9950, L100.0100 ####[facility] [address] [place], [address] MCH (RBC) [Entitic mass] 28.8 pg Normal 27.0-32.0 [facility] Comment on above: Performed By: #### L 500.4050, L3000.0375, L3100.3425, L101.9900, L501.6710, L504.2610, L100.9950, L100.0100 ####[facility] [address] [place], [address] MCHC (RBC) [Mass/Vol] 33.9 g/dL Normal 32-36 [facility] Comment on above: Performed By: #### L 500.4050, L3000.0375, L3100.3425, L101.9900, L501.6710, L504.2610, L100.9950, L100.0100 ####[facility] [address] [place], [address] MCV (RBC) [Entitic vol] 84.7 fL Normal 81-99 [facility] Comment on above: Performed By: #### L 500.4050, L3000.0375, L3100.3425, L101.9900, L501.6710, L504.2610, L100.9950, L100.0100 ####[facility] [address] [place], [address] Monocytes/100 WBC (Bld) 6.9 % Normal 0-10 [facility] Comment on above: Performed By: #### L 500.4050, L3000.0375, L3100.3425, L101.9900, L501.6710, L504.2610, L100.9950, L100.0100 ####[facility] [address] [place], [address] Neutrophils/100 WBC (Bld) 54.8 % Normal 47-70 [facility] Comment on above: Performed By: #### L 500.4050, L3000.0375, L3100.3425, L101.9900, L501.6710, L504.2610, L100.9950, L100.0100 ####[facility] [address] [place], [address] Nucleated RBC (Bld) [#/Vol] 0 10*3/uL Normal 0-5 [facility] Comment on above: Performed By: #### L 500.4050, L3000.0375, L3100.3425, L101.9900, L501.6710, L504.2610, L100.9950, L100.0100 ####[facility] [address] [place], [address] Platelet mean volume (Bld) [Entitic vol] 9.4 fL Normal 6.2-12.0 [facility] Comment on above: Performed By: #### L 500.4050, L3000.0375, L3100.3425, L101.9900, L501.6710, L504.2610, L100.9950, L100.0100 ####[facility] [address] [place], [address] Platelets (Bld) [#/Vol] 357 10*3/uL Normal 150-450 [facility] Comment on above: Performed By: #### L 500.4050, L3000.0375, L3100.3425, L101.9900, L501.6710, L504.2610, L100.9950, L100.0100 ####[facility] [address] [place], [address] RBC (Bld) [#/Vol] 4.59 10*6/uL Normal 4.2-5.4 [facility] Comment on above: Performed By: #### L 500.4050, L3000.0375, L3100.3425, L101.9900, L501.6710, L504.2610, L100.9950, L100.0100 ####[facility] [address] [place], [address] RDW SD 41.6 fl Normal 35.1-43.9 [facility] Comment on above: Performed By: #### L 500.4050, L3000.0375, L3100.3425, L101.9900, L501.6710, L504.2610, L100.9950, L100.0100 ####[facility] [address] [place], [address] WBC (Bld) [#/Vol] 6.0 10*3/uL Normal 4.4-11.0 [facility] Comment on above: Performed By: #### L 500.4050, L3000.0375, L3100.3425, L101.9900, L501.6710, L504.2610, L100.9950, L100.0100 ####[facility] [address] [place], [address] CRPon 05-24-2024 C-REACTIVE PROT < 3.00 Normal 0.0-3.0 [facility] Comment on above: Performed By: #### L 500.4050, L3000.0375, L3100.3425, L101.9900, L501.6710, L504.2610, L100.9950, L100.0100 ####[facility] [address] [place], [address] CRP [Mass/Vol]Ordered By: Ra perico Alfonso on 05-24-2024 C-Reactive Protein Extended Range < 3.00 mg/L 0.0-3.0 [facility] Carbon dioxide, total [Moles /volume] in Central venous bloodOrdered By: Alvarado Alfonso on 05-24-2024 CO2 [Moles/Vol] 24.3 mmol/L 21.0-32.0 [facility] Chloride assayOrdered By: Ra perico Alfonso on 05-24-2024 Chloride [Moles/Vol] 102 mmol/L 98-108 [facility] Comprehensive Metabolic Prof ilon 05-24-2024 Albumin [Mass/Vol] 4.5 g/dL Normal 3.5-5.0 [facility] Comment on above: Performed By: #### L 500.4050, L3000.0375, L3100.3425, L101.9900, L501.6710, L504.2610, L100.9950, L100.0100 ####[facility] [address] [place], [place], [phone](877) Albumin/Globulin [Mass ratio] 1.6 {ratio} Normal 0.9-2.4 [facility] Comment on above: Performed By: #### L 500.4050, L3000.0375, L3100.3425, L101.9900, L501.6710, L504.2610, L100.9950, L100.0100 ####[facility] [address] [place], [place], [id number] ALK PHOS 62 U/L Normal 35-104 [facility] Comment on above: Performed By: #### L 500.4050, L3000.0375, L3100.3425, L101.9900, L501.6710, L504.2610, L100.9950, L100.0100 ####[facility] [address] [place], [place], [id number] ALT [Catalytic activity/Vol] 18 U/L Normal <=34 [facility] Comment on above: Performed By: #### L 500.4050, L3000.0375, L3100.3425, L101.9900, L501.6710, L504.2610, L100.9950, L100.0100 ####[facility] [address] [place], [place], [phone]) AST [Catalytic activity/Vol] 19 U/L Normal <=31 [facility] Comment on above: Performed By: #### L 500.4050, L3000.0375, L3100.3425, L101.9900, L501.6710, L504.2610, L100.9950, L100.0100 ####[facility] [address] [place], [address] Bilirubin [Mass/Vol] 0.23 mg/dL Normal 0.00-1.30 [facility] Comment on above: Performed By: #### L 500.4050, L3000.0375, L3100.3425, L101.9900, L501.6710, L504.2610, L100.9950, L100.0100 ####[facility] [address] [place], [address] BUN/CRE 9.6 RATIO Low 10-20 [facility] Comment on above: Performed By: #### L 500.4050, L3000.0375, L3100.3425, L101.9900, L501.6710, L504.2610, L100.9950, L100.0100 ####[facility] [address] [place], [address] Calcium [Mass/Vol] 9.3 mg/dL Normal 7.6-11.0 [facility] Comment on above: Performed By: #### L 500.4050, L3000.0375, L3100.3425, L101.9900, L501.6710, L504.2610, L100.9950, L100.0100 ####[facility] [address] [place], [address] Chloride [Moles/Vol] 102 mmol/L Normal 98-108 [facility] Comment on above: Performed By: #### L 500.4050, L3000.0375, L3100.3425, L101.9900, L501.6710, L504.2610, L100.9950, L100.0100 ####[facility] [address] [place], [address] CO2 [Moles/Vol] 24.3 mmol/L Normal 21.0-32.0 [facility] Comment on above: Performed By: #### L 500.4050, L3000.0375, L3100.3425, L101.9900, L501.6710, L504.2610, L100.9950, L100.0100 ####[facility] [address] [place], [place], [phone](495) Creatinine [Mass/Vol] 0.61 mg/dL Low 0.70-1.20 [facility] Comment on above: Performed By: #### L 500.4050, L3000.0375, L3100.3425, L101.9900, L501.6710, L504.2610, L100.9950, L100.0100 ####[facility] [address] [place], [place], [phone](412) GAP 12 Normal 5-15 [facility] Comment on above: Performed By: #### L 500.4050, L3000.0375, L3100.3425, L101.9900, L501.6710, L504.2610, L100.9950, L100.0100 ####[facility] [address] [place], [place], [phone](263) GFR/1.73 sq M.predicted among non-blacks MDRD (S/P/Bld) [Vol rate/Area] 127 mL/min/{1.73_m2} Normal >60 [facility] Comment on above: Result Comment: mL/m in/1.73m2 CKD-EPI Creatinine Equation (2020) Performed By: #### L 500.4050, L3000.0375, L3100.3425, L101.9900, L501.6710, L504.2610, L100.9950, L100.0100 ####[facility] [address] [place], [place], [phone] Globulin (S) [Mass/Vol] 2.8 g/dL Normal 2.2-4.2 [facility] Comment on above: Performed By: #### L 500.4050, L3000.0375, L3100.3425, L101.9900, L501.6710, L504.2610, L100.9950, L100.0100 ####[facility] [address] [place], [address] Glucose [Mass/Vol] 78 mg/dL Normal 70-99 [facility] Comment on above: Performed By: #### L 500.4050, L3000.0375, L3100.3425, L101.9900, L501.6710, L504.2610, L100.9950, L100.0100 ####[facility] [address] [place], [address] Potassium [Moles/Vol] 3.6 mmol/L Normal 3.3-5.1 [facility] Comment on above: Performed By: #### L 500.4050, L3000.0375, L3100.3425, L101.9900, L501.6710, L504.2610, L100.9950, L100.0100 ####[facility] [address] [place], [address] Sodium [Moles/Vol] 138 mmol/L Normal 133-145 [facility] Comment on above: Performed By: #### L 500.4050, L3000.0375, L3100.3425, L101.9900, L501.6710, L504.2610, L100.9950, L100.0100 ####[facility] [address] [place], [address] T PROT 7.3 g/dL Normal 5.9-8.4 [facility] Comment on above: Performed By: #### L 500.4050, L3000.0375, L3100.3425, L101.9900, L501.6710, L504.2610, L100.9950, L100.0100 ####[facility] [address] [place], [place], [id number] Urea nitrogen [Mass/Vol] 6 mg/dL Normal 4-19 [facility] Comment on above: Performed By: #### L 500.4050, L3000.0375, L3100.3425, L101.9900, L501.6710, L504.2610, L100.9950, L100.0100 ####[facility] [address] [place], [place], [id number] Eosinophil percentageOrdered By: Alvarado Alfonso on 05-24-2024 Eosinophils/100 WBC (Bld) 1.8 % 0-5 [facility] Erythrocyte Sed Rateon 05-24 SED RATE 1 mm/hr Normal 0-30 [facility] Comment on above: Performed By: #### L 500.4050, L3000.0375, L3100.3425, L101.9900, L501.6710, L504.2610, L100.9950, L100.0100 ####[facility] [address] [place], [place], [phone] Erythrocyte distribution wid th ratioOrdered By: Alvarado Alfonso on 05-24-2024 Erythrocyte distribution width (RBC) [Ratio] 13.5 % 11.6-14.6 [facility] Erythrocyte distribution wid th standard deviationOrdered By: Alvarado Alfonso on 05-24-2024 Erythrocyte distribution width (RBC) [Entitic vol] 41.6 fL 35.1-43.9 [facility] Erythrocyte distribution width (RBC) [Ratio] 41.6 fl 35.1-43.9 [facility] Erythrocyte sedimentation ra teOrdered By: Alvarado Alfonso on 05-24-2024 ESR (Bld) [Velocity] 1 mm/h 0-30 [facility] GFR/1.73 sq M.predicted hollis g non-blacks MDRD (S/P/Bld) [Vol rate/Area]Ordered By: Alvarado Alfonso on 05-24-2024 Estimated GFR (MDRD) Non-Af Amer 127 >60 [facility] Comment on above: mL/min/1.73m2 CKD-EP I Creatinine Equation (2020) Gamma globulin Elph [Mass/Vo l]Ordered By: Alvarado Alfonso on 05-24-2024 Gamma Globulins (NEISHA) 1.2 g/dL 0.4-1.8 [facility] Giardia lamblia antigen assa y by enzyme immunoassayOrdered By: Alvarado Alfonso on 05-24-2024 Giardia Antigen (JACK) [facility] Glomerular filtration rate ( GFR) estimation/1.73 sq m using serum, plasma, or whole bOrdered By: Alvarado Alfonso on 05-24-2024 GFR/1.73 sq M.predicted among non-blacks MDRD (S/P/Bld) [Vol rate/Area] 127 mL/min/{1.73_m2} >60 [facility] Comment on above: mL/min/1.73m2 CKD-EP I Creatinine Equation (2020) H. pylori Ag IA Ql (Stl)Orde red By: Alvarado Alfonso on 05-24-2024 Stool Helicobacter pylori Antigen Negative Negative [facility] Comment on above: Performed at: [place] [id number] Director: Seth Dubon PhD, Phone: [phone] HBV surface Ag IA QlOrdered By: Alvarado Alfonso on 05-24-2024 Hepatitis B Surface Antigen Negative Negative [facility] Hematocrit Auto (Bld) [Volum e fraction]Ordered By: Alvarado Alfonso on 05-24-2024 Hematocrit (Bld) [Volume fraction] 38.9 % 37-47 [facility] Hemoglobin (Reticulocytes) [ Entitic mass]Ordered By: Alvarado Alfonso on 05-24-2024 Reticulocyte Hemoglobin Equivalent 34.3 pg 30-35 [facility] Hemoglobin measurementOrdere d By: Alvarado Alfonso on 05-24-2024 Hemoglobin (Bld) [Mass/Vol] 13.2 g/dL 12.0-15.0 [facility] Hepatitis A virus IgM antibo dy assayOrdered By: Alvarado Alfonso on 05-24-2024 Hepatitis A IgM Antibody Negative Negative [facility] Comment on above: A negative anti-HAV IgM result suggests no recent orcurrent HAV infection. Hepatitis B virus core IgM a ntibody assayOrdered By: Alvarado Alfonso on 05-24-2024 Hepatitis B Core IgM Antibody Negative Negative [facility] Hepatitis C virus antibody a ssayOrdered By: Alvarado Alfonso on 05-24-2024 Hepatitis C Antibody (EIA) Non-Reactive Non Reactive [facility] IgA [Mass/Vol]Ordered By: Ra perico Alfonso on 05-24-2024 Immunoglobulin A 155 mg/dL 87-352 [facility] IgG [Mass/Vol]Ordered By: Ra perico Alfonso on 05-24-2024 Immunoglobulin G 1281 mg/dL 586-1602 [facility] Immature granulocytes/100 WB C Auto (Bld)Ordered By: Alvarado Alfonso on 05-24-2024 Immature granulocytes/100 WBC (Bld) 0.300 % 0.0-0.9 [facility] Comment on above: IG% - Immature Granu locytes (promyelocytes, myelocytes and metamyelocytes) > 1% indicates that a LEFT SHIFT is Present. Immature reticulocyte fracti onOrdered By: Alvarado Alfonso on 05-24-2024 Immature Reticulocyte Fraction 3.00 % 3.00-15.90 [facility] Immunoglobulin M measurement Ordered By: Alvarado Alfonso on 05-24-2024 Immunoglobulin M 149 mg/dL 26-217 [facility] Interpretation IEP [Interp]O rdered By: Alvarado Alfonso on 05-24-2024 Immunofixation Screen Comment . [facility] Comment on above: No monoclonality det ected. Interpretation of serum or p lasma protein pattern by immunofixation (narrative resultOrdered By: Alvarado Alfonso on 05-24-2024 Protein Fractions Immunofixation Ajit [Interp] Not Observed g/dL Not Observed [facility] LDHon 05-24-2024 LDH 151 U/L Normal 84-246 [facility] Comment on above: Order Comment: 1 Performed By: #### L 500.4050, L3000.0375, L3100.3425, L101.9900, L501.6710, L504.2610, L100.9950, L100.0100 ####[facility] [id number] [place], [address] Laboratory - Chemistry and C hemistry - challengeOrdered By: Alvarado Alfonso on 05-24-2024 AST [Catalytic activity/Vol] 19 U/L <32 [facility] Lactate dehydrogenase (LDH) measurementOrdered By: Alvarado Alfonso on 05-24-2024 LDH [Catalytic activity/Vol] 151 U/L 84-246 [facility] Lymphocytes Auto (Unsp spec) [#/Vol]Ordered By: Alvarado Alfonso on 05-24-2024 Lymphocytes (Bld) [#/Vol] 2.12 10*3/uL 0.83-4.51 [facility] Lymphocytes/100 WBC Auto (Un sp spec)Ordered By: Alvarado Alfonso on 05-24-2024 Lymphocytes/100 WBC (Bld) 35.5 % 19-41 [facility] MCV (mean corpuscular volume ) determinationOrdered By: Alvarado Alfonso on 05-24-2024 MCV (RBC) [Entitic vol] 84.7 fL 81-99 [facility] Mean corpuscular hemoglobin (MCH) determinationOrdered By: Alvaradojohn Alfonso on 05-24-2024 MCH (RBC) [Entitic mass] 28.8 pg 27.0-32.0 [facility] Mean corpuscular hemoglobin concentration (MCHC) determinationOrdered By: Alavrado Alfonso on 05-24-2024 MCHC (RBC) [Mass/Vol] 33.9 g/dL 32-36 [facility] Mean platelet volume determi nationOrdered By: Alvarado Alfonso on 05-24-2024 Platelet mean volume (Bld) [Entitic vol] 9.4 fL 6.2-12.0 [facility] Microscopic observation [place] oralia smear Nom (Bld)Ordered By: Alvarado Alfonso on 05-24-2024 Malaria Smear Interpretation Positive High Negative [facility] Monocyte percentageOrdered B y: Alvarado Alfonso on 05-24-2024 Monocytes/100 WBC (Bld) 6.9 % 0-10 [facility] Neutrophil percentageOrdered By: Alvarado Alfonso on 05-24-2024 Neutrophils/100 WBC (Bld) 54.8 % 47-70 [facility] No Panel InformationOrdered By: Alvarado Alfonso on 05-24-2024 Addendum Document Comment . [facility] Comment on above: Protein electrophore sis scan will follow via computer,mail, or fish agent delivery. Hepatitis C Antibody Comment Comment . [facility] Comment on above: Not infected with HC V unless early or acute infection issuspected (which may be delayed in an immunocompromisedindividual), or other evidence exists to indicate HCVinfection.Performed at: [facility] [id number] Director: Seth Dubon PhD, Phone: [phone] Nucleated red blood cell per centageOrdered By: Alvarado Alfonso on 05-24-2024 Nucleated RBC/100 WBC (Bld) [Ratio] 0 % 0-5 [facility] Ova and parasitesOrdered By: Alvarado Alfonso on 05-24-2024 Ova and Parasites [facility] Platelet countOrdered By: Ra perico Alfonso on 05-24-2024 Platelets (Bld) [#/Vol] 357 10*3/uL 150-450 [facility] Potassium (Unsp spec) [Mass/ Vol]Ordered By: Alvarado Alfonso on 05-24-2024 Potassium [Moles/Vol] 3.6 mmol/L 3.3-5.1 [facility] Potassium measurement (mass/ volume)Ordered By: Alvarado Alfonso on 05-24-2024 Potassium (Unsp spec) [Mass/Vol] 3.6 mmol/L 3.3-5.1 [facility] Protein Fractions Immunofixa tion Ajit [Interp]Ordered By: Alvarado Alfonso on 05-24-2024 M-Panchito (NEISHA) Not Observed g/dL Not Observed [facility] RBC Auto (Bld) [#/Vol]Ordere d By: Alvarado Alfonso on 05-24-2024 RBC (Bld) [#/Vol] 4.59 10*6/uL 4.2-5.4 [facility] Retic Panelon 05-24-2024 IM RET FRACTION 3.00 Normal 3.00-15.90 [facility] Comment on above: Performed By: #### L 500.4050, L3000.0375, L3100.3425, L101.9900, L501.6710, L504.2610, L100.9950, L100.0100 ####[facility] [address] [place], [place], [id number] RET-HE 34.3 pg Normal 30-35 [facility] Comment on above: Performed By: #### L 500.4050, L3000.0375, L3100.3425, L101.9900, L501.6710, L504.2610, L100.9950, L100.0100 ####[facility] [address] [place], [place], [phone] Retic Count 1.15 Normal 0.5-1.5 [facility] Comment on above: Performed By: #### L 500.4050, L3000.0375, L3100.3425, L101.9900, L501.6710, L504.2610, L100.9950, L100.0100 ####[facility] [address] [place], [place], [phone] Reticulocyte hemoglobin equi valent (RET-He) measurementOrdered By: Alvarado Alfonso on 05-24-2024 Hemoglobin (Reticulocytes) [Entitic mass] 34.3 pg 30-35 [facility] Reticulocytes Auto (Bld) [#/ Vol]Ordered By: Alvarado Alfonso on 05-24-2024 Reticulocyte Count 1.15 % 0.5-1.5 [facility] Reticulocytes/100 RBC (Bld) 1.15 % 0.5-1.5 [facility] Serum albumin/globulin ratio Ordered By: Alvarado Alfonso on 05-24-2024 Albumin/Globulin (NEISHA) 1.4 0.7-1.7 [facility] Serum creatinine measurement (mass/volume)Ordered By: Alvarado Alfonso on 05-24-2024 Creatinine [Mass/Vol] 0.61 mg/dL Low 0.70-1.20 [facility] Serum globulin measurement ( mass/volume)Ordered By: Alvarado Alfonso on 05-24-2024 Globulin (S) [Mass/Vol] 3.0 g/dL 2.2-3.9 [facility] Serum glucose measurement (m ass/volume)Ordered By: Alvarado Alfonso on 05-24-2024 Glucose [Mass/Vol] 78 mg/dL 70-99 [facility] Serum or plasma C reactive p rotein measurement (mass/volume)Ordered By: Alvarado Alfonso on 05-24-2024 CRP [Mass/Vol] mg/L 0.0-3.0 [facility] Serum or plasma IgA measurem ent (mass/volume)Ordered By: Alvarado Alfonso on 05-24-2024 IgA [Mass/Vol] 155 mg/dL 87-352 [facility] Serum or plasma IgG measurem ent (mass/volume)Ordered By: Alvarado Alfonso on 05-24-2024 IgG [Mass/Vol] 1281 mg/dL 586-1602 [facility] Serum or plasma alanine riddle otransferase (ALT) measurementOrdered By: Alvarado Alfonso on 05-24-2024 ALT [Catalytic activity/Vol] 18 U/L <35 [facility] Serum or plasma albumin dominick urement (mass/volume)Ordered By: Alvarado Alfonso on 05-24-2024 Albumin [Mass/Vol] 4.5 g/dL 3.5-5.0 [facility] Serum or plasma albumin/glob ulin mass ratioOrdered By: Alvarado Alfonso on 05-24-2024 Albumin/Globulin [Mass ratio] 1.6 {ratio} 0.9-2.4 [facility] Serum or plasma alkaline justice sphatase measurementOrdered By: Alvarado Alfonso on 05-24-2024 ALP [Catalytic activity/Vol] 62 U/L 35-104 [facility] Serum or plasma alpha 1 glob ulin measurement by electrophoresis (mass/volume)Ordered By: Alvarado Alfonso on 05-24-2024 Alpha 1 globulin Elph [Mass/Vol] 0.2 g/dL 0.0-0.4 [facility] Alpha 1 globulin Elph [Mass/Vol] 0.7 g/dL 0.4-1.0 [facility] Serum or plasma beta globuli n measurement by electrophoresis (mass/volume)Ordered By: Alvarado Alfonso on 05-24-2024 Beta globulin Elph [Mass/Vol] 0.9 g/dL 0.7-1.3 [facility] Serum or plasma calcium dominick urement (mass/volume)Ordered By: Alvarado Alfonso on 05-24-2024 Calcium [Mass/Vol] 9.3 mg/dL 7.6-11.0 [facility] Serum or plasma gamma globul in measurement by electrophoresis (mass/volume)Ordered By: Alvarado Alfonso on 05-24-2024 Gamma globulin Elph [Mass/Vol] 1.2 g/dL 0.4-1.8 [facility] Serum or plasma hepatitis B virus surface antigen detection by immunoassayOrdered By: Alvarado Alfonso on 05-24-2024 HBV surface Ag IA Ql Negative Negative [facility] Serum or plasma immunoelectr ophoresis interpretation (nominal result)Ordered By: Alvarado Alfnoso on 05-24-2024 Interpretation IEP [Interp] Comment . [facility] Comment on above: No monoclonality det ected. Serum or plasma protein dominick urement (mass/volume)Ordered By: Alvarado Alfonso on 05-24-2024 Protein [Mass/Vol] 6.9 g/dL 6.0-8.5 [facility] Serum or plasma urea nitroge n measurement (mass/volume)Ordered By: Alvarado Alfonso on 05-24-2024 Urea nitrogen [Mass/Vol] 6 mg/dL 4-19 [facility] Sodium levelOrdered By: Kimmie Yarbrough on 05-24-2024 Sodium [Moles/Vol] 138 mmol/L 133-145 [facility] Stool Helicobacter pylori an tigen detection by immunoassayOrdered By: Alvarado Alfonso on 05-24-2024 H. pylori Ag IA Ql (Stl) Negative Negative [facility] Comment on above: Performed at: [address] [id number] Director: Seth Dubon PhD, Phone: [phone] Stool enteric pathogen panel by probe and target amplification methodOrdered By: Alvarado Alfonso on 05-24-2024 Enteric Bacteriology [facility] Total proteinOrdered By: Elliot Alfonso on 05-24-2024 Protein [Mass/Vol] 7.3 g/dL 5.9-8.4 [facility] White blood cell (WBC) count Ordered By: Alvarado Alfonso on 05-24-2024 WBC (Bld) [#/Vol] 6.0 10*3/uL 4.4-11.0 [facility] HISTORY PHYSICALon HISTORY PHYSICAL HNO ID: [id number] Author: LEEANN HOLLOWAY APRN.TROUBLE CLERK Service: ? 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 Alfonso Iron deficiency Assessment: hg remains stable, however her iron studies show worsening iron deficiency after iron infusions. Following hematology with recent follow up, wanting her to start a PPI and give additional IV iron sucrose infusions with slower rate per Armani Trimble PA-C documentation 05/08/2024. Gastroesophageal reflux disease with esophagitis without hemorrhage Assessment: recently started PPI Intermittent asthma without complication Assessment: hx allergy induced, wheezy with URI's otherwise no need for inhalers per pt. More symptomatic during childhood, improved as an adult MIKAL (obstructive sleep apnea) Assessment: c/w CPAP Mast cell disease Assessment: under well control per pt, on rx, avoids triggers Seizure-like activity (HCC) Assessment: hx, no recent issues POTS (postural orthostatic tachycardia syndrome) Assessment: symptoms well controlled with electrolyte and fluid replacement Palpitations Assessment: hx, asymptomatic currently, hx full cardiac worke up 2021 in epic Scan on 05/04/2021 9:21 AM by Provider, JULEE ReedC: Miscellaneous Clinical Documents 2021 [facility] Asthma Assessment: Neural foraminal stenosis of cervical spine Assessment: TBI/concussion x2 necessitating cervical decompression and laminectomy/foraminotomy, and post-concussive syndrome 2020 Anxiety Assessment: hx, situational ANESTHESIA FINDINGS: Intubation History: No history of difficult intubation Significant Anesthesia Considerations: potential postop nausea/vomiting potential slow emergence Airway History: No history of difficult airway Hensley Activity Status Index: METS: Climb a flight of stairs or walk up a hill (5.50 METs) DASI Score: 5.5 Patient denies any chest pain or undue shortness of breath with the above physical activity. Clinical Frailty Scale: 1. Very fit STOP-Bang Score: Denies snoring loudly Denies feeling tired, fatigued, or sleepy during the daytime Has not been observed to stop breathing or choking/gasping during sleep Denies having high blood pressure BMI less than or equal to 35 kg/m2 Patient 50 years old or younger Does not have a large neck Non-male patient STOP-Bang Score: 0 [id number] Score: Age: <65 Sex: female CHF history: No Hypertension history: No Stroke/TIA/thromboembolism history: No Vascular disease history: No Diabetes history: No [id number]-XILc Score: 1 ARISCAT Score: Age: <=50 Preoperative SpO2: >=96% Respiratory infection in the last month: No Preoperative anemia: No Surgical incision: peripheral Duration of surgery: <2 hrs Emergency procedure: No ARISCAT Score: 0 I - PHYSICAL EVALUATION AIRWAY Patient intubated: No. Tracheostomy tube not present Mallampati: II. TM distance: >3 FB. Neck ROM: full ROM without neurological symptoms. Mouth opening: adequate. Short neck: no. Thick neck: no Gonzalez present: no Lip Bite Test: I Microretrognathia/Micronagt hia/Recessed Chin: No DENTAL Dental findings: teeth intact. II - ANESTHESIA PLAN Anesthetic Plan: other Beta Jj Monitoring Plan Post Procedure Analgesic Plan Prepared for Surgery: optimally prepared for surgery. CONSULTS: Patient does not require consults for optimization at this time Planned Anesthetic: other anesthesia choice The Following Tests/Procedures Have Been Initiated: No orders of the defined types were placed in this encounter. REASON FOR VISIT: Gladys Sarah is a 24 year old female who is scheduled for Procedure(s): NEUROPLASTY ULNAR NERVE AT ELBOW (Left) LENGTHENING FLEXOR OR EXTENSOR TENDON, FOREARM AND/OR WRIST, SINGLE (Left) TRANSPOSITION NERVE ULNAR (Left) at the request of Dr. Raghu Dong for consultation. My final recommendation will be communicated back to the requesting physician by way of shared medical record or letter. Subjective The patient has the following: COVID-19 Immunization Status Current Care Gaps Covid-19 Vaccine (2023- season) Never done No completion, postpone, frequency change, or communication history exists for this topic. CHIEF COMPLAINT: Pre-op exam HPI: Gladys Sarah is a 24 year old seen for PAC due to scheduled above surgery because of cubital tunnel syndrome, left. 04/10/2024, Dr. Raghu Dong HPI: Ms. Sarah is a left hand dominant 23 year old female who prese (more content not included)... Normal [facility] L3410.9998on 05-08-2024 [facility] Misc. COMMENT Normal . [facility] Comment on above: Order Comment: [id number] 2CELIAC HLA EDTA RT Result Comment: Test Ordered: [id number] Celiac Disease HLA DQ Assoc. DQ2 (DQA1 0501/0505,DQB1 02XX) Negative 2Q Reference Range: . DQ8 (DQA1 03XX,DQB1 0302) Negative 2Q Reference Range: . Final Results: DQB1*06:02:01G,- DQA1*01:02:01G,- The patient is not positive for any of the HLA DQ risk alleles. Celiac disease risk from the HLA DQA/DQB genotype is approximately 1:2518 (<0.04%). This result essentially rules out celiac disease. HLA allele interpretation for all loci based on IMGT/HLA database version 3.53.0 This test was developed and its performance characteristics determined by [facility]. It has not been cleared or approved by the Food and Drug Administration. The FDA has determined that such clearance or approval is not necessary. [facility] CLIA ID Number [id number] Greater than 95% of celiac patients are positive for either DQ2 or DQ8 (Sadie and Malik, (1993) Gastroenterology [phone]). However these antigens may also be present in patients who do not have Celiac disease. HLA NGS Methodology Comment 2Q Reference Range: . HLA results were obtained using Next Generation Sequencing (NGS). Supplemental procedures based on sequence based typing (SBT) and/or sequence specific oligonucleotide probes (SSOP) may be used as needed to obtain the required resolution. If you have questions, please call HLA customer service at or email at [email or web address]. Performed at: - [facility] [address] [place], [place] [id number] Poultry Farmer: Erin Grace PhD, Phone: [phone] Performed at: - [address] [id number] Poultry Farmer: Seth Dubon PhD, Phone: [phone] Performed By: #### L 3410.1000, L3410.0900, L3410.9998, L5500.0300, L5500.0550, L3200.1100, L3300.1800, L3100.3425 ####[facility] [address] [place], [address] L3410.9998on 05-07-2024 [facility] COMMENT Normal . [facility] Comment on above: Order Comment: [id number] 3GLUTEN SES TIGER SERUM RT Result Comment: Test Ordered: [id number] Gluten Sensitivity Antibodies t-Transglutaminase (tTG) IgA 3 U/mL BN Reference Range: 0-3 Negative 0 - 3 Weak Positive 4 - 10 Positive >10 Tissue Transglutaminase (tTG) has been identified as the endomysial antigen. Studies have demonstr- ated that endomysial IgA antibodies have over 99% specificity for gluten sensitive enteropathy. Deamidated Gliadin Abs, IgG 3 units BN Reference Range: 0-19 Negative 0 - 19 Weak Positive 20 - 30 Moderate to Strong Positive >30 Information: Note: BN [place] continues Reference Range: . Antigliadin IgG (nikolski) 22 [H ] units BN Reference Range: 0-19 Negative 0 - 19 Weak Positive 20 - 30 Moderate to Strong Positive >30 Note: Comment BN Reference Range: . Suggestive of nonceliac gluten sensitivity. Performed at: [facility] [address] [id number] Poultry Farmer: Janey Ramos MD, Phone: [phone] Performed at: - [address] [id number] Poultry Farmer: Seth Dubon PhD, Phone: [phone] Performed By: #### L 3410.9998 ####[facility] [address] [place], [place], [address] Allergen, Mini-Raston 2024 A. ALTERNATA <0.10 Normal Class 0 [facility] Comment on above: Performed By: #### L 3410.1000, L3410.0900, L3410.9998, L5500.0300, L5500.0550, L3200.1100, L3300.1800, L3100.3425 ####[facility] [address] [place], [place], [phone] BERMUDA GRASS <0.10 Normal Class 0 [facility] Comment on above: Performed By: #### L 3410.1000, L3410.0900, L3410.9998, L5500.0300, L5500.0550, L3200.1100, L3300.1800, L3100.3425 ####[facility] [address] [place], [place], [phone] [place] <0.10 Normal Class 0 [facility] Comment on above: Performed By: #### L 3410.1000, L3410.0900, L3410.9998, L5500.0300, L5500.0550, L3200.1100, L3300.1800, L3100.3425 ####[facility] [address] [place], [place], [phone] CAT HAIR/DANDER <0.10 Normal Class 0 [facility] Comment on above: Performed By: #### L 3410.1000, L3410.0900, L3410.9998, L5500.0300, L5500.0550, L3200.1100, L3300.1800, L3100.3425 ####[facility] [address] [place], [place], [phone] COMMENT Comment Normal . [facility] Comment on above: Result Comment: Maxwell kumar of Specific IgE Class Description of Class ----- < 0.10 0 Negative 0.10 - 0.31 0/I Equivocal/Low 0.32 - 0.55 I Low 0.56 - 1.40 II Moderate 1.41 - 3.90 III High 3.91 - 19.00 IV Very High 19.01 - 100.00 V Very High >100.00 Very High Performed By: #### L 3410.1000, L3410.0900, L3410.9998, L5500.0300, L5500.0550, L3200.1100, L3300.1800, L3100.3425 ####[facility] [address] [place], [place], [phone] D FARINAE MITE <0.10 Normal Class 0 [facility] Comment on above: Performed By: #### L 3410.1000, L3410.0900, L3410.9998, L5500.0300, L5500.0550, L3200.1100, L3300.1800, L3100.3425 ####[facility] [address] [place], [place], [phone] D PTERONYSSINUS <0.10 Normal Class 0 [facility] Comment on above: Performed By: #### L 3410.1000, L3410.0900, L3410.9998, L5500.0300, L5500.0550, L3200.1100, L3300.1800, L3100.3425 ####[facility] [address] [place], [place], [phone] DOG EPITHELIA <0.10 Normal Class 0 [facility] Comment on above: Performed By: #### L 3410.1000, L3410.0900, L3410.9998, L5500.0300, L5500.0550, L3200.1100, L3300.1800, L3100.3425 ####[facility] [address] [place], [place], [phone] ELMAMER WHITE <0.10 Normal Class 0 [facility] Comment on above: Performed By: #### L 3410.1000, L3410.0900, L3410.9998, L5500.0300, L5500.0550, L3200.1100, L3300.1800, L3100.3425 ####[facility] [address] [place], [place], [phone] Mouse Urine <0.10 Normal Class 0 [facility] Comment on above: Result Comment: Perf ormed at: BN - [facility] [id number] Poultry Farmer: Janey Ramos MD, Phone: [phone] Performed By: #### L 3410.1000, L3410.0900, L3410.9998, L5500.0300, L5500.0550, L3200.1100, L3300.1800, L3100.3425 ####[facility] [address] [place], [place], [phone] OAK, WHITE <0.10 Normal Class 0 [facility] Comment on above: Performed By: #### L 3410.1000, L3410.0900, L3410.9998, L5500.0300, L5500.0550, L3200.1100, L3300.1800, L3100.3425 ####[facility] [address] [place], [place], [phone] MARCELINA LE <0.10 Normal Class 0 [facility] Comment on above: Performed By: #### L 3410.1000, L3410.0900, L3410.9998, L5500.0300, L5500.0550, L3200.1100, L3300.1800, L3100.3425 ####[facility] [address] [place], [address] RAGWEED SH/COM <0.10 Normal Class 0 [facility] Comment on above: Performed By: #### L 3410.1000, L3410.0900, L3410.9998, L5500.0300, L5500.0550, L3200.1100, L3300.1800, L3100.3425 ####[facility] [address] [place], [address] L5500.0550on 05-04-2024 BEEF <0.10 Normal Class 0 [facility] Comment on above: Performed By: #### L 3410.1000, L3410.0900, L3410.9998, L5500.0300, L5500.0550, L3200.1100, L3300.1800, L3100.3425 ####[facility] [address] [place], [address] CHOCOLATE <0.10 Normal Class 0 [facility] Comment on above: Performed By: #### L 3410.1000, L3410.0900, L3410.9998, L5500.0300, L5500.0550, L3200.1100, L3300.1800, L3100.3425 ####[facility] [address] [place], [address] CODFISH 0.11 kU/L Abnormal Class 0/I [facility] Comment on above: Performed By: #### L 3410.1000, L3410.0900, L3410.9998, L5500.0300, L5500.0550, L3200.1100, L3300.1800, L3100.3425 ####[facility] [address] [place], [address] CORN <0.10 Normal Class 0 [facility] Comment on above: Performed By: #### L 3410.1000, L3410.0900, L3410.9998, L5500.0300, L5500.0550, L3200.1100, L3300.1800, L3100.3425 ####[facility] [address] [place], [address] EGG, WHOLE <0.10 Normal Class 0 [facility] Comment on above: Performed By: #### L 3410.1000, L3410.0900, L3410.9998, L5500.0300, L5500.0550, L3200.1100, L3300.1800, L3100.3425 ####[facility] [address] [place], [place], [phone]) MILK (COW) <0.10 Normal Class 0 [facility] Comment on above: Performed By: #### L 3410.1000, L3410.0900, L3410.9998, L5500.0300, L5500.0550, L3200.1100, L3300.1800, L3100.3425 ####[facility] [address] [place], [address] MUSSELS <0.10 Normal Class 0 [facility] Comment on above: Performed By: #### L 3410.1000, L3410.0900, L3410.9998, L5500.0300, L5500.0550, L3200.1100, L3300.1800, L3100.3425 ####[facility] [address] [place], [address] PEANUT <0.10 Normal Class 0 [facility] Comment on above: Performed By: #### L 3410.1000, L3410.0900, L3410.9998, L5500.0300, L5500.0550, L3200.1100, L3300.1800, L3100.3425 ####[facility] [address] [place], [address] PORK <0.10 Normal Class 0 [facility] Comment on above: Performed By: #### L 3410.1000, L3410.0900, L3410.9998, L5500.0300, L5500.0550, L3200.1100, L3300.1800, L3100.3425 ####[facility] [address] [place], [address] SALMON <0.10 Normal Class 0 [facility] Comment on above: Performed By: #### L 3410.1000, L3410.0900, L3410.9998, L5500.0300, L5500.0550, L3200.1100, L3300.1800, L3100.3425 ####[facility] [address] [place], [address] SHRIMP 0.16 kU/L Abnormal Class 0/I [facility] Comment on above: Performed By: #### L 3410.1000, L3410.0900, L3410.9998, L5500.0300, L5500.0550, L3200.1100, L3300.1800, L3100.3425 ####[facility] [address] [place], [address] SOYBEAN <0.10 Normal Class 0 [facility] Comment on above: Performed By: #### L 3410.1000, L3410.0900, L3410.9998, L5500.0300, L5500.0550, L3200.1100, L3300.1800, L3100.3425 ####[facility] [address] [place], [address] TUNA <0.10 Normal Class 0 [facility] Comment on above: Performed By: #### L 3410.1000, L3410.0900, L3410.9998, L5500.0300, L5500.0550, L3200.1100, L3300.1800, L3100.3425 ####[facility] [address] [place], [address] WHEAT <0.10 Normal Class 0 [facility] Comment on above: Performed By: #### L 3410.1000, L3410.0900, L3410.9998, L5500.0300, L5500.0550, L3200.1100, L3300.1800, L3100.3425 ####[facility] [address] [place], [place], [phone] 25(OH)D3 [facility] 25-hydroxyvitamin D3 [Mass/Vol] 28.2 ng/mL Low 31.0-80.0 [facility] Comment on above: Order Comment: Speci men Type: BLOOD SPECIMEN Ordering Facility: [facility] Address: [address] [place] [address] Result Comment: Clas sification of 25 [place] Vitamin D status: Deficiency/Insufficiency: < or = 30 ng/ml. Sufficiency/Optimal Levels: 31-80 ng/mL Toxicity: > 100 ng/mL. Test performed by chemiluminescent immunoassay. Performed By: #### 1 989-3 #### [facility] CLIA [id number] [address] [place] [address] [place] Anti-Parietal Cell AB, QNon 05-03-2024 ANTIPARIET CELL 41.4 Units High 0.0-20.0 [facility] Comment on above: Result Comment: Nega tive 0.0 - 20.0 Equivocal 20.1 - 24.9 Positive >24.9 Parietal Cell Antibodies are found in 90% of patients with pernicious anemia and 30% of first degree relatives with pernicious anemia. Performed By: #### L 3410.1000, L3410.0900, L3410.9998, L5500.0300, L5500.0550, L3200.1100, L3300.1800, L3100.3425 ####[facility] [address] [place], [place], [phone] Basic metabolic 2000 panelon 05-03-2024 Anion gap [Moles/Vol] 10 mmol/L Normal 8-15 [facility] Comment on above: Order Comment: Speci men Type: BLOOD SPECIMENOrdering Facility: [facility] Address: [address] [place], [place] [address] Performed By: #### 1 9123-9, 14400-2 ####[facility] RODNEY ALYFILOMENABRYA [id number] [place] [address] [place] Calcium [Mass/Vol] 9.6 mg/dL Normal 8.5-10.2 [facility] Comment on above: Order Comment: Speci men Type: BLOOD SPECIMENOrdering Facility: [facility] Address: [address] [place], [place] [address] Performed By: #### 1 9123-9, 65577-1 ####[facility] SUSANNECHRISTOPHERA [id number] [place] [address] [place] Chloride [Moles/Vol] 102 mmol/L Normal 98-107 [facility] Comment on above: Order Comment: Speci men Type: BLOOD SPECIMENOrdering Facility: [facility] Address: [address] [place], [place] [address] Performed By: #### 1 9123-9, 70150-1 ####[facility] SUSANNEDELCAMBRERIGOBERTOA [id number] [place] [address] [place] CO2 [Moles/Vol] 27 mmol/L Normal 22-30 [facility] Comment on above: Order Comment: Speci men Type: BLOOD SPECIMENOrdering Facility: [facility] Address: [address] [place] [address] Performed By: #### 1 9123-9, 52741-9 ####[facility] SUSANNEDELCAMBRENCLIA [id number] [place] [address] [place] Creatinine [Mass/Vol] 0.61 mg/dL Normal 0.58-0.96 [facility] Comment on above: Order Comment: Speci men Type: BLOOD SPECIMENOrdering Facility: [facility] Address: [address] [place] [address] Performed By: #### 1 9123-9, 13113-4 ####[facility] SPRINGSWNCLIA [id number] [place] [address] [place] Creatinine and Glomerular filtration rate.predicted panel (S/P/Bld) 127 mL/min/1.73m??? Normal >=60 [facility] Comment on above: Order Comment: Donna tong Type: BLOOD SPECIMENOrdering Facility: [facility] Address: [address] [place] [address] Result Comment: Ruthann mated Glomerular Filtration Rate (eGFR) is calculated using the 2020 CKD-EPI creatinine equation. This equation utilizes serum creatinine, sex, and age as parameters. The creatinine assay has traceable calibration to isotope dilution-mass spectrometry. Refer to KDIGO guidelines for clinical interpretation. In patients with unstable renal function, e.g. those with acute kidney injury, the eGFR may not accurately reflect actual GFR. Performed By: #### 1 9123-9, 37840-1 ####[facility] HOSPITALLIA [id number] [place] [address] [place] Glucose [Mass/Vol] 83 mg/dL Normal 74-99 [facility] Comment on above: Order Comment: Donna tong Type: BLOOD SPECIMENOrdering Facility: [facility] Address: [address] [place] [address] Result Comment: The [place] Diabetes Association (ADA) provides guidance for cutoff values for fasting glucose and random glucose. The ADA defines fasting as no caloric intake for at least 8 hours. Fasting plasma glucose results between 100 to 125 mg/dL indicate increased risk for diabetes (prediabetes). Fasting plasma glucose results greater than or equal to 126 mg/dL meet the criteria for diagnosis of diabetes. In the absence of unequivocal hyperglycemia, results should be confirmed by repeat testing. In a patient with classic symptoms of hyperglycemia or hyperglycemic crisis, random plasma glucose results greater than or equal to 200 mg/dL meet the criteria for diagnosis of diabetes. Reference: Standards of Medical Care in Diabetes 2016, [place] [employer] Association. Diabetes Care. 2016.39(Suppl 1). Performed By: #### 1 9123-9, 11097-8 ####[facility] COR[facility] SPRINGSWANDALIA [id number] [place] [address] [place] Potassium [Moles/Vol] 3.6 mmol/L Low 3.7-5.1 [facility] Comment on above: Order Comment: Speci men Type: BLOOD SPECIMENOrdering Facility: [facility] Address: [address] [place] [address] Performed By: #### 1 9123-9, 46187-0 ####[facility] CENTERNEGRITO [id number] [place] [address] [place] Sodium [Moles/Vol] 139 mmol/L Normal 136-144 [facility] Comment on above: Order Comment: Speci men Type: BLOOD SPECIMENOrdering Facility: [facility] Address: [address] [place] [address] Performed By: #### 1 9123-9, 95232-6 ####[facility] HOSPITALRadha [id number] [place] [address] [place] Urea nitrogen [Mass/Vol] 6 mg/dL Low 7-21 [facility] Comment on above: Order Comment: Speci men Type: BLOOD SPECIMENOrdering Facility: [facility] Address: [address] [place] [address] Performed By: #### 1 9123-9, 44402-1 ####[facility] ONT[facility]IO HOSPITALAYAN [id number] [place] [address] [place] CBC W Auto Differential pane l (Bld)on 05-03-2024 Basophils (Bld) [#/Vol] 0.04 10*3/uL Normal <0.11 [facility] Comment on above: Order Comment: Speci men Type: BLOOD SPECIMENOrdering Facility: [facility] Address: [address] [place] [address] Performed By: #### 5 7021-8 ####[facility] CENTERFILOMENAA [id number] [place] [address] [place] Basophils/100 WBC (Bld) 0.7 % Normal [facility] Comment on above: Order Comment: Speci men Type: BLOOD SPECIMENOrdering Facility: [facility] Address: [address] [place] [address] Performed By: #### 5 7021-8 ####[facility] [id number] [place] [address] [place] Differential cell count method Nom (Bld) Auto Normal [facility] Comment on above: Order Comment: Speci men Type: BLOOD SPECIMENOrdering Facility: [facility] Address: [address] [place] [address] Performed By: #### 5 7021-8 ####[facility] CENTERNCLI [id number] [place] [address] [place] Eosinophils (Bld) [#/Vol] 0.08 10*3/uL Normal <0.46 [facility] Comment on above: Order Comment: Speci men Type: BLOOD SPECIMENOrdering Facility: [facility] Address: [address] [place] [address] Performed By: #### 5 7021-8 ####[facility] [id number] [place] [address] [place] Eosinophils/100 WBC (Bld) 1.3 % Normal [facility] Comment on above: Order Comment: Speci men Type: BLOOD SPECIMENOrdering Facility: [facility] Address: [address] [place] [address] Performed By: #### 5 7021-8 ####[facility]ENTERNCLIA [id number] [place] [address] [place] Erythrocyte distribution width (RBC) [Ratio] 13.4 % Normal 11.5-15.0 [facility] Comment on above: Order Comment: Speci men Type: BLOOD SPECIMENOrdering Facility: [facility] Address: [address] [place] [address] Performed By: #### 5 7021-8 ####[facility] SUSANNEDELCAMBRENEGRITO [id number] [place] [address] [place] Hematocrit (Bld) [Volume fraction] 37.7 % Normal 36.0-46.0 [facility] Comment on above: Order Comment: Speci men Type: BLOOD SPECIMENOrdering Facility: [facility] Address: [address] [place] [address] Performed By: #### 5 7021-8 ####[facility]ENTERNCINTERMOUNTAIN HEALTH[facility] [id number] [place] [address] [place] Hemoglobin (Bld) [Mass/Vol] 12.9 g/dL Normal 11.5-15.5 [facility] Comment on above: Order Comment: Speci men Type: BLOOD SPECIMENOrdering Facility: [facility] Address: [address] [place] [address] Performed By: #### 5 7021-8 ####[facility] [id number] [place] [address] [place] Immature granulocytes (Bld) [#/Vol] 10*3/uL Normal <0.10 [facility] Comment on above: Order Comment: Speci men Type: BLOOD SPECIMENOrdering Facility: [facility] Address: [address] [place] [address] Performed By: #### 5 7021-8 ####[facility] CENTERNCLIA [id number] [place] [address] [place] Immature granulocytes/100 WBC (Bld) 0.3 % Normal [facility] Comment on above: Order Comment: Speci men Type: BLOOD SPECIMENOrdering Facility: [facility] Address: [address] [place] [address] Performed By: #### 5 7021-8 ####[facility] MILLWNCLIA [id number] [place] [address] [place] Lymphocytes (Bld) [#/Vol] 2.27 10*3/uL Normal 1.00-4.00 [facility] Comment on above: Order Comment: Speci men Type: BLOOD SPECIMENOrdering Facility: [facility] Address: [address] [place] [address] Performed By: #### 5 7021-8 ####[facility] HOSPITALLIA [id number] [place] [address] [place] Lymphocytes/100 WBC (Bld) 37.0 % Normal [facility] Comment on above: Order Comment: Speci men Type: BLOOD SPECIMENOrdering Facility: [facility] Address: [address] [place] [address] Performed By: #### 5 7021-8 ####[facility] HOSPITALA [id number] [place] [address] [place] MCH (RBC) [Entitic mass] 28.0 pg Normal 26.0-34.0 [facility] Comment on above: Order Comment: Speci men Type: BLOOD SPECIMENOrdering Facility: [facility] Address: [address] [place] [address] Performed By: #### 5 7021-8 ####[facility] HOSPITALLIA [id number] [place] [address] [place] MCHC (RBC) [Mass/Vol] 34.2 g/dL Normal 30.5-36.0 [facility] Comment on above: Order Comment: Speci men Type: BLOOD SPECIMENOrdering Facility: [facility] Address: [address] [place] [address] Performed By: #### 5 7021-8 ####[facility]ENTERNCLIA [id number] [place] [address] [place] MCV (RBC) [Entitic vol] 81.8 fL Normal 80.0-100.0 [facility] Comment on above: Order Comment: Speci men Type: BLOOD SPECIMENOrdering Facility: [facility] Address: [address] [place] [address] Performed By: #### 5 7021-8 ####[facility] [id number] [place] [address] [place] Monocytes (Bld) [#/Vol] 0.44 10*3/uL Normal <0.87 [facility] Comment on above: Order Comment: Speci men Type: BLOOD SPECIMENOrdering Facility: [facility] Address: [address] [place] [address] Performed By: #### 5 7021-8 ####[facility] [id number] [place] [address] [place] Monocytes/100 WBC (Bld) 7.2 % Normal [facility] Comment on above: Order Comment: Speci men Type: BLOOD SPECIMENOrdering Facility: [facility] Address: [address] [place] [address] Performed By: #### 5 7021-8 ####[facility] [id number] [place] [address] [place] Neutrophils (Bld) [#/Vol] 3.28 10*3/uL Normal 1.45-7.50 [facility] Comment on above: Order Comment: Speci men Type: BLOOD SPECIMENOrdering Facility: [facility] Address: [address] [place] [address] Performed By: #### 5 7021-8 ####[facility]ENTERNCINTERMOUNTAIN HEALTH[facility] [id number] [place] [address] [place] Neutrophils/100 WBC (Bld) 53.5 % Normal [facility] Comment on above: Order Comment: Speci men Type: BLOOD SPECIMENOrdering Facility: [facility] Address: [address] [place] [address] Performed By: #### 5 7021-8 ####[facility] CENTERFILOMENAINTERMOUNTAIN HEALTHCARE [id number] [place] [address] [place] Nucleated RBC (Bld) [#/Vol] 10*3/uL Normal <0.01 [facility] Comment on above: Order Comment: Speci men Type: BLOOD SPECIMENOrdering Facility: [facility] Address: [address] [place] [address] Performed By: #### 5 7021-8 ####[facility] [id number] [place] [address] [place] Nucleated RBC/100 WBC (Bld) [Ratio] 0.0 /100 WBC Normal [facility] Comment on above: Order Comment: Speci men Type: BLOOD SPECIMENOrdering Facility: [facility] Address: [address] [place] [address] Performed By: #### 5 7021-8 ####[facility] [id number] [place] [address] [place] Platelet mean volume (Bld) [Entitic vol] 9.3 fL Normal 9.0-12.7 [facility] Comment on above: Order Comment: Speci men Type: BLOOD SPECIMENOrdering Facility: [facility] Address: [address] [place] [address] Performed By: #### 5 7021-8 ####[facility] HOSPITALLI [id number] [place] [address] [place] Platelets (Bld) [#/Vol] 350 10*3/uL Normal 150-400 [facility] Comment on above: Order Comment: Speci men Type: BLOOD SPECIMENOrdering Facility: [facility] Address: [address] [place] [address] Performed By: #### 5 7021-8 ####[facility] CENTERNCLIA [id number] [place] [address] [place] RBC (Bld) [#/Vol] 4.61 10*6/uL Normal 3.90-5.20 [facility] Comment on above: Order Comment: Speci men Type: BLOOD SPECIMENOrdering Facility: [facility] Address: [address] [place] [address] Performed By: #### 5 7021-8 ####[facility] CENTERNCA [id number] [place] [address] [place] WBC (Bld) [#/Vol] 6.13 10*3/uL Normal 3.70-11.00 [facility] Comment on above: Order Comment: Speci men Type: BLOOD SPECIMENOrdering Facility: [facility] Address: [address] [place] [address] Performed By: #### 5 7021-8 ####[facility] CENTERNCA [id number] [place] [address] [place] Ferritin SerPl-mCncon 2024 Ferritin [Mass/Vol] 74.4 ng/mL Normal 14.7-205.1 [facility] Comment on above: Order Comment: Speci men Type: BLOOD SPECIMEN [facility]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 triamcinolone acetonide (NASACORT) 55 mcg nasal inhaler Use 2 Sprays in the nose once daily. - ondansetron (ZOFRAN) 4 mg tablet Take 1 tablet by mouth every 8 hours as needed for nausea/vomiting. - MAGNESIUM GLYCINATE ORAL Take 200 mg by mouth once daily. Problem List As Of Date 02/01/2024 Noted Resolved Osteochondritis dessicans [M93.20] 01/21/2011 03/19/2013 OCD (osteochondritis dissecans) of knee [M93.26*01/26/2011 Asthma [J45.909] 03/17/2011 Concussion [S06.0XAA] 11/08/2012 03/19/2013 Postural dizziness with near syncope [R42, R55] 11/28/2012 Cervical strain [S16.1XXA] 11/29/2012 Primary amenorrhea [N91.0] 02/15/2013 10/21/2019 Bulging discs [[id number]] 05/28/2013 Low back pain [M54.50] 05/30/2013 Chronic daily headache [R51.9] 04/30/2014 08/18/2015 Migraine with aura [G43.109] 04/30/2014 08/18/2015 Exertional headache [G44.84] 07/10/2014 10/21/2019 Dizziness and giddiness [R42] 07/22/2015 10/21/2019 POTS (postural orthostatic tachycardia syndrome*07/22/2015 Migraine with aura and without status migrainos*08/18/2015 Cervicalgia [M54.2] 08/18/2015 Convergence insufficiency [H51.11] 08/18/2015 Post-concussion syndrome [F07.81] 08/18/2015 10/21/2019 Neck pain [M54.2] 09/26/2016 10/21/2019 Whiplash injury to neck [S13.4XXA] 09/26/2016 10/21/2019 Neural foraminal stenosis of cervical spine [M4*10/07/2019 H/O cervical spine surgery [Z98.890] 10/07/2019 Right lower quadrant abdominal pain [R10.31] 02/15/2021 Stress [F43.9] 02/15/2021 Anxiety [F41.9] 02/15/2021 Chronic fatigue [R53.82] 02/15/2021 Arthralgia [M25.50] 02/15/2021 Rash [R21] 02/15/2021 Heavy metal exposure [Z77.018] 02/15/2021 Chemical sensitivity [Z91.09] 02/15/2021 Tachycardia [R00.0] 05/10/2021 Orthostatic intolerance [I95.1] 05/24/2021 Disturbance of skin sensation [R20.9] 05/24/2021 Chronic intermittent post-traumatic headache [G*05/24/2021 Pain in both lower extremities [M79.604, M79.60*06/07/2021 07/05/2021 Food intolerance [K90.49] 10/19/2021 Seasonal allergies [J30.2] 10/19/2021 Mast cell disease [D47.09] 10/19/2021 Elevated serum tryptase [R74.8] 10/19/2021 Upset stomach [K30] 10/19/2021 Iron deficiency [E61.1] 11/22/2021 Strict vegetarian diet [Z78.9] 11/22/2021 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 Normal [facility] Inital Evaluation (1) - PTon 01-29-2024 Inital Evaluation (1) - PT [facility] [address] [place] [address] / REHABILITATION SERVICES INITIAL EVALUATION MR#: [id number] Acct: [id number] Name: GLADYS SARAH Rep #: [id number] : 2000 24 From: Jim Mcdaniels DPT, OCS, CSCS Referring Dr.: Dr. Sarah Rodriguez DO Status: REG R Insurance: [facility] S[employer] PAY INSURANCE Patient's Visit Information Visit Information Visit Information: GLADYS SARAH is a 24 year old F referred to Physical Therapy by Dr. Sarah Rodriguez DO with a diagnosis of BPV. Date of Evaluation: 01/29/24 Physical Therapist: Jim Mcdaniels DPT, OCS, CSCS Visit Plan Frequency: 1-2x /Week Duration: 4-6 Weeks Plan: 1-2x/week for 4-6 weeks as needed for: IE treated with L ted adn HEP of VOR 30 sec seated H progressing to 60 seconds as able adn 6x/day , also acrtivity modifcaiton to minimize symptoms with head movement, visual environment and focus. Treat with monitor positional L for further treatment or BD, progression of VOR(/10 30 sec H today) and monitor balance Subjective Subjective: Had pneumonia a month ago. Got ear pressure and dizzyness. Put on antibiotic which helps but dizzyness persists. Not infected in ears. Doctor thinks it is positional. I have POTS also. In the last week gets spinning if she turns too fast or changes head position. Bending can cause it, has not had it in bed. Sleeping is not an issue. 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 Basic ADLs all I but has to stop if gets dizzy. Gets dizzy 10 x /day. Anything superphysical is avoiding, Hesitant to go on walks due to temperature changes. Balance is not an issue. Objective Objective: Walks into PT I, chair transfer I. steps reciprocal without rail balance is good but dizzyness with head turns L>R Good cervical and UE AROM without pain. Sensation UE WNL to gross light touch. B HD are - but asymmetrical L sided dizzyness. - roll test. Treated with L ted today and not immediately improved HD. Oculomotor: no nystagmus with head shake or gaze. - skew eye deviation - ocular tilt - head thrust(but dizzy R) Pursuit is normal Saccades create light dizzyness. VOR H 30 sec gives 4/10 dizzyness for 45 seconds and dizzyness within 3 seconds and is worst thing today. Balance/Special Test Scores Functional Gait Assessment Score: 27 % Disability: 10.0000 Dizziness Score: 26 Goals Goal 1:: Move head side to side without dizzyness Goal Time Frame: 4-6 Weeks Goal 2:: 30/30 FGA Goal Time Frame: 4-6 Weeks Goal 3:: Pt feel dizzyness 99% improved and I management. Goal Time Frame: 4-6 Weeks Goal 4:: DHI score 4 or better Goal Time Frame: 4-6 Weeks Rehabilitation Potential Physical Therapy Diagnosis: dizzyness with head movements. Rehabilitation Potential: Good Anticipated Interventions Patient/Client Instruction: Educate patient on: Condition and Plan of Care For the Purpose of:: To increase tolerance to activity/condition/position , To improve gait and locomotor functions and To improve safety with gait Comment: adaptation adn positional ex For the Purpose of:: To increase tolerance to activity/condition/position Text: Thank you for the opportunity to evaluate your patient. For Medicare and Medicare HMO plans, please review the plan of care and approve it. It will need to be FAXED BACK to us at [phone] for Medicare purposes. For Medicare only, by signing this I certify the plan of care. Please let me know if there are questions or concerns regarding this plan of care. Physician Signature: Date: 01/29/24 1555 CC: Dr. Sarah Rodriguez DO EB Signed Normal [facility] 01-22-2024 [facility] Telephone (NEUR) GLADYS SARAH ([id number]) 2000 F Date Time Provider Department 01/22/24 ANNIE LEMA [facility] During your visit today, we recorded the following information about you: Ines Jennings 01/22/2024 9:28 AM Signed SLEEP PHONE Name of caller: Gladys Relationship to patient : Self In-state or [id number] patient: In-State Was permission obtained from patient? Yes Patient identified by Name and Date of . ( Gladys Sarah, 2000). Yes Reason for Call : Called requesting to see if the nurse could adjust the pressure. Requested a call back Number to return call Okay to leave a message ? Yes Thank you calling [facility] [place]. You will receive a return call within 3 business days. If you feel that this is an urgent issue and needs immediate attention, it is recommended that you contact your primary care provider office or proceed to your Primary Care Provider, nearest [facility], or Emergency Room for evaluation/treatment. Alirio Dyer, RN 01/22/2024 10:51 AM Signed TC to patient: states she has been removing mask in middle of the night three nights in a row, c/o air hunger, asking for pressure increase. Annie Lema APRN.[facility] 01/22/2024 2:51 PM Signed Pressure increased as requested. Changed to 10-12 cmH2O. If she does not tolerate these changes, please let me know and we can readjust. Annie Lema APRN.TROUBLE CLERK 01/22/24 2:51 PM Allergies As of Date: 01/22/2024 Noted Allergy Reaction GLUTEN 10/11/2017 8 - GI Upset MOLD 04/04/2018 14 - Other: See Comments ADHESIVE TAPE (ROSINS) 2016 2 - Rash DOXYCYCLINE 02/02/2021 5 - Intolerance Comments: Yeast infection all over her body REGLAN (METOCLOPRAMIDE HCL) 03/19/2014 14 - Other: See Comments Comments: panic attack Date Reviewed: 01/10/2024 Reviewed by: Renita Holly MA - Fully Assessed Reason for Visit: Patient Question [9487] Prescriptions as of 01/22/2024 - ferrous sulfate 300 mg (60 mg iron)/5 mL syrup Take 5 mL by mouth every other day. - CPAP/BIPAP/OTHER Type .CPAPSettings into a note to see current settings/supplies/DME information. - CPAP/BIPAP/OTHER Type .CPAPSettings into a note to see current settings/supplies/DME information. - famotidine (PEPCID) 40 mg tablet Take 1 tablet by mouth daily at bedtime. - CPAP/BIPAP/OTHER NEW DEVICE SET-UP: AUTO CPAP with settings of 5-15 cm H2O. Lifetime supplies for AUTO CPAP, including patient preferred mask, head gear, heated tubing, humidity, filters, chin strap. Dx: Obstructive Sleep Apnea G47.33 DME: [facility] [place] Fax download reports to [phone]. - OTC PRODUCT once daily. sulfurzym - OTC NUTRITIONAL SUPPLEMENT once daily. mitocore - loratadine (CLARITIN) 10 mg tablet Take 1 tablet by mouth once daily as needed (itching, flushing, hives). - albuterol HFA (PROAIR HFA) 90 mcg/actuation inhaler Inhale 2 Puffs as instructed every 6 hours as needed. - triamcinolone acetonide (NASACORT) 55 mcg nasal inhaler Use 2 Sprays in the nose once daily. - ondansetron (ZOFRAN) 4 mg tablet Take 1 tablet by mouth every 8 hours as needed for nausea/vomiting. - MAGNESIUM GLYCINATE ORAL Take 200 mg by mouth once daily. Problem List As Of Date 01/22/2024 Noted Resolved Osteochondritis dessicans [M93.20] 01/21/2011 03/19/2013 OCD (osteochondritis dissecans) of knee [M93.26*01/26/2011 Asthma [J45.909] 03/17/2011 Concussion [S06.0XAA] 11/08/2012 03/19/2013 Postural dizziness with near syncope [R42, R55] 11/28/2012 Cervical strain [S16.1XXA] 11/29/2012 Primary amenorrhea [N91.0] 02/15/2013 10/21/2019 Bulging discs [YYC2853] 05/28/2013 Low back pain [M54.50] 05/30/2013 Chronic daily headache [R51.9] 04/30/2014 08/18/2015 Migraine with aura [G43.109] 04/30/2014 08/18/2015 Exertional headache [G44.84] 07/10/2014 10/21/2019 Dizziness and giddiness [R42] 07/22/2015 10/21/2019 POTS (postural orthostatic tachycardia syndrome*07/22/2015 Migraine with aura and without status migrainos*08/18/2015 Cervicalgia [M54.2] 08/18/2015 Convergence insufficiency [H51.11] 08/18/2015 Post-concussion syndrome [F07.81] 08/18/2015 10/21/2019 Neck pain [M54.2] 09/26/2016 10/21/2019 Whiplash injury to neck [S13.4XXA] 09/26/2016 10/21/2019 Neural foraminal stenosis of cervical spine [M4*10/07/2019 H/O cervical spine surgery [Z98.890] 10/07/2019 Right lower quadrant abdominal pain [R10.31] 02/15/2021 Stress [F43.9] 02/15/2021 Anxiety [F41.9] 02/15/2021 Chronic fatigue [R53.82] 02/15/2021 Arthralgia [M25.50] 02/15/2021 Rash [R21] 02/15/2021 Heavy metal exposure [Z77.018] 02/15/2021 Chemical sensitivity [Z91.09] 02/15/2021 Tachycardia [R00.0] 05/10/2021 Orthostatic intolerance [I95.1] 05/24/2021 Disturbance of skin sensation [R20.9] 05/24/2021 C (more content not included)... Normal [facility] CNPNon 01-11-2024 CNPN Telephone (PLASMN) GLADYS SARAH ([id number]) 2000 F Date Time Provider Department 01/11/24 RAGHU DONG During your visit today, we recorded the following information about you: GwynSuzi dickersonAydee 01/11/2024 11:49 AM Signed Patient called that she called to schedule the test you ordered and will not be able to get in until the end of Apr. She is asking for you to change to order to Stat / Urgent. Allergies As of Date: 01/11/2024 Noted Allergy Reaction GLUTEN 10/11/2017 8 - GI Upset MOLD 04/04/2018 14 - Other: See Comments ADHESIVE TAPE (ROSINS) 2016 2 - Rash DOXYCYCLINE 02/02/2021 5 - Intolerance Comments: Yeast infection all over her body REGLAN (METOCLOPRAMIDE HCL) 03/19/2014 14 - Other: See Comments Comments: panic attack Date Reviewed: 01/10/2024 Reviewed by: Renita Holly MA - Fully Assessed Reason for Visit: Change Of Order [3492] Prescriptions as of 01/11/2024 - ferrous sulfate 300 mg (60 mg iron)/5 mL syrup Take 5 mL by mouth every other day. - CPAP/BIPAP/OTHER Type .CPAPSettings into a note to see current settings/supplies/DME information. - CPAP/BIPAP/OTHER Type .CPAPSettings into a note to see current settings/supplies/DME information. - famotidine (PEPCID) 40 mg tablet Take 1 tablet by mouth daily at bedtime. - CPAP/BIPAP/OTHER NEW DEVICE SET-UP: AUTO CPAP with settings of 5-15 cm H2O. Lifetime supplies for AUTO CPAP, including patient preferred mask, head gear, heated tubing, humidity, filters, chin strap. Dx: Obstructive Sleep Apnea G47.33 DME: [facility] [place] Fax download reports to [phone]. - OTC PRODUCT once daily. sulfurzym - OTC NUTRITIONAL SUPPLEMENT once daily. mitocore - loratadine (CLARITIN) 10 mg tablet Take 1 tablet by mouth once daily as needed (itching, flushing, hives). - albuterol HFA (PROAIR HFA) 90 mcg/actuation inhaler Inhale 2 Puffs as instructed every 6 hours as needed. - triamcinolone acetonide (NASACORT) 55 mcg nasal inhaler Use 2 Sprays in the nose once daily. - ondansetron (ZOFRAN) 4 mg tablet Take 1 tablet by mouth every 8 hours as needed for nausea/vomiting. - MAGNESIUM GLYCINATE ORAL Take 200 mg by mouth once daily. 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.26*01/26/2011 Asthma [J45.909] 03/17/2011 Concussion [S06.0XAA] 11/08/2012 03/19/2013 Postural dizziness with near syncope [R42, R55] 11/28/2012 Cervical strain [S16.1XXA] 11/29/2012 Primary amenorrhea [N91.0] 02/15/2013 10/21/2019 Bulging discs [[id number]] 05/28/2013 Low back pain [M54.50] 05/30/2013 Chronic daily headache [R51.9] 04/30/2014 08/18/2015 Migraine with aura [G43.109] 04/30/2014 08/18/2015 Exertional headache [G44.84] 07/10/2014 10/21/2019 Dizziness and giddiness [R42] 07/22/2015 10/21/2019 POTS (postural orthostatic tachycardia syndrome*07/22/2015 Migraine with aura and without status migrainos*08/18/2015 Cervicalgia [M54.2] 08/18/2015 Convergence insufficiency [H51.11] 08/18/2015 Post-concussion syndrome [F07.81] 08/18/2015 10/21/2019 Neck pain [M54.2] 09/26/2016 10/21/2019 Whiplash injury to neck [S13.4XXA] 09/26/2016 10/21/2019 Neural foraminal stenosis of cervical spine [M4*10/07/2019 H/O cervical spine surgery [Z98.890] 10/07/2019 Right lower quadrant abdominal pain [R10.31] 02/15/2021 Stress [F43.9] 02/15/2021 Anxiety [F41.9] 02/15/2021 Chronic fatigue [R53.82] 02/15/2021 Arthralgia [M25.50] 02/15/2021 Rash [R21] 02/15/2021 Heavy metal exposure [Z77.018] 02/15/2021 Chemical sensitivity [Z91.09] 02/15/2021 Tachycardia [R00.0] 05/10/2021 Orthostatic intolerance [I95.1] 05/24/2021 Disturbance of skin sensation [R20.9] 05/24/2021 Chronic intermittent post-traumatic headache [G*05/24/2021 Pain in both lower extremities [M79.604, M79.60*06/07/2021 07/05/2021 Food intolerance [K90.49] 10/19/2021 Seasonal allergies [J30.2] 10/19/2021 Mast cell disease [D47.09] 10/19/2021 Elevated serum tryptase [R74.8] 10/19/2021 Upset stomach [K30] 10/19/2021 Iron deficiency [E61.1] 11/22/2021 Strict vegetarian diet [Z78.9] 11/22/2021 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] 12/06/2021 Hyperprolactinemia (HCC) [E22.1] 12/28/2021 Elevated morning serum cortisol level [R79.89] 12/28/2021 Seizure-like activity (HCC) [R56.9] 01/20/2022 Transient alteration of awareness [R40.4] 01/31/2022 08/19/2022 Palpitations [R00.2] 02/23/2022 Flushing [R23.2] 02/23/2022 Loose stools [R19.5] 02/23/2022 Gastroesophageal reflux disease with esophagiti*01/31/2023 Nonallergic rhinitis [J31.0] 01/31/2023 Intermittent asthma without complication [J45.2*01/31/2023 Encounter Status:Closed by AYDEE GOMEZ on 01/11/24 [facility] CNOVon 01-10-2024 CNOV Office Visit (PLAFVW ) GIANAGERMANIAGLADYS Esther ([id number]) 2000 F Date Time Provider Department 01/10/24 11:00 AM RAGHU DONG PLAFVW During your visit today, we recorded the following information about you: Raghu Dong MD 01/24/2024 8:55 AM Signed CC: Numbness and weakness of left hand. HPI: Ms. Sarah is a left hand dominant 23 year old female who presents with a chief complaint of numbness and weakness of the left hand. The numbness is most noticeable in the small finger. 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 The patient has noticed muscle atrophy in the left hand. The patient does not recall prior history of elbow trauma. The patient does recall prior history of neck trauma/whiplash injury she did have surgery to the neck in 2019. She said at times it feels like its coming from the shoulder. Patient has a hx of robyn danlos. The patient has had an EMG/NCS to test for ulnar nerve function on the left upper extremity. Extensive electrodiagnostic examination of the left arm discloses no abnormality. In particular 1. There is no EMG evidence of left cervical motor radiculopathy. 2. Screening left median, ulnar and radial studies are normal. Short-normal median distal motor and sensory latencies exclude significant distal median neuropathy at the type seen with carpal tunnel syndrome on the left side. 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 with unknown primary site (HCC) Menarche 09/15/2013 First Menstral Migraines [facility] PMH - PAST MEDICAL HISTORY OF 11/06/2008 normal color vision Postural orthostatic tachycardia syndrome Current Outpatient Medications Medication Sig Dispense Refill ferrous sulfate 300 mg (60 mg iron)/5 mL syrup Take 5 mL by mouth every other day. 100 mL 1 CPAP/BIPAP/OTHER Type .CPAPSettings into a note to see current settings/supplies/DME information. 1 Each 0 CPAP/BIPAP/OTHER Type .CPAPSettings into a note to see current settings/supplies/DME information. 1 Each 0 famotidine (PEPCID) 40 mg tablet Take 1 tablet by mouth daily at bedtime. 30 tablet 11 CPAP/BIPAP/OTHER NEW DEVICE SET-UP: AUTO CPAP with settings of 5-15 cm H2O. Lifetime supplies for AUTO CPAP, including patient preferred mask, head gear, heated tubing, humidity, filters, chin strap. Dx: Obstructive Sleep Apnea G47.33 DME: [facility] [place] Fax download reports to [phone]. 1 Each 0 OTC PRODUCT once daily. sulfurzym OTC NUTRITIONAL SUPPLEMENT once daily. mitocore loratadine (CLARITIN) 10 mg tablet Take 1 tablet by mouth once daily as needed (itching, flushing, hives). 90 tablet 1 albuterol HFA (PROAIR HFA) 90 mcg/actuation inhaler Inhale 2 Puffs as instructed every 6 hours as needed. 1 Each 0 triamcinolone acetonide (NASACORT) 55 mcg nasal inhaler Use 2 Sprays in the nose once daily. (Patient taking differently: Use 2 Sprays in the nose as needed.) 16.9 mL 5 ondansetron (ZOFRAN) 4 mg tablet Take 1 tablet by mouth every 8 hours as needed for nausea/vomiting. 20 tablet 0 MAGNESIUM GLYCINATE ORAL Take 200 mg by mouth once daily. No current facility-administered medications for this visit. ALLERGIES Allergen Reactions Gluten GI Upset Mold Other: See Comments Adhesive Tape (Ritika* Rash Doxycycline Intolerance Yeast infection all over her body Reglan [Metoclopram* Other: See Comments panic attack PE: Exam of the upper limb revealed: (+) Tinel sign over cubital tunnel. (+) Elbow flexion test. (-) ulnar nerve subluxation with elbow flexion. (-) atrophy of flexor-pronator mass. (-) Froment sign. (-) muscle atrophy of first dorsal interosseous (FDI). (-) claw deformity of ring and small fingers. (-) Wartenberg sign. (-) Tinel sign in supraclavicular region. (-) Tinel sign in infraclavicular region. (-) tenderness to palpation in coracoid process. (-) elevated arm stress test. RADIOLOGY: X-Rays of the elbows performed on 12/19/23 were reviewed with the patient. X-Rays showed: RESULT: Bony mineralization within normal limits. Osseous alignment appears intact. No joint effusion or acute fractures seen. No radiopaque foreign bodies are visualized. Assessment: Pain in left hand (primary encounter diagnosis) Numbness of left hand Plan: We discussed with Ms. Sarah the diagnosis and proposed treatment options. We discussed the pathophysiology of cubital tunnel syndrome. We also discussed that elbow flexion will cause traction on the ulnar nerve at the cubital tunnel, and prolonged elbow flexion can lead to ulnar nerve irritation, which then presents with symptoms of numbness and tingling involving (more content not included)... [facility] ([id number]) 2000 F Date Time Provider Department 01/01/24 PILO BEAN [facility] During your visit today, we recorded the following information about you: Pilo Bean PA 01/01/2024 11:38 AM Signed Please contact patient let her know x-ray reveals no pneumonia. Follow-up with PCP for persistent symptoms Corine Maher MA 01/01/2024 11:52 AM Signed Left message for patient to return call. SEAN Quevedo Brittany L, MA 01/01/2024 12:25 PM Signed Patient active MyChart. Patient notified via [employer] message. Ella Rajput MA Allergies As of Date: 01/01/2024 Noted Allergy Reaction GLUTEN 10/11/2017 8 - GI Upset MOLD 04/04/2018 14 - Other: See Comments ADHESIVE TAPE (ROSINS) 2016 2 - Rash DOXYCYCLINE 02/02/2021 5 - Intolerance Comments: Yeast infection all over her body REGLAN (METOCLOPRAMIDE HCL) 03/19/2014 14 - Other: See Comments Comments: panic attack Date Reviewed: 12/30/2023 Reviewed by: Melani Argueta MA - Fully Assessed Reason for Visit: Results [95] Prescriptions as of 01/01/2024 - cefUROXime (CEFTIN) 500 mg tablet Take 1 tablet by mouth two times a day for 5 days. - azithromycin (ZITHROMAX) 250 mg tablet Take 2 tablets by mouth once daily for 1 day, THEN 1 tablet once daily for 4 days. - ferrous sulfate 300 mg (60 mg iron)/5 mL syrup Take 5 mL by mouth every other day. - CPAP/BIPAP/OTHER Type .CPAPSettings into a note to see current settings/supplies/DME information. - CPAP/BIPAP/OTHER Type .CPAPSettings into a note to see current settings/supplies/DME information. - famotidine (PEPCID) 40 mg tablet Take 1 tablet by mouth daily at bedtime. - CPAP/BIPAP/OTHER NEW DEVICE SET-UP: AUTO CPAP with settings of 5-15 cm H2O. Lifetime supplies for AUTO CPAP, including patient preferred mask, head gear, heated tubing, humidity, filters, chin strap. Dx: Obstructive Sleep Apnea G47.33 DME: [facility] Fax download reports to [phone]. - OTC PRODUCT once daily. sulfurzym - OTC NUTRITIONAL SUPPLEMENT once daily. mitocore - loratadine (CLARITIN) 10 mg tablet Take 1 tablet by mouth once daily as needed (itching, flushing, hives). - albuterol HFA (PROAIR HFA) 90 mcg/actuation inhaler Inhale 2 Puffs as instructed every 6 hours as needed. - triamcinolone acetonide (NASACORT) 55 mcg nasal inhaler Use 2 Sprays in the nose once daily. - ondansetron (ZOFRAN) 4 mg tablet Take 1 tablet by mouth every 8 hours as needed for nausea/vomiting. - MAGNESIUM GLYCINATE ORAL Take 200 mg by mouth once daily. Problem List As Of Date 01/01/2024 Noted Resolved Osteochondritis dessicans [M93.20] 01/21/2011 03/19/2013 OCD (osteochondritis dissecans) of knee [M93.26*01/26/2011 Asthma [J45.909] 03/17/2011 Concussion [S06.0XAA] 11/08/2012 03/19/2013 Postural dizziness with near syncope [R42, R55] 11/28/2012 Cervical strain [S16.1XXA] 11/29/2012 Primary amenorrhea [N91.0] 02/15/2013 10/21/2019 Bulging discs [XSA9066] 05/28/2013 Low back pain [M54.50] 05/30/2013 Chronic daily headache [R51.9] 04/30/2014 08/18/2015 Migraine with aura [G43.109] 04/30/2014 08/18/2015 Exertional headache [G44.84] 07/10/2014 10/21/2019 Dizziness and giddiness [R42] 07/22/2015 10/21/2019 POTS (postural orthostatic tachycardia syndrome*07/22/2015 Migraine with aura and without status migrainos*08/18/2015 Cervicalgia [M54.2] 08/18/2015 Convergence insufficiency [H51.11] 08/18/2015 Post-concussion syndrome [F07.81] 08/18/2015 10/21/2019 Neck pain [M54.2] 09/26/2016 10/21/2019 Whiplash injury to neck [S13.4XXA] 09/26/2016 10/21/2019 Neural foraminal stenosis of cervical spine [M4*10/07/2019 H/O cervical spine surgery [Z98.890] 10/07/2019 Right lower quadrant abdominal pain [R10.31] 02/15/2021 Stress [F43.9] 02/15/2021 Anxiety [F41.9] 02/15/2021 Chronic fatigue [R53.82] 02/15/2021 Arthralgia [M25.50] 02/15/2021 Rash [R21] 02/15/2021 Heavy metal exposure [Z77.018] 02/15/2021 Chemical sensitivity [Z91.09] 02/15/2021 Tachycardia [R00.0] 05/10/2021 Orthostatic intolerance [I95.1] 05/24/2021 Disturbance of skin sensation [R20.9] 05/24/2021 Chronic intermittent post-traumatic headache [G*05/24/2021 Pain in both lower extremities [M79.604, M79.60*06/07/2021 07/05/2021 Food intolerance [K90.49] 10/19/2021 Seasonal allergies [J30.2] 10/19/2021 Mast cell disease [D47.09] 10/19/2021 Elevated serum tryptase [R74.8] 10/19/2021 Upset stomach [K30] 10/19/2021 Iron deficiency [E61.1] 11/22/2021 Strict vegetarian diet [Z78.9] 11/22/2021 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 Normal [facility] X[facility] CHEST 2V FRONTAL/LATon XR CHEST 2V FRONTAL/LAT * * *Final Report* * * DATE OF EXAM: Jan 01 2024 10:35AM WOX [id number] - XR CHEST 2V FRONTAL/LAT / PROCEDURE REASON: Acute cough * * * * Physician Interpretation * * * * EXAMINATION: CHEST RADIOGRAPH (2 VIEW FRONTAL and LATERAL) PATIENT/TECHNOLOGIST PROVIDED HISTORY: Shortness of breath and fever x 6 days CLINICAL HISTORY: 23 years old Female with Acute cough MQ: [id number] EXAM DATE/TIME: 01/01/2024 10:35 AM COMPARISON: Chest radiograph(s) dated 07/09/2023, 06/06/2022 RESULT: Lines, tubes, and devices: None. Lungs and pleura: No consolidation. No pleural effusion. No pneumothorax. Bilateral nipple shadows similar priors. Cardiomediastinal silhouette: Normal cardiomediastinal silhouette. Bones and soft tissues: Unremarkable. IMPRESSION: No acute radiographic abnormality. Automatic Stacker: PSCB Transcribe Date/Time: Jan 01 2024 10:36A Dictated by : AFTAB DE LEÓN DO This examination was interpreted and the report reviewed and electronically signed by: AFTAB DE LEÓN DO on Jan 01 2024 10:38AM EST [id number] Normal [facility] CNOVon 12-30-2023 CNOV Office Visit (UCWSTR ) GLADYS SARAH ([id number]) 2000 F Date Time Provider Department 12/30/23 2:45 PM LEORA PRIEST [facility] During your visit today, we recorded the following information about you: Temperature Pulse Respiration Blood pressure 98.9 degrees 78/minute 20/minute 106/62 Weight 65.9 kg Leora Priest, HEATHER.TROUBLE CLERK 12/30/2023 2:59 PM Signed Subjective Cough Associated symptoms include chest pain (with cough) and shortness of breath. Pertinent negatives include no chills, no ear pain, no sore throat and no myalgias. Gladys Sarah is a 23 year old female who presents with dry cough, shortness of breath, fatigue, nausea, and feeling tired for the past 5 days. She has not had an appetite. She feels some pain in her chest with the cough. 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 Review of Systems Constitutional: Positive for malaise/fatigue. Negative for chills and fever. HENT: Negative for congestion, ear pain and sore throat. Respiratory: Positive for cough and shortness of breath. Negative for hemoptysis and sputum production. Cardiovascular: Positive for chest pain (with cough). Gastrointestinal: Positive for nausea. Negative for vomiting. Musculoskeletal: Negative for myalgias. BP 106/62 Pulse 78 Temp 37.2 ?C (98.9 ?F) Resp 20 Wt 65.9 kg (145 lb 4.5 oz) LMP 07/01/2023 (Approximate) SpO2 99% BMI 22.75 kg/m? 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 with unknown primary site (HCC) Menarche 09/15/2013 First Menstral Migraines [facility] PMH - PAST MEDICAL HISTORY OF 11/06/2008 normal color vision Postural orthostatic tachycardia syndrome PAST SURGICAL HISTORY Procedure Laterality Date BACK SURGERY HX 08/21/2019 cervical spinal foraminotomy AND laminectomy COLONOSCOPY SCREENING HYSTEROSCOPY BX ENDOMETRIUMAND/POLYPC W/WO DANDC 01/28/2021 hysteroscopy [facility] for AUB UPPER ENDOSCOPIC ULTRASOUND ALLERGIES Gluten, Mold, Adhesive Tape (Rosins), Doxycycline, and Reglan [Metoclopramide Hcl] MEDICATIONS ferrous sulfate 300 mg (60 mg iron)/5 mL syrup Take 5 mL by mouth every other day. CPAP/BIPAP/OTHER Type .CPAPSettings into a note to see current settings/supplies/DME information. CPAP/BIPAP/OTHER Type .CPAPSettings into a note to see current settings/supplies/DME information. famotidine (PEPCID) 40 mg tablet Take 1 tablet by mouth daily at bedtime. CPAP/BIPAP/OTHER NEW DEVICE SET-UP: AUTO CPAP with settings of 5-15 cm H2O. Lifetime supplies for AUTO CPAP, including patient preferred mask, head gear, heated tubing, humidity, filters, chin strap. Dx: Obstructive Sleep Apnea G47.33 DME: [facility] [place] Fax download reports to [phone]. OTC PRODUCT once daily. sulfurzym OTC NUTRITIONAL SUPPLEMENT once daily. mitocore loratadine (CLARITIN) 10 mg tablet Take 1 tablet by mouth once daily as needed (itching, flushing, hives). albuterol HFA (PROAIR HFA) 90 mcg/actuation inhaler Inhale 2 Puffs as instructed every 6 hours as needed. triamcinolone acetonide (NASACORT) 55 mcg nasal inhaler Use 2 Sprays in the nose once daily. (Patient taking differently: Use 2 Sprays in the nose as needed.) ondansetron (ZOFRAN) 4 mg tablet Take 1 tablet by mouth every 8 hours as needed for nausea/vomiting. MAGNESIUM GLYCINATE ORAL Take 200 mg by mouth once daily. cefUROXime (CEFTIN) 500 mg tablet Take 1 tablet by mouth two times a day for 5 days. azithromycin (ZITHROMAX) 250 mg tablet Take 2 tablets by mouth once daily for 1 day, THEN 1 tablet once daily for 4 days. FAMILY HISTORY Problem Relation Age of Onset other (JRA) Father Hypertension Paternal Grandmother Cataract Paternal Grandmother Hypertension Paternal Grandfather Prostate Cancer Paternal Grandfather other (Other) Paternal Grandfather Cataract Maternal Grandmother Macular Degen Maternal Aunt Macular Degen Maternal Uncle other (bicuspid aortic valve) Brother Stroke Other maternal great g-ma Social History Tobacco Use Smoking status: Never Passive exposure: Never Smokeless tobacco: Never Vaping Use Vaping status: Never Used Substance Use Topics Alcohol use: No Drug use: No Objective Physical Exam Vitals and nursing note reviewed. Constitutional: General: She is not in acute distress. Appearance: Normal appearance. She is ill-appearing. HENT: Right Ear: Tympanic membrane, ear canal and external ear normal. Left Ear: Tympanic membrane, ear canal and external ear normal. Nose: Nose normal. Mouth/Throat: Pharynx: Uvula midline. No oropharyngeal exudate or posterior oropharyngeal erythema. Cardiovascular: Rate (more content not included)... Normal [facility] CNOVon 12-19-2023 CNOV Office Visit (ORTBV ) GLADYS SARAH ([id number]) 2000 F Date Time Provider Department 12/19/23 3:00 PM BUCK MAZARIEGOS [facility] During your visit today, we recorded the following information about you: Buck Mazariegos PA-C 01/04/2024 3:12 PM Addendum CHIEF COMPLAINT: Gladys Sarah is a 23 year old female who presents today for new evaluation of right medial elbow pain and left medial elbow pain. 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 Claims she had surgery to neck and since then with pain especially on the left side left worse than right radiating from the neck down. States the pain starts out in the left shoulder and shoots down to her left fourth and fifth finger. This has been happening very often most recently. 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 He has positive Tinel's in the cubital tunnel. I told her we will get an EMG to assess for ulnar nerve entrapment and then have her seen by one of our orthopedic elbow surgeons. In the meanwhile she was told to do warm soaks application of nonsteroidal balm to the painful areas. She rates the discomfort with nuclear is a good 8 out of 10 with 10 being worst. HISTORY OF PRESENT ILLNESS: She states that this pain has been present for the past year. Patient notes that this pain started insidiously with no inciting event. She states that this pain is about the same since onset. She notes the pain to be sharp, stabbing, and a tightness. She notes that pain is worsened with any use of the arm, repetitive motion, twisting motions, grabbing, gripping, wrist extension, wrist flexion, elbow extension, and elbow flexion. She notes that pain is improved with rest from offending activity. She notes that radiation into the wrist does occur. She notes that wrist weakness does occur. She notes associated symptoms of neck pain, wrist pain, shoulder pain, numbness in the arm, or numbness in the fingers. 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 Treatments so far have included medication () and physical therapy (completed in the past). REVIEW OF SYMPTOMS: Constitutional: patient denies any recent fever or significant change in weight Gastrointestinal: patient denies any current abdominal discomfort Musculoskeletal: as noted in the HPI Neurologic: as noted in the HPI SOCIAL HISTORY: Tobacco Use: Never ALLERGIES: ALLERGIES Allergen Reactions Gluten GI Upset Mold Other: See Comments Adhesive Tape (Ritika* Rash Doxycycline Intolerance Yeast infection all over her body Reglan [Metoclopram* Other: See Comments panic attack PAST MEDICAL HISTORY: PAST MEDICAL HISTORY Diagnosis Date Asthma Congenital pectus excavatum Dumping syndrome Knee osteochondritis dessicans 09/10/2009 Right knee, left side, Saw Dr. 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 with unknown primary site (HCC) Menarche 09/15/2013 First Menstral Migraines ACH PMH - PAST MEDICAL HISTORY OF 11/06/2008 normal color vision Postural orthostatic tachycardia syndrome PHYSICAL EXAMINATION: Patient's vitals and nursing notes were reviewed. Vitals: LMP 07/01/2023 Skin: Skin color, texture, turgor normal, no suspicious rashes or lesions noted Psychiatric: mood and affect are appropriate, patient is oriented to time, place and person General Appearance: Well appearing, alert, in no acute distress, well-hydrated, and well nourished Cardiovascular: pedal pulses and radial pulses normal, no signs of upper or lower extremity edema Respiratory: no respiratory distress, no audible wheezing, no labored breathing, symmetric thoracic excursion Neurologic: bilateral deep tendon reflexes are normal and symmetric with no pathologic reflexes, sensation is grossly intact Lymphatic: no lymph node enlargement noted in the examined area Musculoskeletal Examination: Range of motion: full range of active and passive motion noted in all aspects of elbow and wrist flexion, extension, supination and pronation Muscle strength: normal muscle strength testing of the elbow and wrist 3/5 in all aspects Neck exam: poor active and passive ROM with no significant pain Shoulder exam: normal active and passive ROM and normal muscle strength testing Lateral epicondyle palpation: no tenderness to palpation over the common extensor tendon Medial epicondyle palpation: painful to palpation over the common flexor tendon proximal to the medial epicondyle Radial tunnel palpation: painful to palpation Resisted wrist extension: positive for weakness Schillberg test (resisted middle finger extension): positive for (more content not included)... Normal [facility] XR ELBOW 3V AP/LAT/OTHER LTo n 12-19-2023 XR ELBOW 3V AP/LAT/OTHER LT * * *Final Report* * * DATE OF EXAM: Dec 19 2023 2:41PM BFX [id number] - XR ELBOW 3V AP/LAT/OTHER LT / PROCEDURE REASON: Pain * * * * Physician Interpretation * * * * XR ELBOW 3V AP/LAT/OTHER LT PROVIDED HISTORY: Pain COMPARISON: 01/01/2011 TECHNIQUE: 3 views of the left elbow RESULT: The bony mineralization is grossly unremarkable. Osseous alignment appears intact. No joint effusion or acute fractures seen. No radiopaque foreign bodies are visualized. IMPRESSION: No acute fractures seen of left elbow [facility] St[facility] Transcribe Date/Time: Dec 25 2023 9:09P Dictated by : ARABELLA DENG MD This examination was interpreted and the report reviewed and electronically signed by: ARABELLA DENG MD on Dec 25 2023 9:11PM EST [id number] Normal [facility] XR ELBOW 3V AP/LAT/OTHER RTo n 12-19-2023 XR ELBOW 3V AP/LAT/OTHER RT * * *Final Report* * * DATE OF EXAM: Dec 19 2023 2:41PM BFX [id number] - XR ELBOW 3V AP/LAT/OTHER RT / PROCEDURE REASON: Pain * * * * Physician Interpretation * * * * XR ELBOW 3V AP/LAT/OTHER RT PROVIDED HISTORY: Pain COMPARISON: No previous similar exams are available for comparison TECHNIQUE: 3 views of right elbow RESULT: Bony mineralization within normal limits. Osseous alignment appears intact. No joint effusion or acute fractures seen. No radiopaque foreign bodies are visualized. IMPRESSION: Unremarkable appearance of right elbow Automatic Stacker: [facility] Transcribe Date/Time: Dec 25 2023 9:11P Dictated by : ARABELLA DENG MD This examination was interpreted and the report reviewed and electronically signed by: ARABELLA DENG MD on Dec 25 2023 9:11PM EST [id number] Normal [facility] CBC W Auto Differential pane l (Bld)on 11-20-2023 Basophils (Bld) [#/Vol] 0.04 10*3/uL Normal <0.11 [facility] Comment on above: Order Comment: Speci men Type: BLOOD SPECIMENOrdering Facility: [facility] Address: [address] [place] [address] Performed By: #### 5 7021-8 ####[facility] [id number] [place] [address] [place] Basophils/100 WBC (Bld) 0.7 % Normal [facility] Comment on above: Order Comment: Speci men Type: BLOOD SPECIMENOrdering Facility: [facility] Address: [address] [place] [address] Performed By: #### 5 7021-8 ####[facility] [id number] [place] [address] [place] Differential cell count method Nom (Bld) Auto Normal [facility] Comment on above: Order Comment: Speci men Type: BLOOD SPECIMENOrdering Facility: [facility] Address: [address] [place] [address] Performed By: #### 5 7021-8 ####[facility] [id number] [place] [address] [place] Eosinophils (Bld) [#/Vol] 0.09 10*3/uL Normal <0.46 [facility] Comment on above: Order Comment: Speci men Type: BLOOD SPECIMENOrdering Facility: [facility] Address: [address] [place] [address] Performed By: #### 5 7021-8 ####[facility] KELSEYLIA [id number] [place] [address] [place] Eosinophils/100 WBC (Bld) 1.5 % Normal [facility] Comment on above: Order Comment: Speci men Type: BLOOD SPECIMENOrdering Facility: [facility] Address: [address] [place] [address] Performed By: #### 5 7021-8 ####[facility] SUSANNEDELCAMBREFILOMENALIA [id number] [place] [address] [place] Erythrocyte distribution width (RBC) [Ratio] 13.2 % Normal 11.5-15.0 [facility] Comment on above: Order Comment: Speci men Type: BLOOD SPECIMENOrdering Facility: [facility] Address: [address] [place] [address] Performed By: #### 5 7021-8 ####[facility]IG[facility]ERTOA [id number] [place] [address] [place] Hematocrit (Bld) [Volume fraction] 39.1 % Normal 36.0-46.0 [facility] Comment on above: Order Comment: Speci men Type: BLOOD SPECIMENOrdering Facility: [facility] Address: [address] [place] [address] Performed By: #### 5 7021-8 ####[facility] SUSANNEDELCAMBREFILOMENALIA [id number] [place] [address] [place] Hemoglobin (Bld) [Mass/Vol] 13.1 g/dL Normal 11.5-15.5 [facility] Comment on above: Order Comment: Speci men Type: BLOOD SPECIMENOrdering Facility: [facility] Address: [address] [place] [address] Performed By: #### 5 7021-8 ####[facility]ENTERNCLIA [id number] [place] [address] [place] Immature granulocytes (Bld) [#/Vol] 10*3/uL Normal <0.10 [facility] Comment on above: Order Comment: Speci men Type: BLOOD SPECIMENOrdering Facility: [facility] Address: [address] [place] [address] Performed By: #### 5 7021-8 ####[facility]NT[facility] HOSPITALLIA [id number] [place] [address] [place] Immature granulocytes/100 WBC (Bld) 0.2 % Normal [facility] Comment on above: Order Comment: Speci men Type: BLOOD SPECIMENOrdering Facility: [facility] Address: [address] [place] [address] Performed By: #### 5 7021-8 ####[facility] [id number] [place] [address] [place] Lymphocytes (Bld) [#/Vol] 1.77 10*3/uL Normal 1.00-4.00 [facility] Comment on above: Order Comment: Speci men Type: BLOOD SPECIMENOrdering Facility: [facility] Address: [address] [place] [address] Performed By: #### 5 7021-8 ####[facility] [id number] [place] [address] [place] Lymphocytes/100 WBC (Bld) 30.4 % Normal [facility] Comment on above: Order Comment: Speci men Type: BLOOD SPECIMENOrdering Facility: [facility] Address: [address] [place] [address] Performed By: #### 5 7021-8 ####[facility] [id number] [place] [address] [place] MCH (RBC) [Entitic mass] 27.5 pg Normal 26.0-34.0 [facility] Comment on above: Order Comment: Speci men Type: BLOOD SPECIMENOrdering Facility: [facility] Address: [address] [place] [address] Performed By: #### 5 7021-8 ####[facility] [id number] [address] [place] [facility] MCHC (RBC) [Mass/Vol] 33.5 g/dL Normal 30.5-36.0 [facility] Comment on above: Order Comment: Speci men Type: BLOOD SPECIMENOrdering Facility: [facility] Address: [address] [place] [address] Performed By: #### 5 7021-8 ####[facility]ENTERNEGRITO [id number] [place] [address] [place] MCV (RBC) [Entitic vol] 82.0 fL Normal 80.0-100.0 [facility] Comment on above: Order Comment: Speci men Type: BLOOD SPECIMENOrdering Facility: [facility] Address: [address] [place] [address] Performed By: #### 5 7021-8 ####[facility]ENTERRIGOBERTO [id number] [place] [address] [place] Monocytes (Bld) [#/Vol] 0.40 10*3/uL Normal <0.87 [facility] Comment on above: Order Comment: Speci men Type: BLOOD SPECIMENOrdering Facility: [facility] Address: [address] [place] [address] Performed By: #### 5 7021-8 ####[facility] CENTERFILOMENALIA [id number] [place] [address] [place] Monocytes/100 WBC (Bld) 6.9 % Normal [facility] Comment on above: Order Comment: Speci men Type: BLOOD SPECIMENOrdering Facility: [facility] Address: [address] [place] [address] Performed By: #### 5 7021-8 ####[facility] [id number] [place] [address] [place] Neutrophils (Bld) [#/Vol] 3.51 10*3/uL Normal 1.45-7.50 [facility] Comment on above: Order Comment: Speci men Type: BLOOD SPECIMENOrdering Facility: [facility] Address: [address] [place] [address] Performed By: #### 5 7021-8 ####[facility] [id number] [place] [address] [place] Neutrophils/100 WBC (Bld) 60.3 % Normal [facility] Comment on above: Order Comment: Speci men Type: BLOOD SPECIMENOrdering Facility: [facility] Address: [address] [place] [address] Performed By: #### 5 7021-8 ####[facility] [id number] [place] [address] [place] Nucleated RBC (Bld) [#/Vol] 10*3/uL Normal <0.01 [facility] Comment on above: Order Comment: Speci men Type: BLOOD SPECIMENOrdering Facility: [facility] Address: [address] [place] [address] Performed By: #### 5 7021-8 ####[facility] [id number] [place] [address] [place] Nucleated RBC/100 WBC (Bld) [Ratio] 0.0 /100 WBC Normal [facility] Comment on above: Order Comment: Speci men Type: BLOOD SPECIMENOrdering Facility: [facility] Address: [address] [place] [address] Performed By: #### 5 7021-8 ####[facility] [id number] [place] [address] [place] Platelet mean volume (Bld) [Entitic vol] 9.5 fL Normal 9.0-12.7 [facility] Comment on above: Order Comment: Speci men Type: BLOOD SPECIMENOrdering Facility: [facility] Address: [address] [place] [address] Performed By: #### 5 7021-8 ####[facility]ENTERNCINTERM[facility] [id number] [place] [address] [place] Platelets (Bld) [#/Vol] 344 10*3/uL Normal 150-400 [facility] Comment on above: Order Comment: Speci men Type: BLOOD SPECIMENOrdering Facility: [facility] Address: [address] [place] [address] Performed By: #### 5 7021-8 ####[facility]ENTERNCINTERMOUNT[facility] [id number] [place] [address] [place] RBC (Bld) [#/Vol] 4.77 10*6/uL Normal 3.90-5.20 [facility] Comment on above: Order Comment: Speci men Type: BLOOD SPECIMENOrdering Facility: [facility] Address: [address] [place] [address] Performed By: #### 5 7021-8 ####[facility] [id number] [place] [address] [place] WBC (Bld) [#/Vol] 5.82 10*3/uL Normal 3.70-11.00 [facility] Comment on above: Order Comment: Speci men Type: BLOOD SPECIMENOrdering Facility: [facility] Address: [address] [place] [address] Performed By: #### 5 7021-8 ####[facility]ENTERNCINTERM[facility] [id number] [place] [address] [place] Ferritin SerPl-mCncon 2023 Ferritin [Mass/Vol] 20.6 ng/mL Normal 14.7-205.1 [facility] Comment on above: Order Comment: Speci men Type: BLOOD SPECIMENOrdering Facility: [facility] Address: [address] [place] [address] Performed By: #### 2 276-4, 46852-1 ####[facility] LABCLIA [id number] [place] [id number] [place] Iron and Iron binding capaci ty panelon 11-20-2023 Iron [Mass/Vol] 56 ug/dL Normal 41-186 [facility] Comment on above: Order Comment: Speci men Type: BLOOD SPECIMENOrdering Facility: [facility] Address: [address] [place] [address] Performed By: #### 2 276-4, 17263-3 ####[facility] LABCLIA [id number] [place] [address] [place] Iron binding capacity [Mass/Vol] 326 ug/dL Normal 232-386 [facility] Comment on above: Order Comment: Speci men Type: BLOOD SPECIMENOrdering Facility: [facility] Address: [address] [place] [address] Performed By: #### 2 276-4, 29405-8 ####[facility] LABIA [id number] [place] [address] [place] Iron/TIBC [Molar ratio] 17.2 % Normal 15.0-57.0 [facility] Comment on above: Order Comment: Speci men Type: BLOOD SPECIMENOrdering Facility: [facility] Address: [address] [place] [address] Performed By: #### 2 276-4, 74164-8 ####[facility] LABIA [id number] [place] [id number] [place] BETA HCG, QUANTITATIVE FOR E Don 07-06-2023 HCG.beta subunit Qn m[IU]/mL Normal <5.0 [facility] Comment on above: Order Comment: Speci men Type: BLOOD SPECIMEN [facility] Address: [address] [place] [address] Result Comment: Veronica esqueda Performed By: #### H CGED, 02477-3, 52173-2 #### [facility] CLIA [id number] [address] [place] [address] [place] CBC W Auto Differential pane l (Bld)on 07-06-2023 Basophils (Bld) [#/Vol] 0.05 10*3/uL Normal <0.11 [facility] Comment on above: Order Comment: Speci men Type: BLOOD SPECIMEN [facility] Address: [address] [place] [address] Performed By: #### 5 7021-8 #### [facility] CLIA [id number] [address] [place] [address] [place] Basophils/100 WBC (Bld) 0.8 % Normal [facility] Comment on above: Order Comment: Speci men Type: BLOOD SPECIMEN [facility] Address: [address] [place] [address] Performed By: #### 5 7021-8 #### [facility] CLIA [id number] [address] [place] [address] [place] [facility] Differential cell count method Nom (Bld) Auto Normal [facility] Comment on above: Order Comment: Speci men Type: BLOOD SPECIMEN [facility] Address: [address] [place] [address] Performed By: #### 5 7021-8 #### [facility] CLIA [id number] [address] [place] [address] [place] Eosinophils (Bld) [#/Vol] 0.14 10*3/uL Normal <0.46 [facility] Comment on above: Order Comment: Speci men Type: BLOOD SPECIMEN [facility] Address: [address] [place] [address] Performed By: #### 5 7021-8 #### [facility] CLIA [id number] [address] [place] [address] [place] Eosinophils/100 WBC (Bld) 2.1 % Normal [facility] Comment on above: Order Comment: Speci men Type: BLOOD SPECIMEN [facility] Address: [address] [place] [address] Performed By: #### 5 7021-8 #### [facility] CLIA [id number] [address] [place] [address] [place] Erythrocyte distribution width (RBC) [Ratio] 13.4 % Normal 11.5-15.0 [facility] Comment on above: Order Comment: Speci men Type: BLOOD SPECIMEN [facility] Address: [address] [place] [address] Performed By: #### 5 7021-8 #### [facility] CLIA [id number] [address] [place] [address] [place] Hematocrit (Bld) [Volume fraction] 40.0 % Normal 36.0-46.0 [facility] Comment on above: Order Comment: Speci men Type: BLOOD SPECIMEN [facility] Address: [address] [place] [address] Performed By: #### 5 7021-8 #### [facility] CLIA [id number] [address] [place] [address] [place] Hemoglobin (Bld) [Mass/Vol] 13.2 g/dL Normal 11.5-15.5 [facility] Comment on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 circulating in your community, a diagnosis of influenza should be considered based on a patient's clinical presentation and empiric antiviral treatment should be considered, if indicated. Normal [facility] Comment on above: Performed By: #### F LUAG ####[address] [phone] Lipaseon 03-17-2017 Lipase 28 U/L Normal 16-63 [facility] Comment on above: Performed By: #### L IPAS ####[address] [phone] Manual Differentialon 2017 Anisocytosis presence Slight Normal [facility] Comment on above: Performed By: #### S CAN ####[address] [phone] Lymphocytes/100 leukocytes 16 % Low 24-44 [facility] Comment on above: Performed By: #### S CAN ####[address] [phone] Metamyelocytes 0 % Normal 0-0 [facility] Comment on above: Performed By: #### S CAN ####[address] [phone] Metamyelocytes/100 leukocytes 0 % Normal 0-0 [facility] Comment on above: Performed By: #### S CAN ####[address] [phone] Monocytes/100 leukocytes 7 % High 3-6 [facility] Comment on above: Performed By: #### S CAN ####[address] [phone] Neutrophils 16.9 Normal [facility] Comment on above: Performed By: #### S CAN ####[address] [phone] Neutrophils band/100 leukocytes 3 % Low 5-11 [facility] Comment on above: Performed By: #### S CAN ####[address] [phone] Poikilocytosis Occasional Normal [facility] Comment on above: Performed By: #### S CAN ####[address] [phone] Promyelocytes 0 % Normal 0-0 [facility] Comment on above: Performed By: #### S CAN ####[address] [phone] Segmented Neutrophils/100 leukocytes 74 % High 35-66 [facility] Comment on above: Performed By: #### S CAN ####[address] [phone] WBC (Leukocytes) Slight Normal [facility] Comment on above: Result Comment: Slig ht Toxic granulation Performed By: #### S CAN ####[address] [phone] Urinalysis,Automatedon 03-17 Erythrocytes (RBC) 0 10*6/uL Normal 0.0-20.0 [facility] Comment on above: Performed By: #### U FMIC ####[address] [phone] Urine, bacteria in sediment Few Normal [facility] Comment on above: Performed By: #### U FMIC ####[address] [phone] Urine, squamous cells in sediment 2 /uL Normal 0-20 [facility] Comment on above: Performed By: #### U FMIC ####[address] [phone] WBC (Leukocytes) 0.002 10*3/uL Normal 0.0-20.0 [facility] Comment on above: Performed By: #### U FMIC ####[address] [phone] Urinalysis,Completeon 2017 Bilirubin,urine Negative Normal Negative [facility] Comment on above: Performed By: #### U ACOM ####[address] [phone] Hemoglobin mass conc (Bld) Negative Normal Negative [facility] Comment on above: Performed By: #### U ACOM ####[address] [phone] Protein,Ur Negative Normal Neg.-Trace [facility] Comment on above: Performed By: #### U ACOM ####[address] [phone] Urine, character Clear Normal [facility] Comment on above: Performed By: #### U ACOM ####[address] [phone] Urine, color Straw Normal [facility] Comment on above: Performed By: #### U ACOM ####[facility] [place] [place] [phone] Urine, glucose presence Negative Normal Negative [facility] Comment on above: Performed By: #### U ACOM ####[facility] [place] [phone] Urine, ketones presence Negative Normal Negative [facility] Comment on above: Performed By: #### U ACOM ####[facility] [place] [place] [phone] Urine, leukocyte esterase presence Negative Normal Negative [facility] Comment on above: Performed By: #### U ACOM ####[facility] [address] [place], [place] [phone] Urine, nitrite presence Negative Normal Negative [facility] Comment on above: Performed By: #### U ACOM ####[facility] [place] [place] [phone] Urine, pH 8.0 Normal 5.0-8.0 [facility] Comment on above: Performed By: #### U ACOM ####[facility] [place], [place] [phone] Urine, specific gravity 1.005 Normal 1.005-1.03 0 [facility] Comment on above: Performed By: #### U ACOM ####[facility] [address] [place], [place] [phone] Urine, urobilinogen 0.2 mg/dl Normal Negative [facility] Comment on above: Performed By: #### U ACOM ####[facility] [address] [place] [phone] Volume 12 ml Normal 12 [facility] Comment on above: Performed By: #### U ACOM ####[facility] [place] [place] [phone] Urine Cultureon 03-17-2017 Urine culture, bacteria Urine Culture: No growth < 1000 CFU/ml. Source: URINE Collected: 03/17/17 00:21 Site: Received : 03/17/17 00:29Urine Culture FINAL 03/19/17 08:57 No growth < 1000 CFU/ml. Normal [facility] Comment on above: Performed By: #### U RINE ####[facility] [address] [facility] [place] [phone] FL UPPER GI WITHOUT AIR WITH OUT KUBon 03-10-2017 FL UPPER GI WITHOUT AIR WITHOUT KUB CLINICAL HISTORY: recurrent ABD pain and nausea. Normal upper GI 10/07/2013.TECHNIQUE: Low-dose fluoroscopy (2 frames per second) was used for evaluation of the upper GI tract.Fluoroscopy time: 4.8 minutesEstimated radiation dose: 17.2 mGy.Estimated DAP: 4.1 Gy-cm2.Contrast: 120 mL barium by mouth.COMPARISON: NoneFINDINGS:The limited machine joiner cementer image shows bowel gas present in a nonobstructive pattern with no obvious mass or calcification.ESOPHAGUS: The esophagus is normal in contour, caliber and motility.STOMACH: Normal with no gastric outlet obstruction.DUODENUM: The bulb and C-loop appear normal. The duodenojejunal junction isnormal in position. There is slight holdup of the barium at the level of thesuperior mesenteric artery with barium passing through with changes in position. This is of uncertain clinical significance.GASTROESOPHAGE AL REFLUX: No gastroesophageal reflux was observed during theexam.IMPRESSION:Normal upper GI examination.This report has been created using voice recognition software. It may containminor errors which are inherent in voice recognition technologySigned by: Dr. Georgi Godwin at 03/10/2017 09:45 Normal [facility] US ABDOMEN COMPLETEon 2016 US ABDOMEN COMPLETE CLINICAL HISTORY: AB D painTECHNIQUE: Sonographic evaluation of the abdomen was performed. Grayscale andcolor Doppler interrogation was utilized.COMPARISON: NoneFINDINGS:LIVER: Normal ultrasound appearance the right lobe is elongated, measuring 17.2cm, probably a prominent Maritza's lobe.SPLEEN: Normal ultrasound appearanceSpleen diameter: 11.5 cmGALLBLADDER: Normal ultrasound appearanceCBD: Normal ultrasound appearanceCBD diameter: 3.3 mmPANCREAS: Normal ultrasound appearanceKIDNEYS: Normal ultrasound appearanceRight kidney length: 10.9 cmLeft kidney length: 11.3 cmAORTA / IVC: The visualized portions were patent.URINARY BLADDER: Normal ultrasound appearanceIMPRESSION:Normal abdominal ultrasound findings.This report has been created using voice recognition software. It may containminor errors which are inherent in voice recognition technologySigned by: Dr. Neftaly Mason at 03/10/2017 10:[address] [facility] Progress Noteon 02-22-2017 Insurance Salesperson Authentication Interface Message Text Subjective:Patient ID: Gladys Rausch is a 17 y.o. female with previous issues of IBSand nausea. Now with issues of constipation. Patient last seen on 05/21/14.This is not a consultation.The patient's reason for visit is Follow Up Visit. She is accompanied by hermother.No prawn trawler hand was used.Follow UpABD pain - No issues now---Patient was diagnosed with CampylobacterStooling - now going 2x per day---No diarrhea---No blood---No waking to stoolUO - Doing wellN/V - With some Nausea, but no vomiting---But has recurrent gaggingGagging - full stomach is movingDysphagia - No issuesOdynophagia - no issuesAppetite - Not the greatest---Not avoiding issues to avoid symptoms---But, is eating smaller meals more frequently; but not helping nowGrowth - No weight lossActivity - Gagging is worse with increased activity---even short runningFevers - Had issues with campylobacer - but last one was 1-2 weeks ago---Tm - 102Rashes - No issuesMouth - No soresPrilosec - 20mg per day---? related to ABD pain---has been on since 2 motnhsZithromax - 5 days; for Campylobacter, and was finished on 02/17/17Currently -Review of SystemsConstitutional: Positive for weight loss. Negative for recurrent fevers andweight gain.HENT: Negative for ear pain, ear infections and ear discharge.Eyes: Negative for wears glasses, blurred vision and double vision.Respiratory: Negative for coughing, wheezing and asthma.Cardiovascular: Negative for heart murmur, heart problems and chest pain.Endocrine: Negative for thyroid problems.Gastrointestinal: Positive for abdominal pain and nausea. Negative for vomiting.Genitourinary: Negative for dysuria, hematuria and frequent urination.Neurological: Negative for developmental delays, headaches and seizures.Skin: Negative for rash and acne.Allergy/Immune: Negative for allergies.Hematology: Negative for no easy bleeding and no anemia.The patient's past medical, surgical history, family history, and medicationswere reviewed and updated in EPIC (electronic medical record).Objective:Physical ExamConstitutional: She appears well-developed. She does not appear thin.HENT:Nose: Her nose is normal.Mouth/Throat: Her mucous membranes are moist. Her oropharynx is clear. Herpharynx is normal.Eyes: Her conjunctivae are normal.Neck: She's normal range of motion.Cardiovascular: No murmur heard.Pulmonary/Chest: Effort normal and breath sounds normal.Abdominal: Her abdomen is soft. She exhibits no distension. Bowel sounds arenormal. There is tenderness in the periumbilical area. There is no CVAtenderness present.There is no hepatosplenomegaly.Neurolog ical: She is alert. She exhibits normal muscle tone.Skin: Skin is warm. Capillary refill takes less than 3 seconds. No petechiaenoted. No cyanosis. No jaundice.Vitals reviewed.Assessment:Gladys Rausch is a 14 y.o. female with issues of ABD pain and JOSEPHINE. Lastseen in office on Nov 2013. 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 Progress Noteon 02-10-2017 Insurance Salesperson Authentication Interface Message Text Patient ID: Gladys Rausch is a 17 y.o. female. Her chief complaint(s)include: Abdominal Pain (bright yellow diarrhea).Assessment:1. Pain of upper abdomenPlan:Gladys was seen today for abdominal pain.Diagnoses and all orders for this visit:Pain of upper abdomen- Occult Blood; Future- Enteric culture; FutureParent to take stool sample to [facility]. Provider to call parent when results back.Recommended continuing to use Bentyl as directed. Patient has a scheduled appt.With Dr Snowden in mid February. Follow up if sx not improving or worsening.Subjective:HPI Comments: Put on prilosec 1 month ago for abdominal pain-possible GERD.Prescribed Bentyl on 01/20/17. Took 1 pill but said sx did not improve. Hadbloody stool yesterday. Last night stool neon green x1. No family hx of chrons.She is accompanied by her mother.Abdominal PainThe onset has been acute (ongoing issue. Worse within the last week). Thecourse is worsening. The symptoms are characterized as sharp. The location ofthe pain is in the right upper quadrant and upper abdomen. The symptoms areaggravated by meals. Symptoms are relieved by nothing.Associated symptoms include interference with activity and decreased appetite.Associated symptoms do not include fever and vomiting.There have been no previous evaluations..Primary Care Review of SystemsObjective:Physical ExamConstitutional: No distress.Holding stomachHENT:Head: Atraumatic.Right Ear: Tympanic membrane normal.Left Ear: Tympanic membrane normal.Nose: No nasal discharge.Mouth/Throat: Throat is not red. Mucous membranes are moist.Eyes: Conjunctivae are normal. Pupils are equal, round, and reactive to light.Right eyelid exhibits no discharge. Left eyelid exhibits no discharge.Neck: No neck adenopathy.Cardiovascular: Normal rate and regular rhythm.No murmur heard.Pulmonary/Chest: Breath sounds normal. There is normal air entry. No stridor. Norespiratory distress. Air movement is not decreased. She has no wheezes. She hasno rhonchi. She has no rales. Exhibits no retraction.Abdominal: Soft. She exhibits no distension and no mass. Bowel sounds areincreased. There is tenderness (right upper and mid quadrant with palpation).Musculoskeletal: She exhibits tenderness (under right scapula with palpation).Neurological: She is alert. Normal [facility] Progress Noteon 01-20-2017 Insurance Salesperson Authentication Interface Message Text Patient ID: Gladys Rausch is a 17 y.o. female. Her chief complaint(s)include: Abdominal Pain (nausea, pain x1 month).Assessment:1. Other irritable bowel syndromePlan:Gladys was seen today for abdominal pain.Diagnoses and all orders for this visit:Other irritable bowel syndrome- dicyclomine (BENTYL) 10 MG capsule; Take 1 Cap (10 mg) by mouth every 6hours as needed (cramping)- cyproheptadine (PERIACTIN) 4 MG tablet; Take 1 Tab (4 mg) by mouth 3 timesdailyNo Follow-up on file.Gagging, nausea symptoms are concerningSubjective:HPI Comments: Hiccups and gagging a lot with eating. She will also have crampingafter eating. She called office and Dr. Gordillo put her on some Prilosec. Thishelped with acid coming up.Primary Care Review of SystemsObjective:Physical ExamConstitutional: She appears well. She is active. No distress.HENT:Head: Atraumatic.Right Ear: Tympanic membrane normal.Left Ear: Tympanic membrane normal.Mouth/Throat: Mucous membranes are moist.Eyes: Conjunctivae are normal.Cardiovascular: Normal rate and regular rhythm.No murmur heard.Pulmonary/Chest: Breath sounds normal. There is normal air entry.Abdominal: She exhibits no distension. There is no hepatosplenomegaly. There isno tenderness.Neurological: She is alert. Normal [facility] Progress Noteon 12-22-2016 Insurance Salesperson Authentication Interface Message Text Patient ID: Gladys Rausch is a 16 y.o. female. Her chief complaint(s)include: Fatigue (x 1 month; nausea (mostly motion sickness that last 2-3days), increased exercise makes her sick).Assessment:1. Postviral fatigue syndrome2. Vertigo3. Motion sickness, initial encounter4. Postural dizziness with presyncopePlan:Gladys was seen today for fatigue.Diagnoses and all orders for this visit:Postviral fatigue syndrome- POCT urine HCG- Complete Blood Count with Diff (Lab Collect); Future- Iron (Lab Collect); Future- TSH (Lab Collect); Future- T4, free (Lab Collect); Future- AMB Referral To Cardiology- Complete Blood Count with Diff (Lab Collect)- Iron (Lab Collect)- T4, free (Lab Collect)- TSH (Lab Collect)Vertigo- meclizine (ANTIVERT) 12.5 MG tablet; Take 1 Tab (12.5 mg) by mouth every 6hours as needed (dizziness, motion sickness)- Basic Metabolic Panel (Lab Collect); Future- Basic Metabolic Panel (Lab Collect)Motion sickness, initial encounter- meclizine (ANTIVERT) 12.5 MG tablet; Take 1 Tab (12.5 mg) by mouth every 6hours as needed (dizziness, motion sickness)Postural dizziness with presyncope- Cancel: AMB Referral To CardiologyNo Follow-up on file.Gladys has had similar symptoms in past, so I do not think anything acute isgoing on. However, there has been no definitive answer for the vertigo she isexperiencing. She has had several concussions. Will check baseline labs againand go from there.Subjective:The patient's reason for visit is fatigue. She is accompanied by her mother.FatigueThe duration has been 2 weeks.The patient's symptoms have included fatigue and abdominal pain (some cramping).The patient's symptoms have included no fever, no headaches, no diarrhea (doeshave significant nausea) and no vomiting. (Sleeping more still feeling tired;no weight loss).Additional Parental Concerns: Dizziness--> does describe room spinning.Getting car sickness recently. Did have some chest pain in August. Nausea seems kashif the main issue. She takes Dramamine prn for that.Last period was 3 weeks ago. On Renetta OCP for 4-5 months now.Primary Care Review of SystemsObjective:Physical ExamConstitutional: She appears well. She is active. No distress.HENT:Head: Atraumatic.Right Ear: Tympanic membrane normal.Left Ear: Tympanic membrane normal.Mouth/Throat: Mucous membranes are moist.Eyes: Conjunctivae are normal.Cardiovascular: Normal rate and regular rhythm.No murmur heard.Pulmonary/Chest: Breath sounds normal. There is normal air entry.Neurological: She is alert. She has normal strength. She displays no tremor. Nocranial nerve deficit. She exhibits normal muscle tone. She displays a negativeRomberg sign. Coordination and gait normal. Normal [facility] EKG Report: [facility] ECG Obse rvationson 08-15-2016 EKG QRS axis 82 deg [facility] Work Phone: Interpretation Sinus Rhythm WITHIN NORMAL LIMITS [facility] Work Phone: P Gibson 69 deg [facility] Work Phone: AK Interval 140 ms [facility] Work Phone: QRS Duration 90 ms [facility] Work Phone: QT Interval new path ms [facility] Work Phone: QTc [place] 387 ms [facility] Work Phone: [phone] T Gibson 40 deg [facility] Work Phone: Office Visit: UC: chest tigh tness, dizziness, fatigueon 08-15-2016 Documentation of current medications (procedure) Done Invalid Interpretation Code [facility] Work Phone: Fall risk assessment No [facility] Work Phone: Protein mass conc Done [facility] Work Phone: [phone] Tobacco smoking status NHIS Never smoker [facility] Work Phone: Tobacco use [facility] Never smoker Invalid Interpretation Code [facility] Work Phone: Vital Signs Date Time Vital Sign Value Performing Clinician Facility 01-03-2022 11:15-0400 Body temperature 98.1 [degF] Dr. Nasreen Perez Work Phone: [facility] Work Phone: 01-03-2022 11:15-0400 Diastolic blood pressure 78 mm[Hg] Dr. Nasreen Perez Work Phone: [facility] Work Phone: 01-03-2022 11:15-0400 Heart rate 74 /min Dr. Nasreen Perez Work Phone: [facility] Work Phone: 01-03-2022 11:15-0400 Respiratory rate 16 /min Dr. Nasreen Perez Work Phone: [facility] Work Phone: 01-03-2022 11:15-0400 SaO2% (BldA) [Mass fraction] 100 % Dr. Nasreen Perez Work Phone: [facility] Work Phone: 01-03-2022 11:15-0400 Systolic blood pressure 115 mm[Hg] Dr. Nasreen Perez Work Phone: [facility] Work Phone: 01-03-2022 09:30-0400 Body height 170.[address] Nasreen Perez Work Phone: [facility] Work Phone: 01-03-2022 09:30-0400 Body mass index (BMI) [Ratio] 22.8 kg/m2 Dr. Nasreen Perez Work Phone: [facility] Work Phone: 01-03-2022 09:30-0400 Body weight [address] Nasreen Perez Work Phone: [facility] Work Phone: 10-21-2021 01:35-0400 Diastolic blood pressure 67 mm[Hg] DR PRANAV WEBBER MD [facility] 10-21-2021 01:35-0400 Heart rate 74 /min DR PRANAV WEBBER MD [facility] 10-21-2021 01:35-0400 Respiratory rate 18 /min DR PRANAV WEBBER MD [facility] 10-21-2021 01:35-0400 Systolic blood pressure 118 mm[Hg] DR PRANAV WEBBER MD [facility] 10-20-2021 23:45-0400 Body temperature 98.06 [degF] DR PRANAV WEBBER MD [facility] 10-20-2021 23:45-0400 Diastolic blood pressure 76 mm[Hg] DR PRANAV WEBBER MD [facility] 10-20-2021 23:45-0400 Heart rate 80 /min DR PRANAV WEBBER MD [facility] 10-20-2021 23:45-0400 Respiratory rate 20 /min DR PRANAV WEBBER MD [facility] 10-20-2021 23:45-0400 Systolic blood pressure 126 mm[Hg] DR PRANAV WEBBER MD [facility] 08-15-2016 12:50-0400 Heart rate 69 /min Catalina Aixa POTTS [facility] Work Phone: 08-15-2016 12:21-0400 BMI (Body Mass Index) 19.95 kg/m2 Elaine Edouard LPN [facility] Work Phone: 08-15-2016 12:21-0400 Body Temperature 98.6 [degF] Elaine Edouard LPN [facility] Work Phone: 08-15-2016 12:21-0400 BP Diastolic 60 mm[Hg] Elaine Edouard LPN [facility] Work Phone: 08-15-2016 12:21-0400 BP Systolic 102 mm[Hg] Elaine Edouard LPN [facility] Work Phone: 08-15-2016 12:21-0400 Height 170.18 cm Elaine Edouard LPN [facility] Work Phone: 08-15-2016 12:21-0400 Pulse (Heart Rate) 77 /min Elaine Edouard LPN [facility] Work Phone: 08-15-2016 12:21-0400 Pulse Oximetry 99 % [facility] Work Phone: 08-15-2016 12:21-0400 Respiratory Rate 14 /min Elaine Edouard LPN [facility] Work Phone: 08-15-2016 12:21-0400 Weight 57.79 kg [facility] Work Phone: Encounters Encounter Date Encounter Type Care Provider Facility Start: 11-21-2024 ambulatory Sarah Rodriguez Facilit y:[facility] Start: 08-27-2024 End: 08-27-2024 Patient encounter procedure Alvarado Alfonso DO -[facility] Work Phone: Start: 08-27-2024 End: 08-27-[address] Sarah Rodriguez DO Work Phone: [facility] Work Phone: Start: 08-26-2024 End: 08-26-2024 ambulatory SARAH RODRIGUEZ Facility:[facility] Start: 08-16-2024 End: 08-16-2024 ambulatory SARAH RODRIGUEZ Facility:[facility] Start: 08-06-2024 End: 08-06-2024 ambulatory SARAH RODRIGUEZ Facility:[facility] Start: 07-31-2024 End: 07-31-2024 ambulatory SARAH RODRIGUEZ Facility:[facility] Start: 07-24-2024 End: 07-24-2024 ambulatory RAGHU DONG Facility:[facility] Start: 07-15-2024 End: 07-15-2024 ambulatory SARAH RODRIGUEZ Facility:[facility] Start: 07-05-2024 End: 07-05-[address] Sarah Rodriguez DO Work Phone: -Physical Therapy Start: 07-05-2024 End: 07-05-[address] Sarah Rodriguez DO Work Phone: -Physical Therapy Work Phone: Start: 07-05-[address] Jessica Rodriguez DO Work Phone: -Physical Therapy Work Phone: Start: 06-26-[address] Jessica Rodriguez DO Work Phone: -Physical Therapy Work Phone: Start: 06-25-2024 End: 06-25-[address] Sarah Rodriguez DO Work Phone: [facility] Work Phone: Start: 06-25-2024 End: 06-25-[address] Dewayne Mcgregor MD -Laboratory Work Phone: Start: 06-25-2024 End: 06-25-2024 ambulatory Sarah Rodriguez Facility:[facility] Start: 06-13-2024 End: 06-13-2024 ambulatory SARAH RODRIGUEZ Facility:[facility] Start: 06-05-2024 End: 06-05-[address] Dewayne Mcgregor MD -Laboratory Work Phone: Start: 06-05-2024 End: 06-05-[address] Sarah Rodriguez DO Work Phone: [facility] Work Phone: Start: 06-05-2024 End: 06-05-2024 ambulatory AGUSTIN LUNDBERG Facility:[facility] Start: 05-31-2024 End: 05-31-2024 ambulatory RAGHU DONG Facility:[facility] Start: 05-24-2024 End: 05-24-[address] Sarah Rodriguez DO Work Phone: [facility] Work Phone: Start: 05-24-2024 End: 05-24-2024 Patient encounter procedure Alvarado Alfonso DO -Laboratory Work Phone: Start: 05-24-2024 End: 05-24-2024 ambulatory Alvarado Alfonso Facility:[facility] Start: 05-20-2024 End: 05-20-2024 ambulatory SARAH RODRIGUEZ Facility:[facility] Start: 05-14-2024 End: 05-14-2024 ambulatory SARAH RODRIGUEZ Facility:[facility] Start: 05-14-2024 Encounter for other preprocedural examination SARAH RODRIGUEZ [facility] Start: 05-13-2024 End: 05-13-2024 ambulatory SARAH RODRIGUEZ Facility:[facility] Start: 05-08-2024 End: 05-08-2024 ambulatory SARAH RODRIGUEZ Facility:[facility] Start: 05-03-2024 End: 05-03-2024 ambulatory SARAH RODRIGUEZ Facility:[facility] Start: 04-29-2024 End: 04-29-2024 Patient encounter procedure Alvarado Alfonso DO -[facility] Work Phone: Start: 04-29-2024 End: 04-29-2024 ambulatory Sarah Rodriguez [facility] Start: 04-29-2024 End: 04-29-2024 ambulatory Alvarado Alfonso Facility:[facility] Start: 04-12-2024 End: 04-12-2024 ambulatory SARAH RODRIGUEZ Facility:[facility] Start: 04-10-2024 End: 04-10-2024 ambulatory RAGHU DONG Facility:[facility] Start: 03-25-2024 End: 03-25-2024 ambulatory SARAH RODRIGUEZ Facility:[facility] Start: 03-20-2024 End: 03-20-2024 ambulatory SARAH RODRIGUEZ Facility:[facility] Start: 03-04-2024 End: 03-04-2024 ambulatory Sarah Rodriguez Facility:[facility] Start: 03-04-2024 End: 03-04-[address] Sarah Rodriguez DO -Physical Therapy Work Phone: Start: 03-01-2024 End: 03-01-2024 ambulatory SARAH RODRIGUEZ Facility:[facility] Start: 02-28-2024 End: 02-29-2024 ambulatory RAGHU DONG Facility:[facility] Start: 02-15-2024 End: 02-15-2024 ambulatory SARAH RODRIGUEZ Facility:[facility] Start: 02-01-2024 End: 02-01-2024 ambulatory SARAH RODRIGUEZ Facility:[facility] Start: 01-10-2024 End: 01-10-2024 ambulatory RAGHU DONG Facility:[facility] Start: 01-01-2024 End: 01-01-2024 ambulatory SARAH RODRIGUEZ Facility:[facility] Start: 12-30-2023 End: 12-30-2023 ambulatory SARAH RODRIGUEZ Facility:[facility] Start: 12-26-2023 End: 12-26-2023 ambulatory SARAH RODRIGUEZ Facility:[facility] Start: 12-19-2023 End: 12-19-2023 ambulatory SARAH RODRIGUEZ Facility:[facility] Start: 11-20-2023 End: 11-20-2023 ambulatory SARAH RODRIGUEZ Facility:[facility] Start: 09-04-2023 End: 09-04-2023 ambulatory SARAH RODRIGUEZ Facility:[facility] Start: 07-06-2023 End: 07-06-2023 Emergency department patient visit SARAH RODRIGUEZ Facility:[facility] Start: 09-08-2022 ambulatory JANICE POOL Facility :[facility] Start: 01-03-2022 Non-patient / Non-visit Dr. Nasreen Perez Work Phone: [facility] Start: 01-03-2022 End: 01-03-2022 Admission to same day surgery center Dr. Nasreen Perez Work Phone: [facility]-End[facility] Start: 01-03-2022 End: 01-03-[address] Nasreen Perez Work Phone: [facility] Work Phone: Start: 12-22-2021 End: 12-22-[address] Nasreen Perez Work Phone: [facility] Work Phone: Start: 12-22-2021 End: 12-22-[address] Nasreen Perez Work Phone: [facility]-Physical Therapy Start: 12-22-[address] Nasreen llanes Work Phone: [facility]-Physical Therapy Start: 10-20-2021 End: 10-21-2021 Emergency department patient visit DR PRANAV WEBBER MD [facility] Start: 10-08-[address] Nasreen llanes Work Phone: [facility]-Physical Therapy Start: 10-06-2021 End: 10-06-[address] Nasreen Perez Work Phone: [facility] Start: 09-15-2021 End: 09-15-[address] Nasreen Perez Work Phone: [facility] Start: 07-16-2021 End: 07-16-[address] Nasreen Perez Work Phone: [facility] Start: 07-14-[address] Nasreen llanes Work Phone: [facility]-Physical Therapy Start: 04-15-2021 Non-patient / Non-visit Dr. Nasreen Perez Work Phone: [facility] Start: 04-15-2021 End: 04-15-[address] Nasreen Perez Work Phone: [facility]Cardi[facility] Start: 06-09-2017 End: 06-09-[address] [facility] Start: 04-17-2017 End: 04-18-2017 Ambulatory [facility] Start: 04-03-2017 End: 04-03-2017 Ambulatory [facility] Start: 04-03-2017 End: 04-03-2017 Ambulatory [facility] Start: 03-17-2017 End: 03-17-2017 Emergency department patient visit VONDA GORDILLO [facility] Start: 03-10-2017 End: 03-11-2017 Ambulatory [facility] Start: 02-22-2017 End: 02-22-2017 Ambulatory [facility] Start: 02-10-2017 End: 02-10-2017 Ambulatory ROD LIEBERMAN [facility] Start: 01-20-2017 End: 01-20-2017 Ambulatory GILBERTO MARQUES [facility] Start: 12-22-2016 End: 12-22-2016 Ambulatory [facility]O MARQUES [facility] Procedures Date Procedure Procedure Detail Performing Clinician Start: 06-25-[address] Kadeem Rodriguez DO Work Phone: Comment on above: Test Ordered: [id number] Parasite Exam, BloodParasite Exam, Blood Comment Reference Range: None SeenNo Plasmodium, Babesia, or other blood parasites seen.One negative result does not rule out the possibility of aparasitic infestation. If protozoal, filarial, ortrypanosomal infection is strongly suspected, test shouldbe performed at least three times with samples obtained atdifferent times in the fever cycle.Performed at: - [facility] [id number] Director: Janey Ramos MD, Phone: [phone] at: - [facility] [id number] Director: Seth Dubon PhD, Phone: [phone] Start: 05-24-2024 Iadna-dna/rna gi pth gn multiplex probe tq 6-11 Dr. Sarah Rodriguez DO Work Phone: Start: 05-24-2024 Albumin/Globulin ratio Dr. Sarah Rodriguez DO Work Phone: Start: 05-24-2024 Hepatitis A virus an tibody, IgM type Dr. Sarah Rodriguez DO Work Phone: Comment on above: A negative anti-HAV IgM result suggests no recent orcurrent HAV infection. Start: 05-24-2024 Hepatitis B core ant ibody measurement, IgM type Dr. Sarah Rodriguez DO Work Phone: Start: 05-24-2024 Hepatitis C antibody measurement Dr. Sarah Rodriguez DO Work Phone: Start: 05-24-[address] e fraction Dr. Sarah Rodriguez DO Work Phone: Start: 05-24-2024 [address] M measurement Dr. Sarah Rodriguez DO Work Phone: Start: 05-24-2024 End: 05-24-2024 Giardia lamblia antigen assay Dr. Sarah Rodriguez DO Work Phone: Start: 05-24-[address] Sarah Rodriguez DO Work Phone: Start: 05-24-2024 Ova [place] parasites identification Dr. Sarah Rodriguez DO Work Phone: Start: 04-29-2024 Albumin/Globulin ratio Dr. Sarah Rodriguez DO Work Phone: Start: 04-29-2024 Alternaria alternata RASOra Rodriguez DO Work Phone: Start: 04-29-[address] Ene Rodriguez DO Work Phone: Start: 04-29-[address] Sarah Rodriguez DO Work Phone: Start: 04-29-[address] Kadeem Rodriguez DO Work Phone: Start: 04-29-2024 House dust mite (Df) RAST Dr. Sarah Rodriguez DO Work Phone: Start: 04-29-[address] Sarah Rodriguez DO Work Phone: Start: 04-29-2024 Intrinsic factor ant ibody measurement Dr. Sarah Rodriguez DO Work Phone: Comment on above: Performed at: [facility] [id number] Director: Seth Dubon PhD, Phone: [phone] at: [facility] [place] [id number] Director: Janey Ramos MD, Phone: [phone] Start: 04-29-2024 Mouse urine proteins RAST Dr. Sarah Rodriguez DO Work Phone: Comment on above: Performed at: [address] [id number] Director: Janey Ramos MD, Phone: [phone] Start: 04-29-2024 Plantain (Equatorial Guinean) RAST Dr. Sarah Rodriguez DO Work Phone: Start: 04-29-[address] Kadeem Rodriguez DO Work Phone: Start: 01-03-[address] Nasreen beasley Work Phone: Start: 07-16-2021 Plain chest X-ray Dr. Radha Perez Work Phone: None (qualifier value) DR MAGEN WEBBER MD Plan of Treatment Date Care Activity Detail Author Start: 06-05-2024 Malarial parasite screening test [facility] Start: 01-03-2022 Patient discharge [facility] Work Phone: Start: 09-14-2016 End: 09-14-2016 Appointment Appointment [facility] Work Phone: Start: 08-16-2016 End: 08-16-2016 Cardiac Referral Cardiac Referral [address] [place] [address], [address], [place], [address] [facility] Work Phone: Start: 08-15-2016 End: 08-15-2016 Appointment Appointment [facility] Work Phone: Start: 08-15-2016 End: 08-15-2016 Electrocardiogram, complete EKG (In office) [facility] Work Phone: Microscopic observat ion [Identifier] in Blood by Malaria smear [facility] Patient Education CHEST%20PAIN [facility] Work Phone: Patient referral [facility] Work Phone: [facility] Immunizations Immunization Date Immunization Notes Care Provider Fa cility 04-09-2019 Zofran ODT 4 mg oral tablet, disintegrating DR PRANAV WEBBER MD [facility] Payers Date Payer Category Payer Self-pay [id number] 2020 Unknown [id number] Unknown [id number] Unknown [id number] 2.16.8 [id number] Unknown [id number] 2.16.8 [id number] Unknown [id number] 2.16.8 [id number] Unknown [id number] 2.16.8 [id number] Unknown [id number] 2.16.8 [id number] Unknown [id number] 2.16.8 [id number] Unknown [id number] 2.16.8 [id number] Unknown [id number] 2.16.8 [id number] Unknown [id number] 2.16.8 [id number] Social History Date Type Detail Facility Start: 01-22-2021 End: 12-30-2021 Tobacco smoking status NHIS Unknown if ever smoked [facility] Work Phone: Start: 2000 Sex Assigned At Female A [facility] Start: 04-09-2019 End: 01-19-2022 Tobacco smoking status Never smoked tobacco (finding) [facility] Start: 06-04-2024 End: 06-27-2024 Sex Female (finding) [facility] Goals Date Patient Goal Desired Activity /State Functional Status Date Assessment Result Facility 10-21-2021 Functional Status Minimum assistance [facility] 10-20-2021 Functional Status ID band on, Call device within reach, Bed in low position, Wheels locked, Visitor at bedside [facility] Mental Status Date Assessment Result Facility 01-03-2022 Cognitive function Voice/Name [facility] Work Phone: 10-21-2021 Mental Status Orientation Oriented x 4 [facility] 10-20-2021 Mental [facility] Clinical Notes 10-21-2021 to 10-16-2024 Note Date & Type Note Facility 10-16-2024 Discharge summary Note Date/Time October 16, 2024 11:17am [facility] Physical Therapy [facility] [place] [address] / REHABILITATION SERVICES DISCHARGE SUMMARY MR#: [id number] Acct: [id number] Name: GLADYS SARAH Rep #: [id number] : 2000 24 From: Fuad Payan Referring DrEdmund: OUT OF TOWN DOCTOR Status: REG RCR Insurance: [facility] SELF PAY INSURANCE Patient Information Patient Information: GLADYS SARAH was seen in my office for initial evaluation on 06/20/24. The following Plan of Care was established for this patient: POC Established Initial Frequency: 1x/Week Initial Duration: 4 Weeks Anticipated Interventions Patient/Client Instruction: Educate patient on: Condition, Plan of Care, Risk Factors and Benefits of Fitness Program For the Purpose of:: To facilitate caregiver knowledge, To improve self management, To prevent re-injury and To improve ability to perform tasks related to life management Therapeutic Exercise to Include: Flexibilty training, Passive ROM and Active ROM For the Purpose of:: To decrease pain and To increase ROM Manual Therapy Techniques to Include: Mobilization and Passive ROM For the Purpose of:: To decrease pain and To increase ROM Last Seen Last Seen: This patient was last seen in our office 07/05/24. Pertinent comments regardingtheir Physical therapy will appear below: Pt. has seen in Pt for her L elbow hypomobility. Pt. was doing much better at her last visit. She was going to continue HEP on her own and call back if needed. Pt. has not been seen in several months and will be DC from PT at this point in time. At this point I will be discontinuing this patient from physical therapy. I would be happy to see this patient again in the future if found appropriate by the physician. Thank you! Fuad Fish DPT Balance/Gait/Functional tests Balance/Special Test Scores Quick DASH Score: 25.0000 <Electronically signed by Fuad Fish DPT> 10/16/24 1117 CC: AGUSTIN LUNDBERG; Dr. Sarah Rodriguez, DO ~ CLS Signed [facility] Work Phone: 1(655) 118-860508-06-2025 Discharge summary [facility] Physical Therapy [facility] [address] [place] [address] [address] [place] [address] / REHABILITATION SERVICES DISCHARGE SUMMARY MR#: [id number] Acct: [id number] Name: GLADYS SARAH Rep #: [id number] : 2000 24 From: Fuad ODONNELL T Referring DrEdmund: OUT OF TOWN DOCTOR Status: REG RCR Insurance: [facility] SELF PAY INSURANCE Patient Information Patient Information: GLADYS SARAH was seen in my office for initial evaluation on 06/20/24. The following Plan of Care was established for this patient: POC Established Initial Frequency: 1x/Week Initial Duration: 4 Weeks Anticipated Interventions Patient/Client Instruction: Educate patient on: Condition, Plan of Care, Risk Factors and Benefits of Fitness Program For the Purpose of:: To facilitate caregiver knowledge, To improve self management, To prevent re-injury and To improve ability to perform tasks related to life management Therapeutic Exercise to Include: Flexibilty training, Passive ROM and Active ROM For the Purpose of:: To decrease pain and To increase ROM Manual Therapy Techniques to Include: Mobilization and Passive ROM For the Purpose of:: To decrease pain and To increase ROM Last Seen Last Seen: This patient was last seen in our office 07/05/24. Pertinent comments regardingtheir Physical therapy will appear below: Pt. has seen in Pt for her L elbow hypomobility. Pt. was doing much better at her last visit. She was going to continue HEP on her own and call back if needed. Pt. has not been seen in several monthsand will be DC from PT at this point in time. At this point I will be discontinuing this patient from physical therapy. I would be happy to see this patient again in the future if found appropriate by the physician. Thank you! Fuad Fish, DPT Balance/Gait/Functional tests Balance/Special Test Scores Quick DASH Score: 25.0000 10/16/24 1117 CC: AGUSTIN LUNDBERG; Dr. 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 Author Type: Nurse Practitioner Type: Progress Notes Filed: 08/16/2024 15:37 Note Text: [facility] Follow up/ Established patient visit Visit performed virtually, with the patient's permission. I have communicated my name and active licensure. The patient's identity and physical location were verified at the time of this visit. 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 She was evaluated by Dr. Deng with PSG d/t daytime fatigue and waking with choking/coughing. PSG 04/26/2023 revealed mild MIKAL (AHI of 5.2); PLMI 1.0; SE 67.0%; (3% hypopnea scoring; BMI 23.6). She was set-up with APAP 05/10/2023 through [employer]. She reports compliance with PAP therapy and perceived benefit of treatment. Daytime energy levels are improved, as is sleep inertia. She is no longer napping regularly. She is having some recent issues with ear pressure, which is exacerbated by PAP pressure. She had pneumonia in December. She has had some swollen lymph nodes and ear pressure and vertigo since that time. Her mask straps are felt to worsen lymphadenopathy when worn tightly. PLAN: - Continue Auto CPAP at new settings of 9-11 cmH2O. - We will see if slight pressure reduction improves leak and reduces ear pressure - Sleep apnea is presently well controlled! Keep up the great work! - Remember to clean your mask and equipment regularly, as directed. - Avoid use of ozone supervisor shipfitters, SoClean devices, or UV cleaning devices - Avoid using alcohol or alcohol-containing products on your mask, as this may compromise the integrity of the mask materials and contribute to leak issues - Use only baby shampoo and water, mild dish soap and water, or CPAP-specific wipes to clean your supplies. - You should be eligible for new supplies approximately every 3-6 months, depending on your insurance coverage. Contact your [employer] company for new supplies as needed. - Order will be sent to [employer] for supplies: [employer] [facility] phone: [phone] fax: [phone] - Try Flonase or Nasacort for ear pressure - Can try warm compress to help reduce lymph node swelling - Follow-up with primary care if ear/lymph node symptoms persist or worsen - Follow up in 6 months, sooner if needed Annie Lema APRN.TROUBLE CLERK Here for follow up for MIKAL on CPAP Interval history : No recurrence of ear pressure. Still has some issues with removing mask during night w/o awareness. SLEEP APNEA A Polysomnogram performed on 04/26/2023 revealed mild MIKAL (AHI of 5.2) that was associated with a minimum O2 saturation of 89%; PLMI 1.0; SE 67.0%; (3% hypopnea scoring; BMI 23.6). Sleep apnea type : MIKAL, Most Recent Apnea-Hypopnea Index (AHI): 5.2 Treatment : PAP tx DME: [facility] Address: [address] [place] [address] A, [place] [address] PAP History: Current PAP settin-12 cm H2O. - at APAP 5-15 cmH2O - had aerophagia - at APAP 5-10 cmH2O - taking mask off during night - at APAP 8-11 cmH2O - air hunger, removing mask during night, requested increase - at APAP 10-12 cmH2O - c/o ear pressure - at APAP 9-11 cmH2O - c/o removing mask during sleep, aerophagia, higher events ; resumed prior settings of 10-12 cmH2O Difficulties with CPAP: none Reviewed objective PAP compliance data: Yes Mask type: full face mask (AirFit F30i) - She tried nasal mask, but felt she was breathing through mouth at night.(Wears mouth guard) - She tried standard FFM, but didn't tolerate tubing in the front. Mask issues: none Uses chin strap: No Uses ramp function: Yes Uses humidity: Yes, distilled water There is a perceived benefit by the patient: Yes - less daytime sleepiness SLEEP HYGIENE QUESTIONS: Has foster kids at home. Falling asleep on couch first lately and moving to bed an hour or two later Bedtime: 11 PM - 12 AM, falls asleep within 5 minutes. Wake time: 6-8 AM with alarm. She is no longer napping regularly. Occasionally naps on Sundays, more during the school year. Average total sleep time (in a 24 hour period): 7-8 hours She does drink 2 caffeinated beverages per day. Sleep inertia is improved significantly. PATIENT-ENTERED QUESTIONNAIRE SLEEP SCORES 08/16/2024 Sleep Quest (more content not included)...[id number] NoteHNO ID: [id number] Author: TORSTEN SALDIVAR PCNA Service: ? Author Type: Patient Care Electronic Equipment Trades Worker Type: Progress Notes Filed: 08/16/2024 15:37 Note Text:[facility] [id number] NoteHNO ID: [id number] Author: ARMANI TRIMBLE PA-C Service: ? Author Type: Physician Mining Consultant Type: Progress Notes Filed: 08/02/2024 11:57 Note Text: [facility] Hematology Oncology AND Blood Disorders Established Patient Visit Note This visit is a Virtual MyChart video encounter which required patient-provider interaction for the medical decision making as documented below. Persons Present: patient Gladys Sarah consented to this distance health encounter. Total Time Spent: I spent a total of 30 minutes on the date of the service which included preparing to see the patient, [id number] patient care, completing clinical documentation, obtaining and/or reviewing separately obtained history, performing a medically appropriate examination, counseling and educating the patient/family/caregiver, and ordering medications, tests, or procedures. I have communicated my name and active licensure. The patient's identity and physical location were verified at the time of this visit. 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 (Elements copied from my previous note dated 05/08/24, have been reviewed and updated where appropriate, and all reflect current assessment and medical decision making during today's encounter, 07/31/2024.) PATIENT NAME: Gladys Sarah DATE OF SERVICE: July 31, 2024 REASON FOR VISIT: follow up for anemia HISTORY OF THE PRESENT ILLNESS: 05/08/24 A/P: Ms. Driver is a 24 year old female with PMHx significant for POTS, mild intermittent asthma, migraines, hypothalamic amenorrhea?, COVID 19 infection in Mar 2020,TBI/concussion x2 necessitating cervical decompression and laminectomy/foraminotomy, and post-concussive syndrome who presented for follow up evaluation for iron deficiency anemia. She was initially treated with PO iron supplementation, but was unable to tolerated due to nausea. She has intermittently been treatment with IV iron sucrose which has helped to improve her symptoms and she has tolerated well until this most recent cycle in February 2024. During her 1st dose of iron sucrose 200mg IV push, she developed dyspnea, nausea, and ROCK after infusion. Subsequent dose was given at slower rate and with IV fluids which she tolerated well. While her Hgb remains stable at 12.9, her iron studies show worsening iron deficiency after iron infusions. 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 She continues on PO B12 and her B12 levels remain stable. At this time, we will start PPI and give additional IV iron sucrose infusions with slower rate. She is scheduled to follow up with GI, which will be very helpful regarding her parietal cell findings. Will follow up in approximately 2-3 months. Patient agreeable with this plan. Interval HPI: Was in [place] in April and later found to have malaria - completed antibiotic course per ID instructions Had elbow surgery on 05/31/24 - completed PT Still having some fatigue after surgery. No other symptoms at this time Denies any abnormal bleeding PAST MEDICAL HISTORY: PAST MEDICAL HISTORY Diagnosis Date Asthma Congenital pectus excavatum Dumping syndrome Knee osteochondritis dessicans 09/10/2009 Right knee, left side, Saw Dr. 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 with unknown primary site (HCC) Menarche 09/15/2013 First Menstral Migraines ACH MIKAL (obstructive sleep apnea) 05/15/2024 PMH - PAST MEDICAL HISTORY OF 11/06/2008 normal color vision Postural orthostatic tachycardia syndrome PAST SURGICAL HISTORY: PAST SURGICAL HISTORY Procedure Laterality Date BACK SURGERY HX 08/21/2019 cervical spinal foraminotomy AND laminectomy COLONOSCOPY SCREENING HYSTEROSCOPY BX ENDOMETRIUMAND/POLYPC W/WO DANDC 01/28/2021 hysteroscopy [facility] for AUB UPPER ENDOSCOPIC ULTRASOUND CURRENT MEDICATIONS: pantoprazole DR (PROTONIX) 20 mg tablet Take 1 tablet by mouth once daily. CPAP/BIPAP/OTHER Type .CPAPSettings into a note to see current settings/supplies/DME information. OTC PRODUCT once daily. sulfurzym OTC NUTRITIONAL SUPPLEMENT once daily. mitocore triamcinolone acetonide (NASACORT) 55 mcg nasal inhaler Use 2 Sprays in the nose once daily. ondansetron (ZOFRAN) 4 mg tablet Take 1 tablet by mouth every 8 hours as needed for nausea/vomiting. MAGNESIUM GLYCINATE ORAL Take 200 mg by mouth once daily. ALLERGIES: ALLERGIES Allergen Reactions Gluten GI Upset Mold Other: See Comments Adhesive Tape (Ritika* Rash Cod Liver Oil Other: See Comments Doxycycline Intolerance Yeast infection all over her body Reglan [Metoclopram* Other: See Comments panic attack Sh (more content not included)...[facility]05-14-2025 NoteHNO ID: [id number] Author: RAGHU DONG MD Service: ? Author Type: Physician Type: Progress Notes Filed: 07/24/2024 09:37 Note Text: Gladys Sarah underwent L cubital tunnel release on 05/31/24. The patient returns today for virtual follow-up. The patient reports no major issues since surgery. The numbness/tingling in the L hand had improved. On exam of the L hand, the incision was healed without evidence of infection. (+) L thumb opposition. Able to make a full composite L fist. (-) claw deformity of L RF and SF. (-) atrophy of first dorsal interosseous muscle. ASSESSMENT: Post-operative state (primary encounter diagnosis) PLAN: Doing well. 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 We discussed she is doing well, and can follow up as needed. The patient is seen and examined by Dr. Dong and the following reflects his/her service. Scribed by Jairo Luis RN I agree with the Chief Complaint, ROS, and Past Histories independently gathered by the clinical operations support specialist and the remaining scribed note accurately describes my personal service to the patient. Raghu Dong MD Hand AND Upper Extremity Surgery This note was generated with voice recognition software and may contain errors, including spelling, grammar, syntax and misrecognition of what was dictated, that are not fully corrected.[facility] [id number] NoteHNO ID: [id number] Author: RGAHU DONG MD Service: ? Author Type: Physician Type: Progress Notes Filed: 07/15/2024 12:53 Note Text: Gladys Sarah underwent L cubital tunnel release on 05/31/24. The patient returns today for virtual follow-up. The patient reports no major issues since surgery. The numbness/tingling in the L hand had improved. On exam of the L hand, the incision was healed without evidence of infection. (+) L thumb opposition. Able to make a full composite L fist. (-) claw deformity of L RF and SF. (-) atrophy of first dorsal interosseous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 VERIFIED(optional for EMERGENT procedures): Patient name, Date of , Relevant allergies, and The intended procedure Time Out Communication: Intended patient and procedure match the source documents. Correct side/site marked and visible. Sign Out: SIGN OUT (optional for EMERGENT procedures): Post-procedure follow-up management communicated and Plan of Care Visit completed when applicable. Simone Gaffney. Emg tech. Alex Kearns, [facility]10-08-2024 NoteHNO ID: [id number] Author: BUCK MAZARIEGOS PA-C Service: ? Author Type: Physician Mining Consultant Type: Progress Notes Filed: 01/04/2024 15:12 Note Text: CHIEF COMPLAINT: Gladys Sarah is a 23 year old female who presents today for new evaluation of right medial elbow pain and left medial elbow pain. 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 Claims she had surgery to neck and since then with pain especially on the left side left worse than right radiating from the neck down. States the pain starts out in the left shoulder and shoots down to her left fourth and fifth finger. This has been happening very often most recently. 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 He has positive Tinel's in the cubital tunnel. I told her we will get an EMG to assess for ulnar nerve entrapment and then have her seen by one of our orthopedic elbow surgeons. In the meanwhile she was told to do warm soaks application of nonsteroidal balm to the painful areas. She rates the discomfort with nuclear is a good 8 out of 10 with 10 being worst. HISTORY OF PRESENT ILLNESS: She states that this pain has been present for the past year. Patient notes that this pain started insidiously with no inciting event. She states that this pain is about the same since onset. She notes the pain to be sharp, stabbing, and a tightness. She notes that pain is worsened with any use of the arm, repetitive motion, twisting motions, grabbing, gripping, wrist extension, wrist flexion, elbow extension, and elbow flexion. She notes that pain is improved with rest from offending activity. She notes that radiation into the wrist does occur. She notes that wrist weakness does occur. She notes associated symptoms of neck pain, wrist pain, shoulder pain, numbness in the arm, or numbness in the fingers. 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 Treatments so far have included medication () and physical therapy (completed in the past). REVIEW OF SYMPTOMS: Constitutional: patient denies any recent fever or significant change in weight Gastrointestinal: patient denies any current abdominal discomfort Musculoskeletal: as noted in the HPI Neurologic: as noted in the HPI SOCIAL HISTORY: Tobacco Use: Never ALLERGIES: ALLERGIES Allergen Reactions Gluten GI Upset Mold Other: See Comments Adhesive Tape (Ritika* Rash Doxycycline Intolerance Yeast infection all over her body Reglan [Metoclopram* Other: See Comments panic attack PAST MEDICAL HISTORY: PAST MEDICAL HISTORY Diagnosis Date Asthma Congenital pectus excavatum Dumping syndrome Knee osteochondritis dessicans 09/10/2009 Right knee, left side, Saw Dr. 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 with unknown primary site (HCC) Menarche 09/15/2013 First Menstral Migraines [facility] PMH - PAST MEDICAL HISTORY OF 11/06/2008 normal color vision Postural orthostatic tachycardia syndrome PHYSICAL EXAMINATION: Patient's vitals and nursing notes were reviewed. Vitals: LMP 07/01/2023 Skin: Skin color, texture, turgor normal, no suspicious rashes or lesions noted Psychiatric: mood and affect are appropriate, patient is oriented to time, place and person General Appearance: Well appearing, alert, in no acute distress, well-hydrated, and well nourished Cardiovascular: pedal pulses and radial pulses normal, no signs of upper or lower extremity edema Respiratory: no respiratory distress, no audible wheezing, no labored breathing, symmetric thoracic excursion Neurologic: bilateral deep tendon reflexes are normal and symmetric with no pathologic reflexes, sensation is grossly intact Lymphatic: no lymph node enlargement noted in the examined area Musculoskeletal Examination: Range of motion: full range of active and passive motion noted in all aspects of elbow and wrist flexion, extension, supination and pronation Muscle strength: normal muscle strength testing of the elbow and wrist 3/5 in all aspects Neck exam: poor active and passive ROM with no significant pain Shoulder exam: normal active and passive ROM and normal muscle strength testing Lateral epicondyle palpation: no tenderness to palpation over the common extensor tendon Medial epicondyle palpation: painful to palpation over the common flexor tendon proximal to the medial epicondyle Radial tunnel palpation: painful to palpation Resisted wrist extension: positive for weakness Schillberg test (resisted middle finger extension): positive for weakness Collateral ligament testing: no ligamentous laxity noted of the UCL or RCL Cubital tunnel: Tinel's sign positive and ulnar subluxation noted IMAGING: Final results and radi (more content not included)...[facility]10-08-2024 NoteHNO ID: [id number] Author: IVELISSE DEGROOT RT(R) Service: Radiology Author Type: Technologist Type: Progress Notes Filed: 12/19/2023 14:42 Note Text: Radiology Service Progress Note PATIENT NAME: Gladys Sarah DATE OF SERVICE: December 19, 2023 TIME: 2:42 PM PATIENT IDENTITY VERIFICATION COMPLETED USING TWO (2) IDENTIFIERS: Name and Date of confirmed by patient verbally. FALL SCREENING: Has the patient had 2 falls in the last year or 1 fall with injury or currently using an Ambulatory Assistive Device (Walker, Cane, Wheelchair, Crutches, etc.)? No PATIENT GENDER DATA: Female. status: : No status: NO. PATIENT RELEVANT IMPLANT DATA REVIEWED: Not Applicable PATIENT PRESENTS WITH AN IMPLANTABLE OR ATTACHED NECK SKEWER: No RADIOLOGY DEPARTMENT: General X-ray: Exam(s) Completed: Upper Extremity X-Ray(s): Elbow, bilateral PERIPHERAL IV DATA: Not applicable SIGNED BY: RT [place](R) December 19, 2023 2:42 [facility]06-24-2024 NoteHNO ID: [id number] Author: ARMANI TRIMBLE PA-C Service: ? Author Type: Physician Mining Consultant Type: Progress Notes Filed: 09/04/2023 15:32 Note Text: [facility] Hematology Oncology AND Blood Disorders Established Patient Visit Note This visit is a Virtual MyChart video encounter which required patient-provider interaction for the medical decision making as documented below. Persons Present: patient Gladys Sarah consented to this distance health encounter. Total Time Spent: I spent a total of 30 minutes on the date of the service which included preparing to see the patient, [id number] patient care, completing clinical documentation, obtaining and/or reviewing separately obtained history, performing a medically appropriate examination, counseling and educating the patient/family/caregiver, and ordering medications, tests, or procedures. I have communicated my name and active licensure. The patient's identity and physical location were verified at the time of this visit. 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 (Elements copied from my previous note dated 02/24/23, have been reviewed and updated where appropriate, and all reflect current assessment and medical decision making during today's encounter, 09/04/2023.) PATIENT NAME: Gladys Sarah DATE OF SERVICE: September 04, 2023 REASON FOR VISIT: follow up for anemia HISTORY OF THE PRESENT ILLNESS: 02/24/23 A/P: Ms. Driver is a 23 year old female with PMHx significant for POTS, mild intermittent asthma, migraines, hypothalamic amenorrhea?, COVID 19 infection in Mar 2020,TBI/concussion x2 necessitating cervical decompression and laminectomy/foraminotomy, and post-concussive syndrome who presented for follow up evaluation for iron deficiency anemia. She was initially treated with PO iron supplementation, but was unable to tolerated due to nausea. She was then treated with IV Venofer 300mg weekly x3 doses, which she tolerated well. After receiving her infusions, her symptoms all resolved. Her CBC and iron studies also showed stable hemoglobin (13.4) and resolution of her iron deficiency. We continued to monitor patient off iron supplementation. During that time, her fatigue has started to return and some of her POTS symptoms flared due to a cold/illness. Her hemoglobin remained stable at that time, but patient was noted to have a vitamin D deficiency and was started on weekly Vitamin D supplementation. 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 At this time, I recommend repeating CBC and nutritional studies to assess for recurrence of her vitamin deficiencies. I will notify the patient once these results are available and we will discuss treatment options and follow-up at that time. She is agreeable with this plan and all questions were answered to satisfaction. Interval HPI: Previous iron levels were normal back in February 2023 - did not receive further infusions Diagnosed with sleep apnea - compliant with her CPAP Fatigue has significantly improved since wearing CPAP Denies any new dyspnea, chest pain, palpitations, dizziness, or abnormal bleeding Recently was in [place] - had a few episodes where she had to lay down while out in the sun, but tolerated much better than she has in the past PAST MEDICAL HISTORY: PAST MEDICAL HISTORY Diagnosis Date Asthma Congenital pectus excavatum Dumping syndrome Knee osteochondritis dessicans 09/10/2009 Right knee, left side, Saw Dr. 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 with unknown primary site (HCC) Menarche 09/15/2013 First Menstral Migraines [facility] PMH - PAST MEDICAL HISTORY OF 11/06/2008 normal color vision Postural orthostatic tachycardia syndrome PAST SURGICAL HISTORY: PAST SURGICAL HISTORY Procedure Laterality Date BACK SURGERY HX 08/21/2019 cervical spinal foraminotomy AND laminectomy COLONOSCOPY SCREENING HYSTEROSCOPY BX ENDOMETRIUMAND/POLYPC W/WO DANDC 01/28/2021 hysteroscopy DANNC for AUB UPPER ENDOSCOPIC ULTRASOUND CURRENT MEDICATIONS: CPAP/BIPAP/OTHERType .CPAPSettings into a note to see current settings/supplies/DME information.Disp: 1 EachRfl: 0 CPAP/BIPAP/OTHERType .CPAPSettings into a note to see current settings/supplies/DME information.Disp: 1 EachRfl: 0 famotidine (PEPCID) 40 mg tabletTake 1 tablet by mouth daily at bedtime.Disp: 30 tabletRfl: 11 CPAP/BIPAP/OTHERNEW DEVICE SET-UP: AUTO CPAP with settings of 5-15 cm H2O. Lifetime supplies for AUTO CPAP, including patient preferred mask, head gear, heated tubing, humidity, filters, chin strap. Dx: Obstructive Sleep Apnea G47.33 DME: [facility] [place] (more content not included)...[facility]06-29-2023 NoteHNO ID: [id number] Author: RT Nely(R) Service: ? Author Type: Technologist Type: Progress Notes Filed: 09/08/2022 12:13 PM Note Text: Radiology Service Progress Note PATIENT NAME: Gladys Sarah DATE OF SERVICE: September 08, 2022 TIME: 12:09 PM PATIENT IDENTITY VERIFICATION COMPLETED USING TWO (2) IDENTIFIERS: Name and Date of confirmed by patient verbally. FALL SCREENING: Has the patient had 2 falls in the last year or 1 fall with injury or currently using an Ambulatory Assistive Device (Walker, Cane, Wheelchair, Crutches, etc.)? No PATIENT GENDER DATA: Female. status: : No status: NO. PATIENT RELEVANT IMPLANT DATA REVIEWED: Not Applicable RADIOLOGY DEPARTMENT: MR; Exam(s) Completed: Lower MSK: Knee, right PERIPHERAL IV DATA: Not applicable SIGNED BY: [facility] September 08, 2022 12:09 [facility]08-11-2022 Hospital Discharge instructions Patient Education 10/21/2021 01:22:47 Symptoms With Uncertain Cause Symptoms With Uncertain Cause (Adult) You have been examined, and tests may have been done. However, the exact cause of your symptoms is still not certain. Watch for any new symptoms or worsening of your condition. Another exam or more testing at a later time may be needed. Unless told otherwise, you can go back to your normal routine.Continue to take prescribed medicines as directed. Contact your healthcare provider if you have questions or concerns. Follow-up care Follow up with your healthcare provider if your symptoms do not begin to improve in the next few days, or as advised by our staff. When to seek medical advice Call your healthcare provider if your symptoms get worse or if new symptoms appear. [phone] The [employer]. [address] [place] [address]. All rights reserved. This information is not intended as a substitute for professional medical care. Always follow yourhealthcare professional's instructions. Follow Up Care 10/20/2021 23:43:10 With:NASREEN PEREZ MD Address: [address] [place] [id number]- When:2-4 days [facility] 08-11-2022 Note Discharge Instructions Thank you for allowing [facility] to assist you with your healthcare needs. The following is importantdischarge information regarding your hospital visit. Diagnosis from Today's Visit Unresponsive Seizure What to Do Next Instructions from Your Care Team No qualifying data available. Post Acute Orders No qualifying data available. You Need to Schedule the Following Appointments Follow Up with NASREEN PEREZ MD When Within 2-4 days Where: [address] [place], [place] [id number]- Allergies Reglan Medications Please ask your primary doctor or pharmacist before taking any other medication not listed, including over the counter drugs, herbal medications, vitamins and or supplements as they may interact withyour home medications. What How Much When Why Instructions Last Dose New LORazepam (Ativan 1 mg oral tablet) 1 tab(s) by mouth Three (3) times a day as needed for as needed for anxiety Unresponsive Duration: 3 Days Printed Prescription Unchanged baclofen (baclofen 10 mg oral tablet) take 1 tablet by mouth three times a day if needed for muscle spasm Unchanged drospirenone-ethinyl estradiol (drospirenone-ethinyl estradiol 3 mg- 0.02 mg oral tablet) take 1 tablet by mouth daily Unchanged ibuprofen (Motrin) 400 Milligram by mouth Every 6 hours Unchanged ondansetron (Zofran ODT 4 mg oral tablet, disintegrating) 1 tab(s) by mouth Three (3) times a day Influenza Urinary tract infection Duration: 3 Days Unchanged spironolactone (spironolactone 100 mg oral tablet) take 1 tablet by mouth every evening Please take this list to your next doctor s visit. Bring all medications you take, including over the counter medications, herbals and other supplements with you to your doctor s visit. Patients and families are reminded to discard old lists and to update any records with all medication providers or retail pharmacies. Education Materials Symptoms With Uncertain Cause (Adult) You have been examined, and tests may have been done. However, the exact cause of your symptoms is still not certain. Watch for any new symptoms or worsening of your condition. Another exam or more testing at a later time may be needed. Unless told otherwise, you can go back to your normal routine.Continue to take prescribed medicines as directed. Contact your healthcare provider if you have questions or concerns. Follow-up care Follow up with your healthcare provider if your symptoms do not begin to improve in the next few days, or as advised by our staff. When to seek medical advice Call your healthcare provider if your symptoms get worse or if new symptoms appear. [phone] [employer]. [address] [place] [address], [place] [address]. All rights reserved. This information is not intended as a substitute for professional medical care. Always follow yourhealthcare professional's instructions. Additional Information VACCINATE! IT SAVES LIVES! Members of the community who have not yet received the COVID-19 vaccine and would like to receive it can visit one of [facility] vaccine clinics. There are many vaccine clinic locations within the [facility]. For locations and available times, please visit [email or web address]. It is important to note that some COVID mobile vaccine clinics are held outdoors and may be canceled in rainy orstormy conditions. To learn more about pediatric vaccinations (ages 5-11), we invite you to visit the [facility] webpage. [email or web address] learn more about the COVID-19 vaccine, we invite you to visit the [facility] website for a list of frequently asked questions. [email or web address] [facility] Patient Portal Access Instructions: Stay connected with your healthcare team and access your personal medical information anytime with the [facility] Patient Portal. If you would like a full copy of your medical records please contact the [facility] Medical Records Department Monday through Monday between 8a.m. and 4:30p.m. Please follow the directions below to access the portal: 1.Access the email account you provided upon registration to the [facility].2.Look for an invitation email from [facility].3.Open the email and access the invitation link: Accept Invitation to [facility]4.Fill in the required case to create your account. Sign into [email or web address] with your username and password that you created in the above steps to stay up to date. You can then view a summary of results, a summary of your visits, and the ability to download your summaries to your computer or send the information securely to a physician. Remember that your healthcare information is confidential, so carefully consider who you will allow to register on the [employer] Patient Portal for access to your information. You can also access the [employer] Patient Portal on the [employer]. Simply click on Health Records under [employer] and then click on the [employer] logo. HOW TO SAFELY DISPOSE OF PRESCRIPTION MEDICATIONS Please use one of the following methods to safely dispose of your unused medications. 1.Use a drug disposal kit: the drug disposal pouch allows you to safely discard your old and unuseddrugs. Ask your nurse to give you one when you are discharged.2.Visit a local take-back location: Many local pharmacies and police departments have programs that collect old and unwanted prescriptiondrugs. Call your local pharmacy or go to http://[employer].ConsortiEX/9T8Kl7e to find one close to you.3.Make use of household items: Use cat litter or old coffee grounds to dispose medications if other options arenot available. Mix your drugs with these household products, seal them in an airtight container andthrow it into the garbage. Call [facility]: [phone] to be sure your drugs can be disposed of in this way. Some medicines may require a different approach.4.Never flush your medications down the toilet. IF YOU HAVE BEEN PRESCRIBED AN OPIOIDS FOR PAIN If you have been prescribed an opioid (such as hydrocodone, oxycodone or morphine), it is critical to understand the possible side effects and risks of opioid pain medications. Even when taken as directed, opioids can have several side effects including: Tolerance, meaning you might need to take more of a medication for the same pain relief. Nausea, vomiting and/or constipation. Sleepiness, dizziness, dry mouth, confusion, depression or itching. Physical dependence, meaning you have withdrawal symptoms when a medication is stopped ? this can develop within a few days. KNOW YOUR RESPONSIBILITIES It is important to know exactly how much and how often to take the opioid pain medications you are prescribed. Never take opioids in higher amounts or more often than prescribed. Do not combine opioids with alcohol or other drugs that cause drowsiness, such as benzodiazepines, also known as benzos,including diazepam and alprazolam, muscle relaxants or sleep aids. Never sell or share prescriptionopioids. This is illegal. Store opioids in a secure place and out of reach of others (including children, family, friends and visitors). The last page(s) of this document has been signed and retained as a CHART COPY Signatures Patient Education Materials Symptoms With Uncertain Cause Medication Leaflets My discharge plan and instructions have been reviewed and explained to me and I,JESSICA SARAHMARINO Esther understand my current condition and have read and understand these discharge instructions. I have received a written copy of the plan/instructions. If I have questions, I am aware that I should contactmy doctor. 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 [employer] Signature: Date/Time: Relationship to Patient: Witness Name/Signature: [facility] No data available for this section [facility] Evaluation noteNo assessment information available [facility] Work Phone: Evaluation note* Diagnosis Onset Date Resolution Status Abdominal pain acute [facility] Work Phone: Reason for referral (narrative)No reason for referral [facility] Work Phone: Summary note* EHSAN Yoder: PERFORM Event Display: Patient Summary Documents Authored Date: [id number] [facility] Summary Purpose Family History No Family History Records FoundNo Family History Records FoundNo Family History Records FoundNo Family History Records FoundNo Family History Records FoundNo Family History Records FoundNo Family History Records FoundNo Family History Records Found Advance Directives No Advanced Directives Records Found Advance Directive Response Recorded Date/ Time Living Will No January 22 1:57pm Power of Lens Cutter No January 22, 2021 1:57pm Advance Directive Response Recorded Date/ Time Living Will No December 30 10:46am Power of Lens Cutter No December 30, 2021 10:46am Chief Complaint and Reason for Visit Chief Complaint PALPITATIONS EDS,GONCALVES? PT HAS RX Chief Complaint NAUSEA EORDER EDS,GONCALVES? PT HAS RX Reason for Visit Abdominal pain Chief Complaint Admit Date BPPV RX HERE March 04, 2024 9:00am 1 Y FU April 29, 2024 3:32pm INT LAB ORDERS May 24, 2024 3:1 1pm Reason for Visit Admit Date Dumping syndrome April 29, 2024 3:32pm Gastric intestinal metaplasia April 132024 3:32pm Abdominal pain April 29, 2024 3:32pm Chief Complaint Admit Date BPPV RX HERE March 04, 2024 9:00am 1 Y FU April 29, 2024 3:32pm INT LAB ORDERS May 24, 2024 3:1 1pm MALARIA June 25, 2024 8:5 1am LT ELBOW PAIN/PT HAS RX June 26, 2024 4:30pm Chief Complaint Admit Date 1 Y FU April 29, 2024 3:32pm INT LAB ORDERS May 24, 2024 3:1 1pm MALARIA June 25, 2024 8:5 1am LT ELBOW PAIN/PT HAS RX July 05, 2024 3:30pm 4 M FU August 27, 2024 10:3 3am Chief Complaint Admit Date MALARIA June 25, 2024 8:5 1am LT ELBOW PAIN/PT HAS RX July 05, 2024 3:30pm 4 M FU August 27, 2024 10:3 3am Reason for Visit Admit Date Autoimmune gastritis August 27, 2024 10: 33am Dumping syndrome August 27, 2024 10:3 3am Gastric intestinal metaplasia August 27, 2024 10:33am GERD (gastroesophageal reflux disease) J [facility] 2024 10:33am Abdominal pain August 27, 2024 10:3 3am Additional Source Comments INFORMATION SOURCE (unrecogn ized section and content) DATE CREATED AUTHOR 08/31/2017 [facility] DATE CREATED AUTHOR AUTHOR'S ORGANIZ ATION 11/08/2021 [facility] ([place]) DATE CREATED AUTHOR AUTHOR'S ORGANIZ ATION 09/09/2022 [facility] DATE CREATED AUTHOR AUTHOR'S ORGANIZ ATION 07/08/2023 [facility] DATE CREATED AUTHOR AUTHOR'S ORGANIZ ATION 06/04/2024 [facility] DATE CREATED AUTHOR AUTHOR'S ORGANIZ ATION 08/18/2024 [facility] DATE CREATED AUTHOR AUTHOR'S ORGANIZ ATION 08/27/2024 [facility] DATE CREATED AUTHOR AUTHOR'S ORGANIZ ATION 11/13/2024 [facility] Goals (unrecognized section and content) Goals may be documented in a n alternate sectionGoals may be documented in an alternate section No data available for this sectionGoals may be documented in an alternate sectionGoals may be documented in an alternate sectionGoals may be documented in an alternate sectionGoals may be documented in an alternate sectionGoals may be documented in an alternate section Care Team (unrecognized sect ion and content) Care Team Personnel Name: NASREEN PEREZ MD Member Role: Primary Care Physician Address: Address: [address] [place] [address]- Care Team Related Persons Name: YANETH RAUSCH Address: [address] [place] [address] Care Teams (unrecognized sec tion and content) Team Status: Active Member Role Status Dates Dr. Nasreen Perez MD Family Provider Active Dr. Sarah Rodriguez DO Primary Care Provider Active Team Status: Inactive Member Role Status Dates Dr. Sarah Rodriguez DO Primary Care Provider Active Start: March 04, 2024 End: March 04, 2024 Dr. Sarah Rodriguez DO Attending Provider Active Start: March 04, 2024 End: March 04, 2024 Dr. Sarah Rodriguez DO Referring Provider Active Start: March 04, 2024 End: March 04, 2024 Team Status: Inactive Member Role Status Dates Dr. Sarah Rodriguez DO Primary Care Provider Active Start: April 29, 2024 End: April 29, 2024 Dr. Sarah Rodriguez DO Referring Provider Active Start: April 29, 2024 End: April 29, 2024 Dr. Alvarado Alfonso DO Attending Provider Active Start: April 29, 2024 End: April 29, 2024 Team Status: Inactive Member Role Status Dates Dr. Sarah Rodriguez DO Primary Care Provider Active Start: April 29, 2024 End: April 29, 2024 Dr. Alvarado Alfonso DO Attending Provider Active Start: April 29, 2024 End: April 29, 2024 Dr. Alvarado Alfonso DO Referring Provider Active Start: April 29, 2024 End: April 29, 2024 Team Status: Inactive Member Role Status Dates Dr. Sarah Rodriguez DO Primary Care Provider Active Start: May 24, 2024 End: May 24, 2024 Dr. Alvarado Alfonso DO Attending Provider Active Start: May 24, 2024 End: May 24, 2024 Dr. Alvarado Alfonso DO Referring Provider Active Start: May 24, 2024 End: May 24, 2024 Team Status: Inactive Member Role Status Dates Dr. Sarah Rodriguez DO Primary Care Provider Active Start: June 05, 2024 End: June 05, 2024 Dr. Dewayne Mcgregor MD Attending Provider Active Start: June 05, 2024 End: June 05, 2024 Dr. Dewayne Mcgregor MD Referring Provider Active Start: June 05, 2024 End: June 05, 2024 Team Status: Active Member Role Status Dates Dr. Sarah Rodriguez DO Primary Care Provider Active Team Status: Inactive Member Role Status Dates Dr. Sarah Rodriguez DO Primary Care Provider Active Start: June 25, 2024 End: June 25, 2024 Dr. Dewayne Mcgregor MD Attending Provider Active Start: June 25, 2024 End: June 25, 2024 Dr. Dewayne Mcgregor MD Referring Provider Active Start: June 25, 2024 End: June 25, 2024 Team Status: Active Member Role Status Dates Dr. Sarah Rodriguez DO Primary Care Provider Active Start: June 26, 2024 TAMIKA MELENDEZ Attending Provider Active St art: June 26, 2024 TAMIKA MELENDEZ Referring Provider Active St art: June 26, 2024 Team Status: Active Member Role Status Dates Dr. Sarah Rodriguez DO Primary Care Provider Active Start: July 05, 2024 TAMIKA MELENDEZ Attending Provider Active St art: July 05, 2024 TAMIKA MELENDEZ Referring Provider Active St art: July 05, 2024 Team Status: Inactive Member Role Status Dates Dr. Sarah Rodriguez DO Primary Care Provider Active Start: August 27, 2024 End: August 27, 2024 Dr. Sarah Rodriguez DO Referring Provider Active Start: August 27, 2024 End: August 27, 2024 Dr. Alvarado Alfonso DO Attending Provider Active Start: August 27, 2024 End: August 27, 2024 Team Status: Active Member Role/Relationship Status Dates Dr. Sarah Rodriguez DO Primary Care Provider Active Team Status: Inactive Member Role/Relationship Status Dates Dr. Sarah Rodriguez DO Primary Care Provider Active Start: June 25, 2024 End: June 25, 2024 Dr. Dewayne Mcgregor MD Attending Provider Active Start: June 25, 2024 End: June 25, 2024 Dr. Dewayne Mcgregor MD Referring Provider Active Start: June 25, 2024 End: June 25, 2024 Team Status: Inactive Member Role/Relationship Status Dates Dr. Sarah Rodriguez DO Primary Care Provider Active Start: July 05, 2024 End: July 05, 2024 TAMIKA MELENDEZ Attending Provider Active St art: July 05, 2024 End: July 05, 2024 TAMIKA MELENDEZ Referring Provider Active St art: July 05, 2024 End: July 05, 2024 Team Status: Inactive Member Role/Relationship Status Dates Dr. Sarah Rodriguez DO Primary Care Provider Active Start: August 27, 2024 End: August 27, 2024 Dr. Sarah Rodriguez DO Referring Provider Active Start: August 27, 2024 End: August 27, 2024 Dr. Alvarado Alfonso DO Attending Provider Active Start: August 27, 2024 End: August 27, 2024 FOR RECORDS PERTAINING TO PATIENTS WHO ARE OR HAVE BEEN ENROLLED IN A CHEMICAL DEPENDENCY/SUBSTANCEABUSE PROGRAM, SOME INFORMATION MAY BE OMITTED. This clinical summary was aggregated from multiple sources. Caution should be exercised in using it in the provision of clinical care. This summary normalizes information from multiple sources, and as a consequence, information in this document may materially change the coding, format and clinical context of patient data. In addition, data may be omitted in some cases. CLINICAL DECISIONS SHOULD BE BASED ON THE PRIMARY CLINICAL RECORDS. [employer] [facility]. provides no warranty or guarantee of the accuracy or completeness of information in this document.
--- NOTE | 2024-11-16 22:35 | EDS_ITS ---
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 She states that she went to remove her hearing aids earlier today and noticed that the ends had become dislodged and were stuck in her ears. She reports that she tried getting them out at home. However she was unsuccessful and she states she was going to wait until her urgent care open in the morning but they become more painful and secondary to this she presents for evaluation [facility] Medical History (Updated 11/17/24 @ 02:[address] Andre Dorantes, DO) Nohemi-Danlos disease Mast cell disease POTS (postural orthostatic tachycardia syndrome) Carcinoid tumor Abnormal uterine bleeding (AUB) Injury of back Injury of head and neck Dietary restriction Non-smoker History of echocardiogram Asthma Home Medications ?Medication ?Instructions ?Recorded ?Last Taken ?Type magnesium glycinate 100 mg (as 100 mg PO QDAY 04/24/17 Unknown History glycinate) tablet ondansetron HCl 4 mg tablet 4 mg PO Q6H PRN PRN for na usea #60 08/28/23 Unknown Rx TABLETS Allergy/AdvReac Type Severity Reaction Status Date / Time adhesive Allergy Rash Verified 11/16/24 20:48 doxycycline Allergy Other Verified 11/16/24 20:48 gluten AdvReac Other Verified 11/16/24 20:48 metoclopramide (From Reglan) AdvReac Other Verified 11/16/24 20:48 metoclopramide HCl (From AdvReac Other Verified 11/16/24 20:48 Reglan) Surgical History Hx of dilation and curettage History of back surgery Hx of colonoscopy History of esophagogastroduodenoscopy (EGD) Hx of excision of lamina of cervical vertebra for decompression of spinal cord Social History Smoking Status: Never smoker alcohol intake: never ROS ROS ED Constitutional Constitutional ED: Denies chills or fever(s) ENT ENT ED: Reports other Details: Positive bilateral ear pain; negative ear discharge Respiratory/Chest Respiratory/Chest: Denies cough or dyspnea Gastrointestinal Gastrointestinal: Denies abdominal pain, diarrhea, nausea or vomiting Musculoskeletal Musculoskeletal: Denies myalgias Integumentary Denies rash Neurologic Neurologic: Denies headache(s) Hematologic/Lymphatic Hematologic/Lymphatic: Denies easy bleeding or easy bruising EXAM Physical Exam Const Vital Signs: 11/16/24 20:48 11/16/24 22:17 11/16/24 22:36 Temperature 96.8 F L 96.8 F L Temperature Source Temporal Pulse Rate 93 93 Respiratory Rate 16 16 Respiratory Effort Normal Non-Labored Respiratory Pattern Normal Blood Pressure 116/75 116/75 Blood Pressure Mean 88 88 Pulse Ox 99 99 Oxygen Delivery Method Room Air Positive well nourished and well developed General Appearance ED: well developed; Negative for pallor HEENT HEENT Narrative: Normocephalic atraumatic In the left and right ear canal and there is a clear circular foreign object consistent with retained hearing aid piece. No active bleeding noted. No purulent discharge. No pain with palpation of either mastoid region Eyes PERRL and EOMs intact bilaterally Neck supple Resp normal respiratory effort and clear to auscultation bilaterally Cardio regular rate and regular rhythm Extremity normal to inspection Neuro oriented x3, CN's II-XII intact bilaterally and no sensory deficits noted Sensorium / Orientation: alert Motor Exam: strength 5/5 throughout Psych mental status grossly normal Skin no rashes or lesions noted and no wounds General Skin Exam: Negative for jaundice or pallor MDM MDM MDM Narrative Medical decision making narrative: Patient presented to the ER with stable vitals. She reported the foreign objects have been in place for roughly 12 hours and now are becoming painful. By physical exam there is no sign of otitis externa or mastoiditis. Needle-nose forceps were used to remove both the left and right foreign object and 1 complete piece. On reevaluation there is no sign of otitis media or tympanic membrane rupture. Therefore this time as the foreign objects have been removed and she does not have signs of secondary infection or tympanic membrane injury there is no need for further intervention and she is otherwise safe for discharge. Discharge Plan Triage Chief Complaint: Foreign Body ED Provider: Andre Dorantes Dx/Rx/DC Orders Clinical Impression: Foreign body in ear, bilateral, Postural orthostatic tachycardia syndrome [POTS], Nohemi-Danlos syndrome Prescriptions: No Action magnesium glycinate 100 mg tablet 100 mg PO QDAY ondansetron HCl 4 mg tablet 4 mg PO Q6H PRN PRN (Reason: for nausea) Qty: 60 5RF Primary Care Provider: Sarah Ponce Referrals: Sarah Ponce DO [Primary Care Provider] - Print Language: Maori Disposition Disposition: Home, Self Care Discharge Date/Time: 11/16/24 22:36
[2024-11-16 22:36] VITALS: BP 116/75; PULSE 93; RESP 16; TEMP 36; O2SAT 99
== END 2024-11-16 22:36 | disposition home or self-care (01) ==
PROVIDERS: Emergency Provider Emergency Medicine; PCP Internal Medicine; Visit Provider Emergency Medicine
DX: T16.1XXA Foreign body in right ear, initial encounter (principal); Q79.60 Ehlers-Danlos syndrome, unspecified; T16.2XXA Foreign body in left ear, initial encounter; G90.A Postural orthostatic tachycardia syndrome [POTS]; W44.G1XA Audio device entering into or through a natural orifice, initial encounter
CPT/HCPCS: 99282

== ENCOUNTER 2024-11-21 08:49 | Day surgery (SDC) | payer OTHER, SELFPAY ==
--- NOTE | 2024-11-19 13:02 | PAT.ANE_ITS ---
Pre-Assessment Diagnosis/Proposed Procedure Planned Operative Procedure(s): EGD- PH PROBE Anesthesia History Anesthesia History - family mediator: Anesthesia History - family mediator Hx Hospitalization No 11/19/24 11:34 Any Problems With Anesthesia Yes: N/V, VERY SLEEPY 11/19/24 11:34 GENERAL ANESTHESIA Cholinesterase deficiency No 11/19/24 11:34 You/Your Family Experience No 11/19/24 11:34 fever (hyperthermia) with Relationship Recent Exposure to Contagious No 01/03/22 09:30 Disease Does patient have nerve No 11/19/24 11:34 stimulator Patient instructed to have device shut off --Does patient have Pacemaker or ICD? When Was Last Pacemaker Check QUESTION #4 FULL TEXT: You/Your Family Experience fever (hyperthermia) with Anesthesia Last Oral Intake Last Oral intake: Last Oral Intake NPO since Meds taken in AM with sips of water? Meds patient instructed to take am of surgery PONV PONV - family mediator: PONV - family mediator Female Yes 11/19/24 11:34 HX of Motion Sickness Yes 11/19/24 11:34 HX of N/V After Surgery Yes 11/19/24 11:34 Non-Smoker Yes 11/19/24 11:34 Duration of Surgery greater No 11/19/24 11:34 than 60 minutes Number of Risk Factors 4 11/19/24 11:34 PONV Score Severe Risk 11/19/24 11:34 Height & Weight Height & Weight: Anesthesia: Height & Weight Height 5 ft 8 in 01/18/22 14:55 Respiratory Assessment Respiratory Assessment - family mediator: Respiratory Tract Infection Hx - family mediator Hx Respiratory Tract Infection No 11/19/24 11:34 STOP Sleep Apnea STOP Sleep Apnea - family mediator: STOP Sleep Apnea - family mediator Hx Hypertension No 11/19/24 11:34 Hx Sleep Apnea Yes 11/19/24 11:34 CPAP Yes 11/19/24 11:34 BIPAP No 11/19/24 11:34 Do you snore loudly (louder than talking or can be heard Do you often feel tired/ fatigued/ sleepy during daytime? Has anyone observed you stop breathing during sleep? STOP Results Positive 11/19/24 11:34 QUESTION #5 FULL TEXT : Do you snore loudly (louder than talking or can be heard through closed doors)? 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 Specify any problems Hx of Preganancy in last 3 No 11/19/24 11:34 Months Nurse Filling Out Transfusion [id number] 11/19/24 11:34 & Questions: Date: 11/19/24 11/19/24 11:34 Time: 11:36 11/19/24 11:34 Patient unable to answer at this time (ie. confused, unrespo /Reproduction History /Reproductive History - family mediator: /Reproductive Hx- family mediator Hx Now No 11/19/24 11:34 Gestational Age (in weeks): EDC: Hx Hx Para Hx Section SAB No 11/19/24 11:34 PFSH Medical History (Updated 11/19/24 @ 11:41 by Luís Layne) Auditory processing disorder Wears hearing aid Low iron Gastric reflux Nohemi-Danlos disease Mast cell disease POTS (postural orthostatic tachycardia syndrome) Carcinoid tumor Abnormal uterine bleeding (AUB) Injury of back Injury of head and neck Dietary restriction Non-smoker History of echocardiogram Asthma Home Medications ?Medication ?Instructions ?Recorded ?Last Taken ?Type magnesium glycinate 100 mg (as 100 mg PO QDAY 04/24/17 Unknown History glycinate) tablet ondansetron HCl 4 mg tablet 4 mg PO Q6H PRN PRN for na usea #60 08/28/23 Unknown Rx TABLETS MITOCORE 2 tab PO DAILY 11/19/24 Unkn own History SULFURZYME 2 tab PO DAILY 11/19/24 Unkn own History digestive enzymes 2 tab PO TID 11/19/24 Unknow n History Allergy/AdvReac Type Severity Reaction Status Date / Time adhesive Allergy Rash Verified 11/19/24 11:29 doxycycline Allergy Other Verified 11/19/24 11:29 gluten AdvReac Other Verified 11/19/24 11:29 metoclopramide (From Reglan) AdvReac Other Verified 11/19/24 11:29 metoclopramide HCl (From AdvReac Other Verified 11/19/24 11:29 Reglan) Surgical History (Updated 11/19/24 @ 11:41 by Luís Layne) H/O decompression of ulnar nerve Hx of dilation and curettage History of back surgery Hx of colonoscopy History of esophagogastroduodenoscopy (EGD) Hx of excision of lamina of cervical vertebra for decompression of spinal cord Social History Smoking Status: Never smoker alcohol intake: never Audit: Pertinent Findings Pertinent Findings Echo (EF%) pertinent findings: April 15, 2021. EF of 55%. PASP is 19 mmHg. No aortic valve stenosis noted. Recommendation Anesthesia Recommendation Anesthesia recommendation: OPTIMIZED for anesthesia
[2024-11-21] VITALS (9 sets, daily range): BP systolic 94–109; BP diastolic 63–75; PULSE 66–81; RESP 16–18; TEMP 36.6–37.2; O2SAT 97–100; BMI 22.9
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
[2024-11-21 09:23] LABS: Internal QC Validated? YES +Cl - CLEAR BKGD; Pregnancy, Urine Negative Negative; Record Kit Lot#,Urine Preg 964736
--- NOTE | 2024-11-21 09:30 | EGD_PTH ---
PATIENT: GLADYS BARBA LOC: EN U#:[id number] AGE/SX: 24/F ROOM: RE11/21/[address]: Dr. Alvarado Alfonso DO : 2000 BED: DIS: 11/21/2024 SPEC #: [id number] RECD: 11/21/24 14:48 STATUS: LUZ REQ #: [id number] PRASHANT: 11/21/24 09:[address]: Alvarado Alfonso DEPT: SURGICAL PATHOLOGY RECD BY: Himanshu Chase ENTERED: 11/21/24 15:20 SP TYPE: EGD BIOPSY LORY DR: Dr. Sarah Ponce DO Tissues: A - Esophagus, NOS Procedures: Surgery Specimen Level IV HEADER OPERATION: EGD with biopsy PRE-OP DIAGNOSIS: GERD, dumping syndrome, abdominal pain, autoimmune gastritis TISSUE SUBMITTED: A- Distal esophagus biopsy MICROSCOPIC DIAGNOSIS A. Distal esophagus, biopsy: Oxyntocardiac type mucosa with mild chronic inflammation and foveolar hyperplasia, negative for goblet cells Squamous epithelium is not identified MICROSCOPIC DESCRIPTION Slides are reviewed. GROSS DESCRIPTION A. Received in fixative is one container labeled with the patient's name and designated Distal esophagus biopsy. The specimen consists of two irregular fragments of light dean soft tissue that measure 0.5 and 0.8 cm. The specimen is totally submitted in one cassette. MO 11/21/2024 CPT:67539
--- NOTE | 2024-11-21 09:30 | PRE.ANES_ITS ---
ASA Classification* ASA Classification ASA Classification: 2 Assessment & Plan Anesthesia* Anesthesia Assessment Anesthesia Assessment: Discussed sedation and/or anesthesia options, risks, benefits, and alternatives with patient/parents/legal guardian/POA. Questions invited. The patient/parents/legal guardian/POA seems to understand and agrees to proceed with anesthesia plan. Reviewed the physical assessment, medical history, allergy history and patient home medications list prior to surgery/procedure/anesthetic and documented any changes. Performed airway and anesthesia risk assessments. Anesthesia Type Anesthesia Type: MAC History Source History Obtained from:: Patient and Chart Anesthesia Focused Assessment* Temperature: 98.9 F Pulse Rate: 81 Blood Pressure: 107/68 Respiratory Rate: 18 Pulse Ox: 100 Oxygen Delivery Method: Room Air Airway Assessment Mouth opens: >3 cm Mallampati Score: I Teeth Condition: Intact Neck Range of motion (ROM): Full ROM Labs Anesthesia Preop lab: CBC WBC 5.8 K/mm3 (4.4-11.0) 06/05/24 15:55 06/05/24 RBC 4.90 M/mm3 (4.2-5.4) 06/05/24 15:55 06/05/24 Hgb 13.8 g/dL (12.0-15.0) 06/05/24 15:55 06/05/24 Hct 41.0 % (37-47) 06/05/24 15:55 06/05/24 Plt Count 347 K/mm3 (150-450) 06/05/24 15:55 06/05/24 CHEMISTRY Potassium 3.6 mmol/L (3.3-5.1) 05/24/24 15:05/24/24 Sodium 138 mmol/L (133-145) 05/24/24 15:29 05/24/24 BUN 6 mg/dL (4-19) 05/24/24 15:05/24/24 Creatinine 0.61 mg/dL (0.70-1.20) L 05/24/24 15: Glucose 78 mg/dL (70-99) 05/24/24 15:05/24/24 TSH 1.81 uIU/mL (0.358-3.74) 06/09/17 09:50 COAG Urine Test Negative Negative 11/21/24 09:16 11/21/24 Pre-Assessment Diagnosis/Proposed Procedure Planned Operative Procedure(s): EGD- PH PROBE Anesthesia History Anesthesia History - housecleaner floor: Anesthesia History - housecleaner floor Hx Hospitalization No 11/19/24 11:34 Any Problems With Anesthesia Yes: N/V, VERY SLEEPY 11/19/24 11:34 GENERAL ANESTHESIA Cholinesterase deficiency No 11/19/24 11:34 You/Your Family Experience No 11/19/24 11:34 fever (hyperthermia) with Relationship Recent Exposure to Contagious No 01/03/22 09:30 Disease Does patient have nerve No 11/19/24 11:34 stimulator Patient instructed to have device shut off --Does patient have Pacemaker No 11/21/24 09:18 or ICD? When Was Last Pacemaker Check QUESTION #4 FULL TEXT: You/Your Family Experience fever (hyperthermia) with Anesthesia Last Oral Intake Last Oral intake: Last Oral Intake NPO since 00:00 11/21/24 09:18 Meds taken in AM with sips of water? Meds patient instructed to take am of surgery PONV PONV - housecleaner floor: PONV - housecleaner floor Female Yes 11/19/24 11:34 HX of Motion Sickness Yes 11/19/24 11:34 HX of N/V After Surgery Yes 11/19/24 11:34 Non-Smoker Yes 11/19/24 11:34 Duration of Surgery greater No 11/19/24 11:34 than 60 minutes Number of Risk Factors 4 11/19/24 11:34 PONV Score Severe Risk 11/19/24 11:34 Height & Weight Height & Weight: Anesthesia: Height & Weight Height 5 ft 8 in 11/21/24 09:18 Weight: 68.4 kg 11/21/24 09:18 Body Mass Index (BMI) 22.9 11/21/24 09:18 Respiratory Assessment Respiratory Assessment - housecleaner floor: Respiratory Tract Infection Hx - housecleaner floor Hx Respiratory Tract Infection No 11/19/24 11:34 STOP Sleep Apnea STOP Sleep Apnea - housecleaner floor: STOP Sleep Apnea - housecleaner floor Hx Hypertension No 11/19/24 11:34 Hx Sleep Apnea Yes 11/19/24 11:34 CPAP Yes 11/19/24 11:34 BIPAP No 11/19/24 11:34 Do you snore loudly (louder than talking or can be heard Do you often feel tired/ fatigued/ sleepy during daytime? Has anyone observed you stop breathing during sleep? STOP Results Positive 11/19/24 11:34 QUESTION #5 FULL TEXT : Do you snore loudly (louder than talking or can be heard through closed doors)? 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 Specify any problems Hx of Preganancy in last 3 No 11/19/24 11:34 Months Nurse Filling Out Transfusion [id number] 11/19/24 11:34 & Questions: Date: 11/19/24 11/19/24 11:34 Time: 11:36 11/19/24 11:34 Patient unable to answer at this time (ie. confused, unrespo /Reproduction History /Reproductive History - housecleaner floor: /Reproductive Hx- housecleaner floor Hx Now No 11/19/24 11:34 Gestational Age (in weeks): EDC: Hx Hx Para Hx Section SAB No 11/19/24 11:34 Active Medications Active Medications: Current Medications Generic Name Dose Route Start Last Admin Trade Name Freq PRN Reason Stop Dose Admin Lactated Ringer's 1,000 mls @ 15 mls/hr 11/21/24 09:00 IV .Q48H VINCE PFSH Medical History Auditory processing disorder Wears hearing aid Low iron Gastric reflux Nohemi-Danlos disease Mast cell disease POTS (postural orthostatic tachycardia syndrome) Carcinoid tumor Abnormal uterine bleeding (AUB) Injury of back Injury of head and neck Dietary restriction Non-smoker History of echocardiogram Asthma Home Medications ?Medication ?Instructions ?Recorded ?Last Taken ?Type magnesium glycinate 100 mg (as 100 mg PO QDAY 04/24/17 11/19/24 History glycinate) tablet ondansetron HCl 4 mg tablet 4 mg PO Q6H PRN PRN for na usea #60 08/28/23 Unknown Rx TABLETS MITOCORE 2 tab PO DAILY 11/19/24 09/1 History SULFURZYME 2 tab PO DAILY 11/19/24/0 12/05 History digestive enzymes 2 tab PO TID 11/19/24 History Allergy/AdvReac Type Severity Reaction Status Date / Time adhesive Allergy Rash Verified 11/21/24 09:17 doxycycline Allergy Other Verified 11/21/24 09:17 gluten AdvReac Other Verified 11/21/24 09:17 metoclopramide (From Reglan) AdvReac Other Verified 11/21/24 09:17 metoclopramide HCl (From AdvReac Other Verified 11/21/24 09:17 Reglan) Surgical History H/O decompression of ulnar nerve Hx of dilation and curettage History of back surgery Hx of colonoscopy History of esophagogastroduodenoscopy (EGD) Hx of excision of lamina of cervical vertebra for decompression of spinal cord Social History Smoking Status: Never smoker alcohol intake: never Review of Systems (Anesthesia) ROS Narrative System reviewed and no additional complaints, except as documented. Physical Exam Const alert and oriented x3
[2024-11-21] MEDS: Lactated Ringers 1,000 ML 15 ML IV (09:33)
[2024-11-21] MEDS: Lidocaine 1% (5 ml sdv) 5 ML Vial 10 ML IV (09:43)
--- NOTE | 2024-11-21 09:56 | PCM.POST.ANE ---
Anesthesia: Postop Eval I Current Vital Signs Temperature: 97.9 F Pulse Rate: 68 Blood Pressure: 99/64 Respiratory Rate: 16 Pulse Ox: 97 Oxygen Delivery Method: Room Air Assessment Airway patent: Yes Spontaneous unlabored respirations: Yes Mental status: Calm and Asleep nausea: No Vomiting: No Anesthesia Complication: No Fluid Hydration Crystalloid volume administer (ml): 300 Total IV fluid infused: 300 Progress Note Anesthesia document: Postop Eval 1 completed: Yes
--- NOTE | 2024-11-21 10:02 | OP.EGD_ITS ---
Patient Name: Francine Sarah Procedure Date: 11/21/2024 9:40 AM Date of : 2000 Age: 24 Procedure: Upper GI endoscopy Indications: Esophageal reflux, Failure to respond to medical treatment Providers: Alvarado Alfonso DO Referring MD: Sarah Ponce Medicines: Monitored Anesthesia Care Patient Profile: Patient has symptoms of chronic dyspepsia and acute heartburn. Complications: No immediate complications. Procedure: Pre-Anesthesia Assessment: - Prior to the procedure, a History and Physical was performed, and patient medications and allergies were reviewed. The patient is competent. The risks and benefits of the procedure and the sedation options and risks were discussed with the patient. All questions were answered and informed consent was obtained. Patient identification and proposed procedure were verified by the physician in the pre-procedure area. Mental Status Examination: alert and oriented. Airway Examination: normal oropharyngeal airway and neck mobility. Respiratory Examination: clear to auscultation. Prophylactic Antibiotics: The patient does not require prophylactic antibiotics. Prior Anticoagulants: The patient has taken no anticoagulant or antiplatelet agents. ASA Grade Assessment: II - A patient with mild systemic disease. After reviewing the risks and benefits, the patient was deemed in satisfactory condition to undergo the procedure. The anesthesia plan was to use monitored anesthesia care (MAC). Immediately prior to administration of medications, the patient was re-assessed for adequacy to receive sedatives. The heart rate, respiratory rate, oxygen saturations, blood pressure, adequacy of pulmonary ventilation, and response to care were monitored throughout the procedure. The physical status of the patient was re-assessed after the procedure. After obtaining informed consent, the endoscope was passed under direct vision. Throughout the procedure, the patient's blood pressure, pulse, and oxygen saturations were monitored continuously. The Endoscope was introduced through the mouth, and advanced to the second part of duodenum. The upper GI endoscopy was accomplished without difficulty. The patient tolerated the procedure well. Scope In: 9:46:54 AM Scope Out: 9:52:50 AM Total Procedure Duration Time 0 hours 5 minutes 56 seconds Findings: The Z-line was irregular and was found 38 cm from the incisors. Biopsies were taken with a cold forceps for histology. Verification of patient identification for the specimen was done. Estimated blood loss was minimal. The Hightail capsule was activated and then calibrated by submersion into the appropriate buffer solutions. Detachment and retrieval of a MARKHAM pH capsule was accomplished [Device]. Suspect gastroparesis due to absence of peristalsis, patient symptoms and retained gastric contents. The examined duodenum was normal. Impression: - Z-line irregular, 38 cm from the incisors. Biopsied. - Gastroparesis. - Normal examined duodenum. - The MARKHAM capsule was activated and then calibrated by submersion into the appropriate buffer solutions. Recommendation: - Discharge patient to home. - Resume previous diet. - Continue present medications. - Await pathology results. Procedure Code(s): --- Professional --- 68833, Esophagogastroduodenoscopy, flexible, transoral; with biopsy, single or multiple CPT copyright 2021 [employer]. All rights reserved. The codes documented in this report are preliminary and upon forwarder operator review may be revised to meet current compliance requirements. Alvarado Alfonso DO 11/21/2024 10:02:15 AM This report has been signed electronically. Number of Addenda: 0 Note Initiated On: 11/21/2024 9:40 AM
--- NOTE | 2024-11-21 10:03 | OP.PROVAT_ITS ---
11/21/2024 Sarah Ponce [address] [place] [address] Re : Upper GI endoscopy procedure for Francine Sarah Dear Dr. Ponce This procedure was performed on November. My impressions and recommendations are as follows: Impressions : - Z-line irregular, 38 cm from the incisors. Biopsied. - Gastroparesis. - Normal examined duodenum. - The MARKHAM capsule was activated and then calibrated by submersion into the appropriate buffer solutions. Recommendations : - Discharge patient to home. - Resume previous diet. - Continue present medications. - Await pathology results. My findings are described in the full procedure note, which is enclosed. If I can be of further assistance, please feel free to contact me at . Sincerely, Alvarado Alfonso, 11/21/2024 10:02:15 AM This report has been signed electronically.
--- NOTE | 2024-11-21 14:14 | POSTOPAN2_ITS ---
Anesthesia Postop Eval I Sum Postop Eval Completion status Anesthesia document: Postop Eval 1 completed: Yes Anesthesia Postop Eval I Summary Anesthesia Postop Eval I Summary: Anesthesia Postop Eval I: Assessment Summary Airway patent Yes 11/21/24 09:59 FUSE [email or web address].MEDM Spontaneous unlabored Yes 11/21/24 09:59 FUSE ASSEMBLER.MEDM respirations Mental status Calm,Asleep 11/21/24 09:59 FUSE ASSEMBLER.MEDM nausea No 11/21/24 09:59 FUSE ASSEMBLER.MEDM Vomiting No 11/21/24 09:59 FUSE ASSEMBLER.MEDM Anesthesia Postop Eval I: Fluid Summary Crystalloid volume administer 300 11/21/24 09:59 FUSE ASSEMBLER.MEDM (ml) Colloids volume administered ( ml) Blood Product volume administered (ml) Total IV fluid infused 300 11/21/24 09:59 FUSE ASSEMBLER.MEDM Anesthesia Postop Eval I: Summary Notes Anesthesia Complication No 11/21/24 09:59 FUSE [email or web address].MEDM Anesthesia Complication Comment: Post-operative progress note Anesthesia: Postop Eval II Evaluation Mental status: Awake and Calm Pain Level: 0 nausea: No Vomiting: No Complications Anesthesia Complication: No
--- NOTE | 2024-11-21 14:14 | PCM.POSTANE2 ---
Anesthesia Postop Eval I Sum Postop Eval Completion status Anesthesia document: Postop Eval 1 completed: Yes Anesthesia Postop Eval I Summary Anesthesia Postop Eval I Summary: Anesthesia Postop Eval I: Assessment Summary Airway patent Yes 11/21/24 09:59 PARKING LOT MANAGER.MEDM Spontaneous unlabored Yes 11/21/24 09:59 PARKING LOT MANAGER.MEDM respirations Mental status Calm,Asleep 11/21/24 09:59 PARKING LOT MANAGER.MEDM nausea No 11/21/24 09:59 PARKING LOT MANAGER.MEDM Vomiting No 11/21/24 09:59 PARKING LOT MANAGER.MEDM Anesthesia Postop Eval I: Fluid Summary Crystalloid volume administer 300 11/21/24 09:59 PARKING LOT MANAGER.MEDM (ml) Colloids volume administered ( ml) Blood Product volume administered (ml) Total IV fluid infused 300 11/21/24 09:59 PARKING LOT MANAGER.MEDM Anesthesia Postop Eval I: Summary Notes Anesthesia Complication No 11/21/24 09:59 PARKING LOT MANAGER.MEDM Anesthesia Complication Comment: Post-operative progress note Anesthesia: Postop Eval II Evaluation Mental status: Awake and Calm Pain Level: 0 nausea: No Vomiting: No Complications Anesthesia Complication: No
--- NOTE | 2024-12-03 17:33 | PCM.OPRPT ---
Procedures Digestive 40xxx-49xxx: Other Procedure See Notes (EGD with Quinteros pH) Operative Report (Standard) Operative Information Date of Procedure: 11/21/24 Pre-Operative Diagnosis: Epigastric pain Post-Operative Diagnosis: Normal Quinteros pH study Surgery/Procedure Performed: EGD with Quinteros placement whiting machine operator: No Type of Anesthesia: MAC/Supplemental RN Documented Start/Stop Times: Operation Date: 11/21/24 09:30 Case Time Into Pre-Op 11/21/24 08:58 Out of Pre-Op 11/21/24 09:37 Anesthesia Start 11/21/24 09:39 Into Room 11/21/24 09:39 Procedure Start 11/21/24 09:46 Procedure End 11/21/24 09:52 Anesthesia End 11/21/24 09:56 Out of Room 11/21/24 09:56 Into Recovery 11/21/24 09:57 Into Phase II Recovery 11/21/24 10:21 Out of Recovery 11/21/24 10:21 Out of Phase II 11/21/24 11:03 Procedure Start Time: 10:00 Procedure Stop Time: 10:15 Select all DRAINS/GRAFTS/IMPLANTS that apply: None and Implanted device Implanted device details: Quinteros probe placed on the procedure Estimated Blood Loss: None Specimen collected: No Description of surgery: Patient underwent Quinteros pH study. Her total DeMeester score was 2.1. She had a symptom associated probability of 99.4 with 5 occurrences of chest pain and 12 occurrences of regurgitation. On day 1 her DeMeester score was only 1.0 was 4 reflux events all in the upright position. On day 2 her total DeMeester score was 2.9 with 18 reflux events all in the upright position. This study is not consistent with gastroesophageal reflux disease and decreased pH causing epigastric pain and chest pain. Surgical Findings: Normal manometry Complications Complications: No
== END 2024-11-21 11:04 | disposition home or self-care (01) ==
LOC: EN 08:50 → AC 08:53
PROVIDERS: Anesthesiology; PCP Internal Medicine; Referring Provider Internal Medicine; Visit Provider Internal Medicine Gastroenterology
PROC: (CPT 43235; principal; 2024-11-21 09:25)
DX: K31.84 Gastroparesis (principal); G90.1 Familial dysautonomia [Riley-Day]; K21.00 Gastro-esophageal reflux disease with esophagitis, without bleeding; K31.A0 Gastric intestinal metaplasia, unspecified; J45.909 Unspecified asthma, uncomplicated; K91.1 Postgastric surgery syndromes; K29.00 Acute gastritis without bleeding
CPT/HCPCS: 43239; 81025; 88305; J2405

== ENCOUNTER → 2025-02-03 | Outpatient (CLI) | payer OTHER, SELFPAY | END | disposition home or self-care (01) | LOC: LAB 15:51 | PROVIDERS: PCP Internal Medicine; Referring Provider Internal Medicine Gastroenterology; Visit Provider Internal Medicine Gastroenterology | DX: K21.9 Gastro-esophageal reflux disease without esophagitis (principal); K29.40 Chronic atrophic gastritis without bleeding; K91.1 Postgastric surgery syndromes | CPT/HCPCS: 36415 ==

== ENCOUNTER → 2025-02-14 | Outpatient (CLI) | payer OTHER, SELFPAY ==
--- NOTE | 2025-02-14 11:01 | NM_ITS ---
PROCEDURE: GASTRIC EMPTYING STUDY 02/14/2025 REASON FOR EXAM: BLOATING COMPARISON: None TECHNIQUE: Procedure Code: NMGES Modality: NM Procedure: GASTRIC EMPTYING STUDY The patient ingested a standard meal of oatmeal, radiopharmaceutical, and water. Total time taken to ingest the meal was minutes. There was no vomiting postprandially. Anterior and posterior planar images of the upper abdomen were obtained for 1 minute immediately following the meal at 1h, 2h and 4h if more than 10% of the activity persisted within the stomach. Regions of interest were drawn, and a geometric mean was used to calculate a [id number]. RADIOPHARMACEUTICAL: Technetium sulfur colloid DOSE 1.1mCi FINDINGS: Percent activity remaining in stomach: 1 hour 49 % (normal 37-90%) NM/Gastric Emptying Study IMPRESSION: Normal gastric emptying. Reading Location: [place] [id number]
== END | disposition home or self-care (01) ==
LOC: NM 11:00
PROVIDERS: PCP Internal Medicine; Referring Provider Internal Medicine Gastroenterology; Visit Provider Internal Medicine Gastroenterology
DX: K21.9 Gastro-esophageal reflux disease without esophagitis (principal); K29.40 Chronic atrophic gastritis without bleeding; K91.1 Postgastric surgery syndromes
CPT/HCPCS: 78264; A9541

== ENCOUNTER → 2025-03-03 | Outpatient (CLI) | payer OTHER, SELFPAY | END | disposition home or self-care (01) | LOC: LABSPEC 13:48 | PROVIDERS: PCP Internal Medicine; Referring Provider Internal Medicine Gastroenterology; Visit Provider Internal Medicine Gastroenterology | DX: K21.9 Gastro-esophageal reflux disease without esophagitis (principal); K91.1 Postgastric surgery syndromes | CPT/HCPCS: 82653 ==